=== PATIENT | female | born 1955 | race Caucasian/White ===

== ENCOUNTER 2016-07-30 14:01 | Emergency (ER) | payer MEDICARE, BC ==
[2016-07-30] MEDS ORDERED: Ondansetron 4 MG/2 ML SDV IVPUSH ONE (14:34)
[2016-07-30] MEDS ORDERED: Sodium Chloride 0.9% 10 ML Syringe FLUSH PRN (14:34)
[2016-07-30] MEDS ORDERED: Famotidine 20 MG/2 ML SDV IVPUSH ONE (14:34)
[2016-07-30] MEDS ORDERED: HYDROmorphone 1 MG/ML Syringe IVPUSH ONE (14:34)
--- NOTE | 2016-07-30 14:39 | EDM.PDOC ---
ED HPI GENERAL MEDICAL PROBLEM - General Chief Complaint: Gastrointestinal Problem Stated Complaint: VOMITING Time Seen by Provider: 07/30/16 14:25 Source of Information: Reports: Patient, RN Notes Reviewed - History of Present Illness INITIAL COMMENTS - FREE TEXT/NARRATIVE: 60-year-old female comes in with severe nausea vomiting. She states that she started with some nausea and mild abdominal achiness last evening. SHe now has severe repetitive vomiting. Continues to be very nauseated at this time. She has not been having diarrhea. No fever or chills. No major pain or cramping at this time. She's not been able to eat, not taking much for fluids. Her mouth is starting to get dry. She feels dizzy and lightheaded when standing. I see that she is on a fentanyl patch. She also does take hydrocodone a couple of times a day. She states that her "joints are very achy and uncomfortable". - Related Data Allergies Allergy/AdvReac Type Severity Reaction Status Date / Time amoxicillin Allergy Dizziness Verified 07/30/16 14:23 cefdinir Allergy Diarrhea Verified 07/30/16 14:23 clindamycin Allergy Blurred Verified 07/30/16 14:23 Vision esomeprazole magnesium Allergy Edema Verified 07/30/16 14:23 [From Vimovo] levofloxacin [From Levaquin] Allergy Insomnia Verified 07/30/16 14:23 morphine Allergy Tachycardia Verified 07/30/16 14:23 naproxen Allergy Edema Verified 07/30/16 14:23 Home Meds: Home Meds Acetaminophen [Tylenol] 325 mg PO DAILY PRN 05/22/15 [History] Albuterol Sulfate 2 puff IH Q4H PRN 05/22/15 [History] Fluticasone Propionate [Flonase] 1 spray NASBOTH DAILY 05/22/15 [History] Gabapentin [Neurontin] 800 mg PO TID 05/22/15 [History] Hydrocodone/Acetaminophen [[place] 5-325 Tablet] 1 each PO Q12H PRN 05/22/15 [ History] Ibuprofen [Advil] 600 mg PO DAILY PRN 05/22/15 [History] LORazepam [Ativan] 0.5 mg PO TID PRN 05/22/15 [History] Lisinopril 5 mg PO DAILY 05/22/15 [History] Mirtazapine [Remeron] 15 mg PO DAILY 05/22/15 [History] Pantoprazole [Protonix] 40 mg PO DAILY 05/22/15 [History] Propranolol [Inderal] 20 mg PO TID 05/22/15 [History] Pseudoephedrine HCl [Sudafed 12 Hour] 120 mg PO Q12H 05/22/15 [History] Triamterene/Hydrochlorothiazid [Triamterene-HCTZ 37.5-25 MG] 1 cap PO DAILY PRN 05/22/15 [History] Venlafaxine [Effexor XR] 300 mg PO DAILY 05/22/15 [History] Verapamil HCl [Verapamil ER] 240 mg PO DAILY 05/22/15 [History] Zolpidem [Ambien] 10 mg PO BEDTIME 05/22/15 [History] atorvaSTATin [Lipitor] 40 mg PO DAILY 05/22/15 [History] fentaNYL [Fentanyl] 1 each TD Q72H 05/22/15 [History] Insulin Glargine,Hum.Rec.Anlog [Tochelo Solni] 52 units SUBCUT QPM 07/30/16 [ History] rOPINIRole HCl [Requip] 2 tab PO QPM 07/30/16 [History] Past Medical History HEENT History: Reports: Other (See Below) Other HEENT History: lip ulcer, recurrent ear infections to right ear Cardiovascular History: Reports: High Cholesterol, Hypertension Respiratory History: Reports: Sleep Apnea Genitourinary History: Reports: Other (See Below) Other Genitourinary History: urge incontinence Neurological History: Reports: Migraines Psychiatric History: Reports: Depression Endocrine/Metabolic History: Reports: Diabetes, Type II Dermatologic History: Reports: Other (See Below) Other Dermatologic History: lumbago - Past Surgical History Neurological Surgical History: Reports: Spinal Fusion Musculoskeletal Surgical History: Reports: Carpal Tunnel, Knee Replacement Social & Family History - Tobacco Use Smoking Status *Q: Never Smoker - Recreational Drug Use Recreational Drug Use: No ED ROS GENERAL - Review of Systems Review Of Systems: See Below Constitutional: Denies: Fever, Chills HEENT: Denies: Sinus Problem, Throat Pain Respiratory: Denies: Shortness of Breath Cardiovascular: Denies: Chest Pain GI/Abdominal: Reports: Abdominal Pain (Mild generalized achiness), Nausea, Vomiting. Denies: Diarrhea, Hematochezia, Melena (Frequent severe) : Reports: No Symptoms Musculoskeletal: Reports: Joint Pain (Upper and lower extremities). Denies: Back Pain Skin: Reports: No Symptoms Neurological: Reports: Dizziness. Denies: Trouble Speaking, Difficulty Walking ED EXAM, GI/ABD - Physical Exam Exam: See Below General Appearance: Alert, Mild Distress Eyes: Bilateral: Normal Appearance Throat/Mouth: Normal Inspection, Normal Oropharynx Head: Atraumatic Neck: Supple, Full Range of Motion Respiratory/Chest: No Respiratory Distress, Lungs Clear, Normal Breath Sounds Cardiovascular: Regular Rate, Rhythm GI/Abdominal: Soft, Non-Tender. No: Guarding, Rebound Back Exam: No: CVA Tenderness (L), CVA Tenderness (R) Extremities: Normal Inspection. No: Pedal Edema, Leg Pain Neurological: Alert, Oriented, No Motor/Sensory Deficits Skin Exam: Warm, Dry, Normal Color Course - Vital Signs Last Recorded V/S: Last Vital Signs Temp 98.8 F 07/30/16 14:23 Pulse 86 07/30/16 14:23 Resp 20 07/30/16 14:23 BP 149/103 H 07/30/16 14:23 Pulse Ox 88 L 07/30/16 14:23 - Orders/Labs/Meds Orders: Active Orders 24 hr Category Date Time Status Peripheral IV Care [RC] . DIRECTED Care 07/30/16 14:35 Active Sodium Chloride 0.9% [Normal Saline] 1,000 ml Med 07/30/16 14:45 Active IV ONETIME Sodium Chloride 0.9% [Saline Flush] Med 07/30/16 14:34 Active 10 ml FLUSH ASDIRECTED PRN Peripheral IV Insertion Adult [OM.PC] Stat Oth 07/30/16 14:34 Ordered Medication Orders Sodium Chloride (Normal Saline) 1,000 mls @ 999 mls/hr IV ONETIME MOHSEN Last Admin: 07/30/16 14:46 Dose: 999 mls/hr Sodium Chloride (Saline Flush) 10 ml FLUSH ASDIRECTED PRN PRN Reason: Keep Vein Open Last Admin: 07/30/16 14:47 Dose: 10 ml Labs: Laboratory Tests 07/30/16 07/30/16 Range/Units 14:55 14:55 WBC 10.48 H (3.98-10.04) K/mm3 RBC 4.25 (3.98-5.22) M/mm3 Hgb 12.8 (11.2-15.7) gm/L Hct 39.5 (34.1-44.9) % MCV 92.9 (79.4-94.8) fl MCH 30.1 (25.6-32.2) pg MCHC 32.4 (32.2-35.5) g/dl RDW Std Deviation 42.1 (36.4-46.3) fL Plt Count 209 (182-369) K/mm3 MPV 9.7 (9.4-12.3) fl Neut % (Auto) 85.3 H (34.0-71.1) % Lymph % (Auto) 7.4 L (19.3-51.7) % [place] % (Auto) 6.5 (4.7-12.5) % Eos % (Auto) 0.5 L (0.7-5.8) Baso % (Auto) 0.2 (0.1-1.2) % Neut # (Auto) 8.94 H (1.56-6.13) K/mm3 Lymph # (Auto) 0.78 L (1.18-3.74) K/mm3 [place] # (Auto) 0.68 H (0.24-0.36) K/mm3 Eos # (Auto) 0.05 (0.04-0.36) K/mm3 Baso # (Auto) 0.02 (0.01-0.08) K/mm3 Manual Slide Review Abnormal smear Sodium 140 (136-145) mEq/L Potassium 3.5 (3.5-5.1) mEq/L Chloride 102 (98-107) mEq/L Carbon Dioxide 28 (21-32) mEq/L Anion Gap 13.5 (5-15) BUN 13 (7-18) mg/dL Creatinine 0.9 (0.55-1.02) mg/dL Est Cr Clr Drug Dosing 53.23 mL/min Estimated GFR (MDRD) > 60 (>60) mL/min BUN/Creatinine Ratio 14.4 (14-18) Glucose 168 H (74-106) mg/dL Calcium 8.7 (8.5-10.1) mg/dL Total Bilirubin 0.7 (0.2-1.0) mg/dL AST 23 (15-37) U/L ALT 25 (14-59) U/L Alkaline Phosphatase 116 (46-116) U/L Total Protein 6.6 (6.4-8.2) g/dl Albumin 3.4 (3.4-5.0) g/dl Globulin 3.2 gm/dL Albumin/Globulin Ratio 1.1 (1-2) Meds: Medications Generic Name Dose Route Start Last Admin Trade Name Freq PRN Reason Stop Dose Admin Sodium Chloride 1,000 mls @ 999 mls/hr 07/30/16 14:45 07/30/16 14:46 Normal Saline IV 999 mls/hr ONETIME MOHSEN Administration Sodium Chloride 10 ml 07/30/16 14:34 07/30/16 14:47 Saline Flush FLUSH 10 ml ASDIRECTED PRN Administration Keep Vein Open Discontinued Medications Generic Name Dose Route Start Last Admin Trade Name Freq PRN Reason Stop Dose Admin Famotidine 20 mg 07/30/16 14:34 07/30/16 14:49 Pepcid IVPUSH 07/30/16 14:35 20 mg ONETIME ONE Administration Hydromorphone HCl 1 mg 07/30/16 14:34 07/30/16 14:49 Dilaudid IVPUSH 07/30/16 14:35 1 mg ONETIME ONE Administration Ondansetron HCl 4 mg 07/30/16 14:34 07/30/16 14:45 Zofran IVPUSH 07/30/16 14:35 4 mg ONETIME ONE Administration - Re-Assessments/Exams Free Text/Narrative Re-Assessment/Exam: 07/30/16 16:26 feeling better after 1 L IV fluid, IV Zofran and IV Pepcid, she is no longer vomiting. Discharge instructions as documented. Departure - Departure Time of Disposition: 16:25 Disposition: Home, Self-Care 01 Condition: fair Clinical Impression: Vomiting - Discharge Information Forms: ED Department Discharge Additional Instructions: Your blood sugar today was 168, your chemistries otherwise looked good. Clear liquids until this evening, then very careful bland diet as tolerated. Zofran ODT if needed for further nausea or vomiting. Followup clinic if not much better within one to 2 days as expected, return to ED if symptoms worsening in any way - My Orders Last 24 Hours: My Active Orders 07/30/16 14:34 Sodium Chloride 0.9% [Saline Flush] 10 ml FLUSH ASDIRECTED PRN Peripheral IV Insertion Adult [OM.PC] Stat 07/30/16 14:35 Peripheral IV Care [RC] . DIRECTED 07/30/16 14:45 Sodium Chloride 0.9% [Normal Saline] 1,000 ml IV ONETIME - Assessment/Plan Last 24 Hours: My Active Orders 07/30/16 14:34 Sodium Chloride 0.9% [Saline Flush] 10 ml FLUSH ASDIRECTED PRN Peripheral IV Insertion Adult [OM.PC] Stat 07/30/16 14:35 Peripheral IV Care [RC] . DIRECTED 07/30/16 14:45 Sodium Chloride 0.9% [Normal Saline] 1,000 ml IV ONETIME
[2016-07-30] MEDS ORDERED: Sodium Chloride 0.9% 1,000 ML IV SCH (14:45)
[2016-07-30 16:50] VITALS: BP 158/60
== END 2016-07-30 16:51 | disposition home or self-care (01) ==
LOC: JD.ED 14:01
DX: R11.10 Vomiting, unspecified (principal); E78.00 Pure hypercholesterolemia, unspecified; I10 Essential (primary) hypertension; F32.9 Major depressive disorder, single episode, unspecified; E11.9 Type 2 diabetes mellitus without complications; Z88.1 Allergy status to other antibiotic agents; Z88.5 Allergy status to narcotic agent; Z79.899 Other long term (current) drug therapy; Z79.4 Long term (current) use of insulin
CPT/HCPCS: 36415; 80053; 85025; 96361; 96374; 96375; 99284; J1170; J2405; J7040; J7050

== ENCOUNTER 2017-07-23 12:05 | Emergency (ER) | payer MEDICARE, BC ==
[2017-07-23 12:34] VITALS: BP 139/86
[2017-07-23] MEDS ORDERED: Diphtheria,Pertussis(Acell),Tetanus Vaccine 0.5 ML SDV IM ONE (12:38)
[2017-07-23] MEDS ORDERED: Lidocaine 1% 50 ML MDV INJECT ONE (12:38)
--- NOTE | 2017-07-23 12:48 | EDM.PDOC ---
ED HPI GENERAL MEDICAL PROBLEM - General Chief Complaint: Laceration Stated Complaint: FELL MULTIPLE INJURIES Time Seen by Provider: 07/23/17 12:33 Source of Information: Reports: Patient, RN Notes Reviewed - History of Present Illness INITIAL COMMENTS - FREE TEXT/NARRATIVE: 7-year-old lady comes in with facial laceration. She tripped and fell on some cement outside doing some yard work. She did fall with her face and left knee against the concrete. She suffered abrasion injury of the forehead and suffered a laceration of her face between upper lip and nose. The lack is moderately deep and gaping. No intraoral injury. No headache at this time. There was no LOC. There's been no nausea or vomiting. Right Face Pain Score (Numeric/FACES): 2 - Related Data Allergies Allergy/AdvReac Type Severity Reaction Status Date / Time amoxicillin Allergy Dizziness Verified 07/23/17 12:23 cefdinir Allergy Diarrhea Verified 07/23/17 12:23 clindamycin Allergy Blurred Verified 07/23/17 12:23 Vision esomeprazole magnesium Allergy Edema Verified 07/23/17 12:23 [From Vimovo] levofloxacin [From Levaquin] Allergy Insomnia Verified 07/23/17 12:23 morphine Allergy Tachycardia Verified 07/23/17 12:23 naproxen Allergy Edema Verified 07/23/17 12:23 Home Meds: Home Meds Acetaminophen [Tylenol] 325 mg PO DAILY PRN 05/22/15 [History] Albuterol Sulfate 2 puff IH Q4H PRN 05/22/15 [History] Fluticasone Propionate [Flonase] 1 spray NASBOTH DAILY 05/22/15 [History] Gabapentin [Neurontin] 800 mg PO TID 05/22/15 [History] Hydrocodone/Acetaminophen [[place] 5-325 Tablet] 1 each PO Q12H PRN 05/22/15 [ History] Ibuprofen [Advil] 600 mg PO DAILY PRN 05/22/15 [History] LORazepam [Ativan] 0.5 mg PO TID PRN 05/22/15 [History] Lisinopril 5 mg PO DAILY 05/22/15 [History] Mirtazapine [Remeron] 15 mg PO DAILY 05/22/15 [History] Pantoprazole [Protonix] 40 mg PO DAILY 05/22/15 [History] Propranolol [Inderal] 20 mg PO TID 05/22/15 [History] Pseudoephedrine HCl [Sudafed 12 Hour] 120 mg PO Q12H 05/22/15 [History] Triamterene/Hydrochlorothiazid [Triamterene-HCTZ 37.5-25 MG] 1 cap PO DAILY PRN 05/22/15 [History] Venlafaxine [Effexor XR] 300 mg PO DAILY 05/22/15 [History] Verapamil HCl [Verapamil ER] 240 mg PO DAILY 05/22/15 [History] Zolpidem [Ambien] 10 mg PO BEDTIME 05/22/15 [History] atorvaSTATin [Lipitor] 40 mg PO DAILY 05/22/15 [History] fentaNYL [Fentanyl] 1 each TD Q72H 05/22/15 [History] Insulin Glargine,Hum.Rec.Anlog [Toujeo Solostar] 70 units SUBCUT QPM 07/30/16 [ History] rOPINIRole HCl [Requip] 2 tab PO TID 07/30/16 [History] Past Medical History HEENT History: Reports: Other (See Below) Other HEENT History: lip ulcer, recurrent ear infections to right ear Cardiovascular History: Reports: High Cholesterol, Hypertension Respiratory History: Reports: Sleep Apnea Genitourinary History: Reports: Other (See Below) Other Genitourinary History: urge incontinence Neurological History: Reports: Migraines Psychiatric History: Reports: Depression Endocrine/Metabolic History: Reports: Diabetes, Type II Dermatologic History: Reports: Other (See Below) Other Dermatologic History: lumbago - Past Surgical History Neurological Surgical History: Reports: Spinal Fusion Musculoskeletal Surgical History: Reports: Carpal Tunnel, Knee Replacement Social & Family History - Family History Family Medical History: Noncontributory - Tobacco Use Smoking Status *Q: Never Smoker Second Hand Smoke Exposure: No - Caffeine Use Caffeine Use: Reports: Coffee - Recreational Drug Use Recreational Drug Use: No ED ROS GENERAL - Review of Systems Review Of Systems: See Below Constitutional: Reports: No Symptoms HEENT: Denies: Ear Discharge, Ear Pain, Nosebleed, Nose Pain Respiratory: Denies: Shortness of Breath Cardiovascular: Denies: Chest Pain GI/Abdominal: Denies: Abdominal Pain, Nausea, Vomiting Musculoskeletal: Denies: Neck Pain, Back Pain, Joint Pain Skin: Reports: Other (Facial lack) Neurological: Denies: Headache, Numbness, Tingling, Trouble Speaking, Difficulty Walking, Weakness ED EXAM, SKIN/RASH Exam: See Below General Appearance: Alert, No Apparent Distress Eye Exam: Bilateral Eye: PERRL Ears: Normal External Exam Nose: Normal Inspection Throat/Mouth: Normal Inspection, Other Head: Other (No intraoral injury superficial abrasion of the forehead) Neck: Supple Respiratory/Chest: No Respiratory Distress Extremities: Normal Inspection, Normal Range of Motion, Other (No bony tenderness, left knee nontender, good range of motion) Neurological: Alert, Oriented, No Motor/Sensory Deficits Skin: Warm, Dry, Other (2 cm laceration below the right nares, moderately deep, gaping) ED SKIN PROCEDURES - Laceration/Wound Repair Face Lac/Wound length In cm: 1.5 Appearance: Linear Distal NVT: Neuro & Vascular Intact Anesthetic Type: Local Local Anesthesia - Lidocaine (Xylocaine): 1% Plain # of Sutures: 5 Suture Type: Nylon Suture Size: other (and 5-0) Course - Vital Signs Last Recorded V/S: Last Vital Signs Temp 97.3 F 07/23/17 12:33 Pulse 79 07/23/17 12:33 Resp 16 07/23/17 12:33 BP 139/86 07/23/17 12:33 Pulse Ox 94 L 07/23/17 12:33 - Orders/Labs/Meds Orders: Active Orders 24 hr Category Date Time Status Vaccines to be Administered [RC] PER UNIT ROUTINE Care 07/23/17 12:39 Active Meds: Medications Discontinued Medications Generic Name Dose Route Start Last Admin Trade Name Vaibhav PRN Reason Stop Dose Admin Diphtheria/Tetanus/Acell Pertussis 0.5 ml 07/23/17 12:38 07/23/17 12:47 Adacel IM 07/23/17 12:39 0.5 ml .ONCE ONE Administration Lidocaine HCl 50 ml 07/23/17 12:38 07/23/17 12:48 Xylocaine 1% INJECT 07/23/17 12:39 50 ml ONETIME ONE Administration Departure - Departure Time of Disposition: 13:50 Disposition: Home, Self-Care 01 Condition: Fair Clinical Impression: Forehead abrasion Qualifiers: Encounter type: initial encounter Qualified Code(s): S00.81XA - Abrasion of other part of head, initial encounter Facial laceration Qualifiers: Encounter type: initial encounter Qualified Code(s): S01.81XA - Laceration without foreign body of other part of head, initial encounter - Discharge Information Referrals: Bill Quiros MD [Primary Care Provider] - Forms: ED Department Discharge Additional Instructions: Laceration care instructions, stitches should come out in about 5-6 days, apply antibiotic ointment 2-3 times daily, there is no charge if you choose to have these taken out at her [facility]. Call [phone] for appointment. - My Orders Last 24 Hours: My Active Orders 07/23/17 12:39 Vaccines to be Administered [RC] PER UNIT ROUTINE - Assessment/Plan Last 24 Hours: My Active Orders 07/23/17 12:39 Vaccines to be Administered [RC] PER UNIT ROUTINE
== END 2017-07-23 14:20 | disposition home or self-care (01) ==
LOC: JD.ED 12:05
DX: S01.21XA Laceration without foreign body of nose, initial encounter (principal); S00.81XA Abrasion of other part of head, initial encounter; E78.00 Pure hypercholesterolemia, unspecified; I10 Essential (primary) hypertension; Z88.1 Allergy status to other antibiotic agents; Z23 Encounter for immunization; Z88.8 Allergy status to other drugs, medicaments and biological substances; W01.0XXA Fall on same level from slipping, tripping and stumbling without subsequent striking against object, initial encounter; Y92.007 Garden or yard of unspecified non-institutional (private) residence as the place of occurrence of the external cause
CPT/HCPCS: 12011; 90471; 90715; 99282; 99284-25

== ENCOUNTER 2018-06-21 21:40 | Emergency (ER) | payer MEDICARE, BC ==
[2018-06-21 21:50] VITALS: BP 172/87
--- NOTE | 2018-06-21 22:26 | EDM.PDOC ---
ED HPI GENERAL MEDICAL PROBLEM - General Chief Complaint: Genitourinary Problem Stated Complaint: BLOOD IN URINE Time Seen by Provider: 06/21/18 21:50 Source of Information: Reports: Patient History Limitations: Reports: No Limitations - History of Present Illness INITIAL COMMENTS - FREE TEXT/NARRATIVE: The patient presents with hematuria. At about 7:30 tonight the patient had urgency and when she went she had some blood in her urine. She had no pain with urination but she had some pressure in her lower abdomen. She has not had a bladder infection in years. She has no fever or chills. She has no nausea or vomiting. Onset: Sudden Duration: Hour(s): Location: Reports: Abdomen Quality: Reports: Pressure Severity: Mild Improves with: Reports: None Worsens with: Reports: None Associated Symptoms: Denies: Chest Pain, Cough, Fever/Chills, Headaches, Nausea/ Vomiting, Shortness of Breath - Related Data Allergies Allergy/AdvReac Type Severity Reaction Status Date / Time amoxicillin Allergy Dizziness Verified 07/23/17 12:23 cefdinir Allergy Diarrhea Verified 07/23/17 12:23 clindamycin Allergy Blurred Verified 07/23/17 12:23 Vision esomeprazole magnesium Allergy Edema Verified 07/23/17 12:23 [From Vimovo] levofloxacin [From Levaquin] Allergy Insomnia Verified 07/23/17 12:23 morphine Allergy Tachycardia Verified 07/23/17 12:23 naproxen Allergy Edema Verified 07/23/17 12:23 Home Meds: Home Meds Acetaminophen [Tylenol] 325 mg PO DAILY PRN 05/22/15 [History] Albuterol Sulfate 2 puff IH Q4H PRN 05/22/15 [History] Fluticasone Propionate [Flonase] 1 spray NASBOTH DAILY 05/22/15 [History] Gabapentin [Neurontin] 800 mg PO TID 05/22/15 [History] Hydrocodone/Acetaminophen [[place] 5-325 Tablet] 5 - 325 mg PO Q12H PRN 05/22/15 [ History] Ibuprofen [Advil] 600 mg PO DAILY PRN 05/22/15 [History] LORazepam [Ativan] 1 mg PO BID 05/22/15 [History] Lisinopril 5 mg PO DAILY 05/22/15 [History] Mirtazapine [Remeron] 15 mg PO DAILY 05/22/15 [History] Pantoprazole [Protonix] 40 mg PO DAILY 05/22/15 [History] Propranolol [Inderal] 20 mg PO TID 05/22/15 [History] Triamterene/Hydrochlorothiazid [Triamterene-HCTZ 37.5-25 MG] 1 cap PO DAILY PRN 05/22/15 [History] Venlafaxine [Effexor XR] 300 mg PO DAILY 05/22/15 [History] Verapamil HCl [Verapamil ER] 240 mg PO DAILY 05/22/15 [History] Zolpidem [Ambien] 10 mg PO BEDTIME 05/22/15 [History] atorvaSTATin [Lipitor] 40 mg PO DAILY 05/22/15 [History] fentaNYL [Fentanyl] 1 each TD Q72H 05/22/15 [History] Insulin Glargine,Hum.Rec.Anlog [Toujeo Solostar] 76 units SUBCUT BEDTIME [History] rOPINIRole HCl [Requip] 0.75 mg PO BEDTIME 07/30/16 [History] Nitrofurantoin Monohyd/M-Cryst [Macrobid 100 mg Capsule] 100 mg PO BID #10 capsule 06/22/18 [Rx] Ondansetron [Zofran ODT] 4 mg PO Q6H PRN #20 tab.dis 06/22/18 [Rx] Past Medical History HEENT History: Reports: Other (See Below) Other HEENT History: lip ulcer, recurrent ear infections to right ear Cardiovascular History: Reports: High Cholesterol, Hypertension Respiratory History: Reports: Sleep Apnea Genitourinary History: Reports: Other (See Below) Other Genitourinary History: urge incontinence Neurological History: Reports: Migraines Psychiatric History: Reports: Depression Endocrine/Metabolic History: Reports: Diabetes, Type II Dermatologic History: Reports: Other (See Below) Other Dermatologic History: lumbago - Past Surgical History Neurological Surgical History: Reports: Spinal Fusion Musculoskeletal Surgical History: Reports: Carpal Tunnel, Knee Replacement Social & Family History - Family History Family Medical History: Noncontributory - Tobacco Use Smoking Status *Q: Never Smoker - Caffeine Use Caffeine Use: Reports: Coffee - Recreational Drug Use Recreational Drug Use: No ED ROS GENERAL - Review of Systems Review Of Systems: See Below Constitutional: Reports: No Symptoms HEENT: Reports: No Symptoms Respiratory: Reports: No Symptoms Cardiovascular: Reports: No Symptoms Endocrine: Reports: No Symptoms GI/Abdominal: Reports: Abdominal Pain : Reports: Frequency, Hematuria, Urgency. Denies: Dysuria Musculoskeletal: Reports: No Symptoms Skin: Reports: No Symptoms ED EXAM, RENAL/ - Physical Exam Exam: See Below Exam Limited By: No Limitations General Appearance: Alert, No Apparent Distress Ears: Normal External Exam Nose: Normal Inspection Head: Atraumatic, Normocephalic Neck: Normal Inspection Respiratory/Chest: No Respiratory Distress, Lungs Clear, Normal Breath Sounds Cardiovascular: Regular Rate, Rhythm, No Edema, No Murmur GI/Abdominal: Soft, Non-Tender, No Organomegaly, No Mass Back Exam: Normal Inspection Extremities: Normal Inspection Neurological: Alert, Oriented, No Motor/Sensory Deficits Course - Vital Signs Last Recorded V/S: Last Vital Signs Temp 98.1 F 06/21/18 21:46 Pulse 82 06/21/18 21:46 Resp 20 06/21/18 21:46 BP 172/87 H 06/21/18 21:46 Pulse Ox 93 L 06/21/18 21:46 - Orders/Labs/Meds Orders: Active Orders 24 hr Category Date Time Status Abdomen Pelvis wo Cont [CT] Stat Exams 06/21/18 22:39 Taken CULTURE URINE [RM] Stat Lab 06/21/18 22:05 Received Labs: Laboratory Tests 06/21/18 06/21/18 06/21/18 Range/Units 22:05 22:50 22:50 WBC 9.84 (3.98-10.04) K/mm3 RBC 4.08 (3.98-5.22) M/mm3 Hgb 12.1 (11.2-15.7) gm/L Hct 39.0 (34.1-44.9) % MCV 95.6 H (79.4-94.8) fl MCH 29.7 (25.6-32.2) pg MCHC 31.0 L (32.2-35.5) g/dl RDW Std Deviation 47.2 H (36.4-46.3) fL Plt Count 208 (182-369) K/mm3 MPV 10.0 (9.4-12.3) fl Neut % (Auto) 70.8 (34.0-71.1) % Lymph % (Auto) 17.6 L (19.3-51.7) % [place] % (Auto) 8.3 (4.7-12.5) % Eos % (Auto) 2.6 (0.7-5.8) Baso % (Auto) 0.4 (0.1-1.2) % Neut # (Auto) 6.96 H (1.56-6.13) K/mm3 Lymph # (Auto) 1.73 (1.18-3.74) K/mm3 [place] # (Auto) 0.82 H (0.24-0.36) K/mm3 Eos # (Auto) 0.26 (0.04-0.36) K/mm3 Baso # (Auto) 0.04 (0.01-0.08) K/mm3 Sodium 145 (136-145) mEq/L Potassium 3.7 (3.5-5.1) mEq/L Chloride 105 (98-107) mEq/L Carbon Dioxide 31 (21-32) mEq/L Anion Gap 12.7 (5-15) BUN 10 (7-18) mg/dL Creatinine 0.9 (0.55-1.02) mg/dL Est Cr Clr Drug Dosing 51.92 mL/min Estimated GFR (MDRD) > 60 (>60) mL/min BUN/Creatinine Ratio 11.1 L (14-18) Glucose 123 H (80-115) mg/dL Calcium 9.7 (8.5-10.1) mg/dL Total Bilirubin 0.4 (0.2-1.0) mg/dL AST 18 (15-37) U/L ALT 21 (14-59) U/L Alkaline Phosphatase 136 H (46-116) U/L Total Protein 6.7 (6.4-8.2) g/dl Albumin 3.6 (3.4-5.0) g/dl Globulin 3.1 gm/dL Albumin/Globulin Ratio 1.2 (1-2) Lipase 95 (73-393) U/L Urine Color Red H (Yellow) Urine Appearance Turbid H (Clear) Urine pH 7.0 (5.0-8.0) Ur Specific [place] 1.025 (1.005-1.030) Urine Protein 2+ H (Negative) Urine Glucose (UA) Negative (Negative) Urine Ketones Negative (Negative) Urine Occult Blood 3+ H (Negative) Urine Nitrite Negative (Negative) Urine Bilirubin 1+ H (Negative) Urine Urobilinogen 1.0 (0.2-1.0) Ur Leukocyte Esterase Trace H (Negative) Urine RBC >100 H (0-5) /hpf Urine WBC 0-5 (0-5) /hpf Ur Epithelial Cells 0-5 (0-5) /hpf Urine Bacteria Few (FEW) /hpf Urine Mucus Not seen (FEW) /hpf - Re-Assessments/Exams Free Text/Narrative Re-Assessment/Exam: 06/21/18 22:26 I ordered a UA. 06/22/18 00:08 Her UA shows blood but not many WBCs or bacteria. I am concerned more about a kidney stone now. I have ordered labs and a CT of her abdomen and pelvis without contrast. 06/22/18 00:09 Her CBC looks good. Her CMP looks good. Her lipase is normal. Her CT shows mild pervesical stranding could reflect cystitis. I have a urine culture cooking and I ordered a urine culture. I will need to get her on some macrobid and have her follow up with her doctor. Departure - Departure Time of Disposition: 00:20 Disposition: Home, Self-Care 01 Condition: Good Clinical Impression: UTI, Urinary tract infectious disease - Discharge Information *PRESCRIPTION DRUG MONITORING PROGRAM REVIEWED*: Not Applicable *COPY OF PRESCRIPTION DRUG MONITORING REPORT IN PATIENT SHRADDHA: Not Applicable Prescriptions: Nitrofurantoin Monohyd/M-Cryst [Macrobid 100 mg Capsule] 100 mg PO BID #10 capsule Ondansetron [Zofran ODT] 4 mg PO Q6H PRN #20 tab.dis PRN Reason: Nausea\vomiting Referrals: Bill Quiros MD [Primary Care Provider] - 1 Week Forms: ED Department Discharge Additional Instructions: Take the zofran every 6 hours as needed for nausea and vomiting. Drink plenty of water. Take the macrobid 2 times per day for 5 days. Follow up with Dr Quiros in a week. Please return if you are worse. - My Orders Last 24 Hours: My Active Orders 06/21/18 22:05 CULTURE URINE [RM] Stat 06/21/18 22:39 Abdomen Pelvis wo Cont [CT] Stat - Assessment/Plan Last 24 Hours: My Active Orders 06/21/18 22:05 CULTURE URINE [RM] Stat 06/21/18 22:39 Abdomen Pelvis wo Cont [CT] Stat
[2018-06-22] MEDS ORDERED: Ondansetron 4 MG Tab.DIS PO ONE (00:14)
[2018-06-22] MEDS ORDERED: Nitrofurantoin Monohydrate/Macrocrystalline 100 MG Cap PO ONE (00:14)
--- NOTE | 2018-06-22 07:14 | CT ---
CT abdomen and pelvis Technique: Multiple axial sections were obtained from above the dome of the diaphragm inferiorly through the pubic symphysis. Intravenous and oral contrast was not utilized. Study has been performed as a ureteral stone protocol. Comparison: No prior abdominal imaging is available. Findings: Kidneys show no abnormal calcifications. No ureteral dilatation is seen. No ureteral calculi are identified. Preliminary report states perivesical stranding which I believe is incidental and due to under-distention of the bladder. Visualized lung bases show nothing acute. Noncontrast appearance of the liver appears within normal limits. Small hiatal hernia is seen. Esophageal wall thickening is noted most likely due to changes of chronic reflux esophagitis. Spleen size is normal. Adrenal glands show no nodule. Pancreas is within normal limits. Gallbladder contains no calcified gallstones. Aorta shows no aneurysm. No retroperitoneal adenopathy or mesenteric abnormalities are seen. No pelvic mass or adenopathy is seen. Bone window settings were reviewed which show degenerative change scattered within the spine. Impression: 1. No renal calculi or ureteral stone. 2. Small hiatal hernia with esophageal wall thickening most likely representing changes of chronic reflux esophagitis. 3. Other incidental findings. Nothing acute is appreciated. Diagnostic code #2 I mostly agree with preliminary report from [facility], finalized on 06/22/18, 1:02 AM Central Time, code #2
== END 2018-06-22 00:23 | disposition home or self-care (01) ==
LOC: JD.ED 21:40
DX: N39.0 Urinary tract infection, site not specified (principal); I10 Essential (primary) hypertension; E78.00 Pure hypercholesterolemia, unspecified; E11.9 Type 2 diabetes mellitus without complications; Z79.899 Other long term (current) drug therapy; Z88.5 Allergy status to narcotic agent; Z88.6 Allergy status to analgesic agent; Z88.1 Allergy status to other antibiotic agents; Z88.8 Allergy status to other drugs, medicaments and biological substances
CPT/HCPCS: 36415; 74176; 80053; 81001; 83690; 85025; 87086; 87088; 87186; 99284; A9270; 99283

== ENCOUNTER 2019-08-06 10:46 | Emergency (ER) | payer MEDICARE, BC ==
--- NOTE | 2019-08-06 11:07 | EDM.PDOC ---
ED HPI GENERAL MEDICAL PROBLEM - General Chief Complaint: Cardiovascular Problem Stated Complaint: SWOLLEN BODY/HEART PRESSURE/FLUID IN LUNGS/SOB Time Seen by Provider: 08/06/19 10:59 Source of Information: Reports: Patient, RN Notes Reviewed History Limitations: Reports: No Limitations - History of Present Illness INITIAL COMMENTS - FREE TEXT/NARRATIVE: Patient is a 63-year-old female who presents to the ED for the evaluation of a few different complaints. Patient notes that over the last 3 weeks she has been on and off Lasix. She states that she is currently taking 40 mg in the morning for these issues. Patient notes that she has gained over 27 pounds in the last 3 weeks, but states that the Lasix does seem to help a little bit. Patient states that today however she developed increasing shortness of breath, generalized lethargy, some chest discomfort and feels like her chest is heavy and it is harder to breathe, or get air in and out. Patient states she is not short of breath at rest necessarily, but does get quite winded with any sort of exertion. The patient notes that she has had increased urinary frequency due to the increased Lasix, but has not had any dysuria or urgency symptoms. She has not had any fever/chills, chest pain of sorts, nausea/vomiting/diarrhea or constipation. The patient does appreciate some swelling in her lower legs, and also some open sores for which she has been doctoring with mupirocin and antibiotics recently. She also notes that she had an echocardiogram done recently and told she had a "stiff heart". She states that she had vascular ultrasound done as well and that seem to be within normal limits. She had this done at the [facility]. Patient's primary care provider is Dr. Quiros. - Related Data Allergies Allergy/AdvReac Type Severity Reaction Status Date / Time esomeprazole magnesium Allergy Severe Edema Verified 08/06/19 11:05 [From Vimovo] amoxicillin Allergy Dizziness Verified 08/06/19 11:05 cefdinir Allergy Diarrhea Verified 08/06/19 11:05 clindamycin Allergy Blurred Verified 08/06/19 11:05 Vision duloxetine Allergy Delusions Verified 08/06/19 11:05 esomeprazole [From Nexium] Allergy Swelling Verified 08/06/19 11:05 levofloxacin [From Levaquin] Allergy Insomnia Verified 08/06/19 11:05 morphine Allergy Tachycardia Verified 08/06/19 11:05 naproxen Allergy Edema Verified 08/06/19 11:05 rivaroxaban [From Xarelto] Allergy Change Verified 08/06/19 11:05 Mental Status sitagliptin Allergy Shortness Verified 08/06/19 11:05 of Breath Home Meds: Home Meds Hydrocodone/Acetaminophen [[place] 5-325 Tablet] 5 - 325 mg PO Q12H PRN 05/22/15 [ History] Mirtazapine [Remeron] 22.5 mg PO DAILY 05/22/15 [History] Venlafaxine [Effexor XR] 150 mg PO BID 05/22/15 [History] atorvaSTATin [Lipitor] 40 mg PO DAILY 05/22/15 [History] rOPINIRole HCl [Requip] 0.5 mg PO ASDIRECTED 07/30/16 [History] Ondansetron [Zofran ODT] 4 mg PO Q6H PRN #20 tab.dis 06/22/18 [Rx] Albuterol [Ventolin HFA] 2 puff INH Q4H PRN 10/02/18 [History] Docusate Sodium [Colace] 100 mg PO DAILY PRN 10/02/18 [History] Fluticasone Propionate [Flonase] 2 spray NASBOTH DAILY 10/02/18 [History] Gabapentin [Neurontin] 800 mg PO TID 10/02/18 [History] Insulin Glargine,Hum.Rec.Anlog [Toujeo Solostar] 76 units SQ BEDTIME 10/02/18 [ History] Ondansetron [Zofran] 4 mg PO Q6H PRN 10/02/18 [History] Propranolol [Inderal] 20 mg PO TID 10/02/18 [History] Trolamine Salicylate/Aloe Vera [Aspercreme 10% Cream] 1 dose TOP ASDIRECTED PRN 10/02/18 [History] Verapamil [Covera-HS] 240 mg PO DAILY 10/02/18 [History] fentaNYL [Duragesic] 25 mcg TOP Q72H 10/02/18 [History] lisinopriL [Lisinopril] 5 mg PO DAILY 10/02/18 [History] rOPINIRole [Requip] 1 mg PO TID 10/02/18 [History] Furosemide [Lasix] 40 mg PO DAILY 08/06/19 [History] Pantoprazole Sodium [Protonix] 40 mg PO DAILY 08/06/19 [History] Past Medical History HEENT History: Reports: Impaired Vision, Other (See Below) Other HEENT History: sinus polyp, disease of lips, visual loss, wears glasses Cardiovascular History: Reports: Heart Failure (was told she had a stiff heart that was demonstrated by Echo), High Cholesterol, Hypertension Respiratory History: Reports: Asthma, Bronchitis, Recurrent, Pneumonia, Recurrent, Sleep Apnea Gastrointestinal History: Reports: Chronic Constipation, Chronic Diarrhea, GERD Genitourinary History: Reports: Other (See Below), UTI, Recurrent Other Genitourinary History: bladder cancer, cervical mucous polyp, hematuria, incontinence, bladder surgery AUDIO VISUAL DIRECTOR History: Reports: Other (See Below) Other AUDIO VISUAL DIRECTOR History: dysmenorrhea, vaginitis, breast biopsy Musculoskeletal History: Reports: Other (See Below), Osteoarthritis Other Musculoskeletal History: tarsal tunnel syndrome, left knee pain, patellofemoral syndrome, joint pain, myalgia, myositis Neurological History: Reports: Migraines, Neuropathy, Diabetic, Other (See Below ) Other Neuro History: cervical herniated nucleus pulposus Psychiatric History: Reports: Anxiety, Depression, Other (See Below) Other Psychiatric History: insomnia, pain management Endocrine/Metabolic History: Reports: Diabetes, Type II, Obesity/BMI 30+ Oncologic (Cancer) History: Reports: Bladder Dermatologic History: Reports: Other (See Below) Other Dermatologic History: SQ skin infection, hair follicle infection, skin hypertrophy, viral warts - Infectious Disease History Infectious Disease History: Reports: Chicken Pox, Measles, Mumps - Past Surgical History HEENT Surgical History: Reports: Adenoidectomy, Naso-Sinus Surgery, Tonsillectomy Female Surgical History: Reports: Hysterectomy Neurological Surgical History: Reports: Other (See Below), Spinal Fusion Other Neurological Surgeries/Procedures: spine surgery, brain surgery Social & Family History - Family History Family Medical History: Noncontributory - Caffeine Use Caffeine Use: Reports: None ED ROS GENERAL - Review of Systems Review Of Systems: Comprehensive ROS is negative, except as noted in HPI. ED EXAM, GENERAL - Physical Exam Exam: See Below Exam Limited By: No Limitations General Appearance: Alert, WD/WN, No Apparent Distress Eye Exam: Bilateral Eye: Normal Inspection Ears: Normal External Exam Nose: Normal Inspection Throat/Mouth: Normal Inspection, Normal Lips, Normal Teeth, Normal Gums, Normal Oropharynx, Normal Voice, No Airway Compromise Head: Atraumatic, Normocephalic Neck: Normal Inspection Respiratory/Chest: No Respiratory Distress, Lungs Clear, No Accessory Muscle Use , Chest Non-Tender, Decreased Breath Sounds (mildly decreased bilaterally) Cardiovascular: Normal Peripheral Pulses, Regular Rate, Rhythm, No Murmur, Other (2+ edema to bilateral lower extemities) Peripheral Pulses: 3+: Dorsalis Pedis (L), Dorsalis Pedis (R) GI/Abdominal: Normal Bowel Sounds, Soft, Non-Tender, No Distention Extremities: Normal Inspection, Normal Capillary Refill Neurological: Alert, Oriented, Normal Cognition, No Motor/Sensory Deficits Psychiatric: Normal Affect, Normal Mood Skin Exam: Warm, Dry, Normal Color, No Rash, Wound/Incision (multiple small ulcer type lesions on bilateral lower extremities, presumably d/t venous stasis or diabetic complications.) Course - Vital Signs Last Recorded V/S: Last Vital Signs Temp 97.8 F 08/06/19 13:33 Pulse 60 08/06/19 13:33 Resp 16 08/06/19 13:33 BP 119/59 L 08/06/19 13:33 Pulse Ox 97 08/06/19 13:33 - Orders/Labs/Meds Orders: Active Orders 24 hr Category Date Time Status EKG Documentation Completion [RC] STAT Care 08/06/19 11:16 Active Mancera Catheter Insertion [Insert Urinary Catheter] [OM. Care 08/06/19 13:30 Ordered PC] Q24H Peripheral IV Care [RC] . DIRECTED Care 08/06/19 11:16 Active Urinary Catheter Assessment [RC] ASDIRECTED Care 08/06/19 13:22 Active Peripheral IV Insertion Adult [OM.PC] Urgent Oth 08/06/19 11:15 Ordered Labs: Laboratory Tests 08/06/19 08/06/19 08/06/19 Range/Units 11:05 11:05 11:05 WBC 9.43 (3.98-10.04) K/mm3 RBC 4.14 (3.98-5.22) M/mm3 Hgb 12.0 (11.2-15.7) gm/dl Hct 39.6 (34.1-44.9) % MCV 95.7 H (79.4-94.8) fl MCH 29.0 (25.6-32.2) pg MCHC 30.3 L (32.2-35.5) g/dl RDW Std Deviation 46.4 H (36.4-46.3) fL Plt Count 298 (182-369) K/mm3 MPV 10.2 (9.4-12.3) fl Neutrophils % (Manual) 66 H (40-60) % Band Neutrophils % 0 (0-10) % Lymphocytes % (Manual) 21 (20-40) % Atypical Lymphs % 0 % Monocytes % (Manual) 9 (2-10) % Eosinophils % (Manual) 4 (0.7-5.8) % Basophils % (Manual) 0 L (0.1-1.2) Platelet Estimate Adequate RBC Morph Comment Normal PT 10.3 (9.7-12.0) SECONDS INR 0.94 APTT 23 (22-31) SECONDS Sodium 146 H (136-145) mEq/L Potassium 2.9 L (3.5-5.1) mEq/L Chloride 102 (98-107) mEq/L Carbon Dioxide 36 H (21-32) mEq/L Anion Gap 10.9 (5-15) BUN 14 (7-18) mg/dL Creatinine 0.9 (0.55-1.02) mg/dL Est Cr Clr Drug Dosing 51.26 mL/min Estimated GFR (MDRD) > 60 (>60) mL/min BUN/Creatinine Ratio 15.6 (14-18) Glucose 109 (80-115) mg/dL Calcium 9.2 (8.5-10.1) mg/dL Magnesium 1.8 (1.8-2.4) mg/dl Total Bilirubin 0.6 (0.2-1.0) mg/dL AST 21 (15-37) U/L ALT 11 L (14-59) U/L Alkaline Phosphatase 154 H (46-116) U/L Troponin I 0.271 H* (0.00-0.056) ng/mL NT-Pro-B Natriuret Pep (0-125) pg/mL Total Protein 7.2 (6.4-8.2) g/dl Albumin 3.6 (3.4-5.0) g/dl Globulin 3.6 gm/dL Albumin/Globulin Ratio 1.0 (1-2) /19/20 Range/Units 11:05 WBC (3.98-10.04) K/mm3 RBC (3.98-5.22) M/mm3 Hgb (11.2-15.7) gm/dl Hct (34.1-44.9) % MCV (79.4-94.8) fl MCH (25.6-32.2) pg MCHC (32.2-35.5) g/dl RDW Std Deviation (36.4-46.3) fL Plt Count (182-369) K/mm3 MPV (9.4-12.3) fl Neutrophils % (Manual) (40-60) % Band Neutrophils % (0-10) % Lymphocytes % (Manual) (20-40) % Atypical Lymphs % % Monocytes % (Manual) (2-10) % Eosinophils % (Manual) (0.7-5.8) % Basophils % (Manual) (0.1-1.2) Platelet Estimate RBC Morph Comment PT (9.7-12.0) SECONDS INR APTT (22-31) SECONDS Sodium (136-145) mEq/L Potassium (3.5-5.1) mEq/L Chloride (98-107) mEq/L Carbon Dioxide (21-32) mEq/L Anion Gap (5-15) BUN (7-18) mg/dL Creatinine (0.55-1.02) mg/dL Est Cr Clr Drug Dosing mL/min Estimated GFR (MDRD) (>60) mL/min BUN/Creatinine Ratio (14-18) Glucose (80-115) mg/dL Calcium (8.5-10.1) mg/dL Magnesium (1.8-2.4) mg/dl Total Bilirubin (0.2-1.0) mg/dL AST (15-37) U/L ALT (14-59) U/L Alkaline Phosphatase (46-116) U/L Troponin I (0.00-0.056) ng/mL NT-Pro-B Natriuret Pep 257 H (0-125) pg/mL Total Protein (6.4-8.2) g/dl Albumin (3.4-5.0) g/dl Globulin gm/dL Albumin/Globulin Ratio (1-2) Meds: Medications Discontinued Medications Generic Name Dose Route Start Last Admin Trade Name Vaibhav PRN Reason Stop Dose Admin Aspirin 324 mg 08/06/19 12:08 08/06/19 12:17 Aspirin PO 08/06/19 12:09 324 mg ONETIME ONE Administration Furosemide 40 mg 08/06/19 12:34 08/06/19 12:51 Lasix IVPUSH 08/06/19 12:35 40 mg NOW ONE Administration Heparin Sodium (Porcine) 4,000 units 08/06/19 12:27 08/06/19 12:50 Heparin Sodium IVPUSH 08/06/19 12:28 4,000 units .BOLUS ONE Administration Heparin Sodium/Dextrose 25,000 units in 500 mls @ 29.719 mls/hr 08/06/19 12: 30 08/06/19 12:55 Heparin 25,000 Units In D5w 500 Ml IV 12 units/kg/hr TITRATE MOHSEN 29.719 mls/hr Administration Protocol 12 UNITS/KG/HR Ropinirole HCl 1 mg 08/06/19 13:05 08/06/19 13:13 Requip PO 08/06/19 13:06 1 mg ONETIME ONE Administration Sodium Chloride 10 ml 08/06/19 11:15 08/06/19 11:53 Saline Flush FLUSH 10 ml ASDIRECTED PRN Administration Keep Vein Open - Re-Assessments/Exams Free Text/Narrative Re-Assessment/Exam: 08/06/19 11:25 Patient presents to the ED for the evaluation of a few different complaints. Will get EKG, chest x-ray and baseline labs to evaluate for possible acute CHF exacerbation. 08/06/19 12:38 Patient's laboratory evaluation has come back, there is some hemolysis, she has some potassium abnormalities. CBC is within normal limits. PT/INR is essentially normal. The patient's BNP is 257, and the patient's troponin high 0.271, patient had no acute ST changes on her EKG, I did discuss these findings with Dr. Abreu, and he agrees that she is suffering from a non-STEMI. I have called [facility] in [place] for transfer, and Dr. Ying does accept at this time , and requests heparin bolus and drip be started along 40 mg Lasix. Chest x- ray is also done, and has some congestion, noted by myself. Official radiology read is pending. Departure - Departure Time of Disposition: 12:21 Disposition: DC/Tfer to Acute Hospital 02 Reason for Transfer *Q: Other (NSTEMI) Condition: Good Clinical Impression: NSTEMI (non-ST elevated myocardial infarction) Referrals: Bill Quiros MD [Primary Care Provider] - Forms: ED Department Discharge Sepsis Event Note - Evaluation Sepsis Screening Result: No Definite Risk - Focused Exam Vital Signs: Vital Signs Temp Pulse Resp BP Pulse Ox 08/06/19 13:33 97.8 F 60 16 119/59 L 97 08/06/19 11:01 97.1 F 63 20 131/57 L 100 Date Exam was Performed: 08/06/19 Time Exam was Performed: 22:44 - My Orders Last 24 Hours: My Active Orders 08/06/19 11:15 Peripheral IV Insertion Adult [OM.PC] Urgent 08/06/19 11:16 EKG Documentation Completion [RC] STAT Peripheral IV Care [RC] . DIRECTED 08/06/19 13:22 Urinary Catheter Assessment [RC] ASDIRECTED 08/06/19 13:30 Mancera Catheter Insertion [Insert Urinary Catheter] [OM.PC] Q24H - Assessment/Plan Last 24 Hours: My Active Orders 08/06/19 11:15 Peripheral IV Insertion Adult [OM.PC] Urgent 08/06/19 11:16 EKG Documentation Completion [RC] STAT Peripheral IV Care [RC] . DIRECTED 08/06/19 13:22 Urinary Catheter Assessment [RC] ASDIRECTED 08/06/19 13:30 Mancera Catheter Insertion [Insert Urinary Catheter] [OM.PC] Q24H
[2019-08-06] MEDS ORDERED: Sodium Chloride 0.9% 10 ML Syringe FLUSH PRN (11:15)
[2019-08-06] MEDS ORDERED: Aspirin 81 MG Tab.Chew PO ONE (12:08)
[2019-08-06] MEDS ORDERED: Heparin Sodium 5,000 Units/ML Vial IVPUSH ONE (12:27)
[2019-08-06] MEDS ORDERED: Heparin Sodium/D5W 25,000 UNITS/500 ML BAG IV SCH (12:30)
[2019-08-06] MEDS ORDERED: Furosemide 40 MG/4 ML VIAL IVPUSH ONE (12:34)
[2019-08-06] MEDS ORDERED: rOPINIRole 1 MG Tab PO ONE (13:05)
--- NOTE | 2019-08-06 13:40 | CR ---
Chest: Portable view of the chest was obtained. Comparison: No previous chest imaging is available. Heart is mildly enlarged. Upper mediastinum is within normal limits for portable technique. Prior cervical spine surgery is noted. Scoliosis is noted within the thoracic spine. Lungs are clear with no acute parenchymal change. Impression: 1. Cardiomegaly. Other findings as noted above. 2. Nothing acute is appreciated. Diagnostic code #2 This report was dictated in MDT
[2019-08-06 13:54] VITALS: BP 119/59; PULSE 60
== END 2019-08-06 13:33 ==
LOC: JD.ED 10:46
DX: I21.4 Non-ST elevation (NSTEMI) myocardial infarction (principal); Z88.0 Allergy status to penicillin; E78.00 Pure hypercholesterolemia, unspecified; I11.0 Hypertensive heart disease with heart failure; I50.9 Heart failure, unspecified; J45.909 Unspecified asthma, uncomplicated; K21.9 Gastro-esophageal reflux disease without esophagitis; M19.90 Unspecified osteoarthritis, unspecified site; G43.909 Migraine, unspecified, not intractable, without status migrainosus; E11.40 Type 2 diabetes mellitus with diabetic neuropathy, unspecified; F41.9 Anxiety disorder, unspecified; F32.9 Major depressive disorder, single episode, unspecified; E66.9 Obesity, unspecified; Z90.710 Acquired absence of both cervix and uterus; Z68.42 Body mass index [BMI] 45.0-49.9, adult; Z88.8 Allergy status to other drugs, medicaments and biological substances; Z88.5 Allergy status to narcotic agent; Z79.4 Long term (current) use of insulin; Z79.899 Other long term (current) drug therapy
CPT/HCPCS: 36415; 51702; 71045; 80053; 83735; 83880; 84484; 85007; 85027; 85610; 85730; 93005; 96365; 96375; 99285; A9270; J1644; J1940; 93010; 99284

== ENCOUNTER 2019-09-03 10:49 | Emergency (ER) | payer MEDICARE, BC ==
[2019-09-03 11:04] VITALS: BP 187/91; PULSE 83
[2019-09-03] MEDS ORDERED: Sodium Chloride 0.9% 10 ML Syringe FLUSH PRN (11:16)
[2019-09-03] MEDS ORDERED: Ondansetron 4 MG/2 ML SDV IVPUSH ONE (11:18)
--- NOTE | 2019-09-03 11:25 | EDM.PDOC ---
ED HPI GENERAL MEDICAL PROBLEM - General Chief Complaint: General Stated Complaint: RACING HEART Time Seen by Provider: 09/03/19 11:06 Source of Information: Reports: Patient, Old Records, RN Notes Reviewed History Limitations: Reports: No Limitations - History of Present Illness INITIAL COMMENTS - FREE TEXT/NARRATIVE: Patient is a 64-year-old female who presents to the ER today for the evaluation of generalized feelings of being unwell. She states that she was recently hospitalized last month, for combination of CHF and renal insufficiency. She was evaluated by myself, and I did transfer her to [facility] for a non-STEMI. She states that she was in the hospital 1 week, and discharged with a low-salt diet and a restricted liquid diet. Patient states everything was going fairly well, she had been limiting her activities, she gets plate out pretty quickly, but around 9:30 this morning, she developed generalized feelings of being unwell , states that she had some nausea but no vomiting, no chest pain, increasing feelings of dyspnea, where she just cannot catch a deep breath, she states that she did check her blood sugar this morning it was in the 150s. Patient states that she felt like her whole body was spasming now she feels cold and generally weak as well. She states that her heart feels as if it is pounding out of her chest. Patient's vital signs at time of triage: O2 sats are 99% on room air, pulse is 83, temperature is 98.2 F, respiratory rate is 16, blood pressure is 187/91, she appears to be in no obvious respiratory distress at this time - Related Data Allergies Allergy/AdvReac Type Severity Reaction Status Date / Time esomeprazole magnesium Allergy Severe Edema Verified 09/03/19 11:04 [From Vimovo] amoxicillin Allergy Dizziness Verified 09/03/19 11:04 cefdinir Allergy Diarrhea Verified 09/03/19 11:04 clindamycin Allergy Blurred Verified 09/03/19 11:04 Vision duloxetine Allergy Delusions Verified 09/03/19 11:04 esomeprazole [From Nexium] Allergy Swelling Verified 09/03/19 11:04 levofloxacin [From Levaquin] Allergy Insomnia Verified 09/03/19 11:04 morphine Allergy Tachycardia Verified 09/03/19 11:04 naproxen Allergy Edema Verified 09/03/19 11:04 rivaroxaban [From Xarelto] Allergy Change Verified 09/03/19 11:04 Mental Status sitagliptin Allergy Shortness Verified 09/03/19 11:04 of Breath Home Meds: Home Meds Hydrocodone/Acetaminophen [[place] 5-325 Tablet] 5 - 325 mg PO Q12H PRN 05/22/15 [ History] Mirtazapine [Remeron] 22.5 mg PO DAILY 05/22/15 [History] Venlafaxine [Effexor XR] 150 mg PO BID 05/22/15 [History] atorvaSTATin [Lipitor] 40 mg PO DAILY 05/22/15 [History] rOPINIRole HCl [Requip] 0.5 mg PO ASDIRECTED 07/30/16 [History] Ondansetron [Zofran ODT] 4 mg PO Q6H PRN #20 tab.dis 06/22/18 [Rx] Albuterol [Ventolin HFA] 2 puff INH Q4H PRN 10/02/18 [History] Docusate Sodium [Colace] 100 mg PO DAILY PRN 10/02/18 [History] Fluticasone Propionate [Flonase] 2 spray NASBOTH DAILY 10/02/18 [History] Gabapentin [Neurontin] 800 mg PO TID 10/02/18 [History] Insulin Glargine,Hum.Rec.Anlog [[place] Solostar] 76 units SQ BEDTIME 10/02/18 [ History] Ondansetron [Zofran] 4 mg PO Q6H PRN 10/02/18 [History] Propranolol [Inderal] 20 mg PO TID 10/02/18 [History] Trolamine Salicylate/Aloe Vera [Aspercreme 10% Cream] 1 dose TOP ASDIRECTED PRN 10/02/18 [History] Verapamil [Covera-HS] 240 mg PO DAILY 10/02/18 [History] fentaNYL [Duragesic] 25 mcg TOP Q72H 10/02/18 [History] lisinopriL [Lisinopril] 5 mg PO DAILY 10/02/18 [History] rOPINIRole [Requip] 1 mg PO TID 10/02/18 [History] Furosemide [Lasix] 40 mg PO DAILY 08/06/19 [History] Pantoprazole Sodium [Protonix] 40 mg PO DAILY 08/06/19 [History] Ondansetron [Zofran ODT] 4 mg PO Q8H PRN #12 tab.dis 09/03/19 [Rx] Potassium Chloride 40 meq PO ASDIRECTED #4 tablet.er 09/03/19 [Rx] Past Medical History HEENT History: Reports: Impaired Vision, Other (See Below) Other HEENT History: sinus polyp, disease of lips, visual loss, wears glasses Cardiovascular History: Reports: Heart Failure (was told she had a stiff heart that was demonstrated by Echo), High Cholesterol, Hypertension Respiratory History: Reports: Asthma, Bronchitis, Recurrent, Pneumonia, Recurrent, Sleep Apnea Gastrointestinal History: Reports: Chronic Constipation, Chronic Diarrhea, GERD Genitourinary History: Reports: Other (See Below), UTI, Recurrent Other Genitourinary History: bladder cancer, cervical mucous polyp, hematuria, incontinence, bladder surgery REPACKER History: Reports: Other (See Below) Other REPACKER History: dysmenorrhea, vaginitis, breast biopsy Musculoskeletal History: Reports: Other (See Below), Osteoarthritis Other Musculoskeletal History: tarsal tunnel syndrome, left knee pain, patellofemoral syndrome, joint pain, myalgia, myositis Neurological History: Reports: Migraines, Neuropathy, Diabetic, Other (See Below ) Other Neuro History: cervical herniated nucleus pulposus Psychiatric History: Reports: Anxiety, Depression, Other (See Below) Other Psychiatric History: insomnia, pain management Endocrine/Metabolic History: Reports: Diabetes, Type II, Obesity/BMI 30+ Oncologic (Cancer) History: Reports: Bladder Dermatologic History: Reports: Other (See Below) Other Dermatologic History: SQ skin infection, hair follicle infection, skin hypertrophy, viral warts - Infectious Disease History Infectious Disease History: Reports: Chicken Pox, Measles, Mumps - Past Surgical History HEENT Surgical History: Reports: Adenoidectomy, Naso-Sinus Surgery, Tonsillectomy Female Surgical History: Reports: Hysterectomy Neurological Surgical History: Reports: Other (See Below), Spinal Fusion Other Neurological Surgeries/Procedures: spine surgery, brain surgery Social & Family History - Family History Family Medical History: Noncontributory - Caffeine Use Caffeine Use: Reports: None ED ROS GENERAL - Review of Systems Review Of Systems: See Below Constitutional: Reports: Chills, Malaise (generalized). Denies: Fever Respiratory: Reports: Shortness of Breath (feeling like she can't catch a deep breath). Denies: Cough Cardiovascular: Denies: Chest Pain, Blood Pressure Problem, Edema, Lightheadedness GI/Abdominal: Reports: Nausea. Denies: Abdominal Pain, Constipation, Diarrhea, Vomiting : Denies: Dysuria, Frequency, Urgency ED EXAM, GENERAL - Physical Exam Exam: See Below Exam Limited By: No Limitations General Appearance: Alert, WD/WN, No Apparent Distress, Lethargic (slightly) Eye Exam: Bilateral Eye: EOMI, Normal Inspection, PERRL Ears: Normal External Exam Nose: Normal Inspection Throat/Mouth: Normal Inspection, Normal Lips, Normal Teeth, Normal Gums, Normal Oropharynx, Normal Voice, No Airway Compromise Head: Atraumatic, Normocephalic Neck: Normal Inspection Respiratory/Chest: No Respiratory Distress, Lungs Clear, Normal Breath Sounds, No Accessory Muscle Use, Chest Non-Tender Cardiovascular: Normal Peripheral Pulses, Regular Rate, Rhythm, No Edema, No Murmur Peripheral Pulses: 3+: Radial (L), Radial (R) GI/Abdominal: Normal Bowel Sounds, Soft, Non-Tender, No Distention, No Mass Extremities: Normal Inspection, Normal Capillary Refill Neurological: Alert, Oriented, Normal Cognition, No Motor/Sensory Deficits Psychiatric: Normal Affect, Normal Mood Skin Exam: Warm, Dry, Intact, Normal Color, No Rash EKG INTERPRETATION EKG Date: 09/03/19 Time: 10:56 Rhythm: NSR Rate (Beats/Min): 85 [place]: Normal P-Wave: Present QRS: Normal ST-T: Normal QT: Prolonged (mildly 462) Comparison: No Change EKG Interpretation Comments: No obvious ischemia or acute ST changes noted, reviewed by myself and Dr. Demarco, occasional PVC's noted Course - Vital Signs Last Recorded V/S: Last Vital Signs Temp 98.2 F 09/03/19 10:58 Pulse 83 09/03/19 10:58 Resp 16 09/03/19 10:58 BP 187/91 H 09/03/19 10:58 Pulse Ox 99 09/03/19 10:58 - Orders/Labs/Meds Orders: Active Orders 24 hr Category Date Time Status EKG Documentation Completion [RC] STAT Care 09/03/19 11:15 Active Peripheral IV Care [RC] . DIRECTED Care 09/03/19 11:16 Active Sodium Chloride 0.9% [Saline Flush] Med 09/03/19 11:16 Active 10 ml FLUSH ASDIRECTED PRN Peripheral IV Insertion Adult [OM.PC] Routine Oth 09/03/19 11:16 Ordered Medication Orders Sodium Chloride (Saline Flush) 10 ml FLUSH ASDIRECTED PRN PRN Reason: Keep Vein Open Last Admin: 09/03/19 12:04 Dose: 10 ml Labs: Laboratory Tests 09/03/19 09/03/19 09/03/19 Range/Units 11:33 11:50 11:50 WBC 7.72 (3.98-10.04) K/mm3 RBC 4.02 (3.98-5.22) M/mm3 Hgb 11.6 (11.2-15.7) gm/dl Hct 38.4 (34.1-44.9) % MCV 95.5 H (79.4-94.8) fl MCH 28.9 (25.6-32.2) pg MCHC 30.2 L (32.2-35.5) g/dl RDW Std Deviation 45.3 (36.4-46.3) fL Plt Count 246 (182-369) K/mm3 MPV 9.5 (9.4-12.3) fl Neutrophils % (Manual) 82 H (40-60) % Band Neutrophils % 0 (0-10) % Lymphocytes % (Manual) 14 L (20-40) % Atypical Lymphs % 0 % Monocytes % (Manual) 2 (2-10) % Eosinophils % (Manual) 2 (0.7-5.8) % Basophils % (Manual) 0 L (0.1-1.2) Platelet Estimate Adequate Plt Morphology Comment Normal Anisocytosis RBC Morph Comment Normal Sodium 145 (136-145) mEq/L Potassium 3.2 L (3.5-5.1) mEq/L Chloride 106 (98-107) mEq/L Carbon Dioxide 30 (21-32) mEq/L Anion Gap 12.2 (5-15) BUN 13 (7-18) mg/dL Creatinine 1.0 (0.55-1.02) mg/dL Est Cr Clr Drug Dosing 45.54 mL/min Estimated GFR (MDRD) 56 (>60) mL/min BUN/Creatinine Ratio 13.0 L (14-18) Glucose 155 H (80-115) mg/dL Calcium 9.4 (8.5-10.1) mg/dL Magnesium 1.7 L (1.8-2.4) mg/dl Total Bilirubin 0.5 (0.2-1.0) mg/dL AST 19 (15-37) U/L ALT 17 (14-59) U/L Alkaline Phosphatase 157 H (46-116) U/L Troponin I < 0.017 (0.00-0.056) ng/mL NT-Pro-B Natriuret Pep (0-125) pg/mL Total Protein 6.8 (6.4-8.2) g/dl Albumin 3.6 (3.4-5.0) g/dl Globulin 3.2 gm/dL Albumin/Globulin Ratio 1.1 (1-2) TSH 3rd Generation 3.456 (0.358-3.74) uIU/mL Urine Color Yellow (Yellow) Urine Appearance Clear (Clear) Urine pH 5.5 (5.0-8.0) Ur Specific Carter 1.020 (1.005-1.030) Urine Protein Negative (Negative) Urine Glucose (UA) Negative (Negative) Urine Ketones Negative (Negative) Urine Occult Blood Negative (Negative) Urine Nitrite Negative (Negative) Urine Bilirubin Negative (Negative) Urine Urobilinogen 0.2 (0.2-1.0) Ur Leukocyte Esterase Negative (Negative) Urine RBC Not seen (0-5) /hpf Urine WBC 0-5 (0-5) /hpf Ur Squamous Epith Cells 0-5 (0-5) /hpf Urine Bacteria Few (FEW) /hpf Urine Mucus Few (FEW) /hpf /16/20 Range/Units 11:50 WBC (3.98-10.04) K/mm3 RBC (3.98-5.22) M/mm3 Hgb (11.2-15.7) gm/dl Hct (34.1-44.9) % MCV (79.4-94.8) fl MCH (25.6-32.2) pg MCHC (32.2-35.5) g/dl RDW Std Deviation (36.4-46.3) fL Plt Count (182-369) K/mm3 MPV (9.4-12.3) fl Neutrophils % (Manual) (40-60) % Band Neutrophils % (0-10) % Lymphocytes % (Manual) (20-40) % Atypical Lymphs % % Monocytes % (Manual) (2-10) % Eosinophils % (Manual) (0.7-5.8) % Basophils % (Manual) (0.1-1.2) Platelet Estimate Plt Morphology Comment Anisocytosis RBC Morph Comment Sodium (136-145) mEq/L Potassium (3.5-5.1) mEq/L Chloride (98-107) mEq/L Carbon Dioxide (21-32) mEq/L Anion Gap (5-15) BUN (7-18) mg/dL Creatinine (0.55-1.02) mg/dL Est Cr Clr Drug Dosing mL/min Estimated GFR (MDRD) (>60) mL/min BUN/Creatinine Ratio (14-18) Glucose (80-115) mg/dL Calcium (8.5-10.1) mg/dL Magnesium (1.8-2.4) mg/dl Total Bilirubin (0.2-1.0) mg/dL AST (15-37) U/L ALT (14-59) U/L Alkaline Phosphatase (46-116) U/L Troponin I (0.00-0.056) ng/mL NT-Pro-B Natriuret Pep 59 (0-125) pg/mL Total Protein (6.4-8.2) g/dl Albumin (3.4-5.0) g/dl Globulin gm/dL Albumin/Globulin Ratio (1-2) TSH 3rd Generation (0.358-3.74) uIU/mL Urine Color (Yellow) Urine Appearance (Clear) Urine pH (5.0-8.0) Ur Specific [place] (1.005-1.030) Urine Protein (Negative) Urine Glucose (UA) (Negative) Urine Ketones (Negative) Urine Occult Blood (Negative) Urine Nitrite (Negative) Urine Bilirubin (Negative) Urine Urobilinogen (0.2-1.0) Ur Leukocyte Esterase (Negative) Urine RBC (0-5) /hpf Urine WBC (0-5) /hpf Ur Squamous Epith Cells (0-5) /hpf Urine Bacteria (FEW) /hpf Urine Mucus (FEW) /hpf Meds: Medications Generic Name Dose Route Start Last Admin Trade Name Freq PRN Reason Stop Dose Admin Sodium Chloride 10 ml 09/03/19 11:16 09/03/19 12:04 Saline Flush FLUSH 10 ml ASDIRECTED PRN Administration Keep Vein Open Discontinued Medications Generic Name Dose Route Start Last Admin Trade Name Vaibhav PRN Reason Stop Dose Admin Ondansetron HCl 4 mg 09/03/19 11:18 09/03/19 12:04 Zofran IVPUSH 09/03/19 11:19 4 mg ONETIME ONE Administration - Re-Assessments/Exams Free Text/Narrative Re-Assessment/Exam: 09/03/19 11:25 Patient presents to the ED for the evaluation of a couple different complaints. She does look as if she is feeling generally unwell. Have ordered some labs, EKG and a chest x-ray for further evaluation, will have an IV be placed and give her 4 mg IV Zofran to start. 09/03/19 13:15 The patient's laboratory evaluation is fairly unremarkable. Potassium is mildly low at 3.2 along with a mildly low magnesium at 1.7. Troponin is negative, BNP within normal limits, chest x-ray was also within normal limits, urine shows notes no discrete abnormalities, TSH is within normal limits. There is not a lot to suggest any obvious abnormalities at this time. Patient be reassessed at bedside, likely given potassium supplementation and discharged home with general recommendations for gastroenteritis in nature. 09/03/19 13:25 Patient states she was feeling better after the Zofran, we will supplement her low potassium at this time and have her follow back up with her regular provider for redraw of her labs and re-evaluation sometimes by the end of this week. Departure - Departure Time of Disposition: 13:28 Disposition: Home, Self-Care 01 Condition: Good Clinical Impression: Hypokalemia, Nausea - Discharge Information *PRESCRIPTION DRUG MONITORING PROGRAM REVIEWED*: No *COPY OF PRESCRIPTION DRUG MONITORING REPORT IN PATIENT SHRADDHA: No Instructions: Potassium Content of Foods Referrals: Bill Quiros MD [Primary Care Provider] - Forms: ED Department Discharge Additional Instructions: You were evaluated in the ER today regarding your all over body spasms, and feelings of being generally weak. EKG chest x-ray were within normal limits, and laboratory evaluation demonstrated that your potassium is low at 3.2, magnesium is also mildly low at 1.7. You have been given a prescription for potassium, please take 2 tabs after filling this today, and take the remaining 2 tabs tomorrow. As you stated you have some magnesium at home, please take 1 dose today, and 1 dose tomorrow as well for supplementation. You are on a fluid restricted diet, please try to keep yourself well-hydrated as much as possible. Recommend you follow-up with your regular provider sometime by the end of this week for redraw of your labs and reevaluation. Please return to the ER at any time if your symptoms change or worsen. Sepsis Event Note (ED) - Evaluation Sepsis Screening Result: No Definite Risk - Focused Exam Vital Signs: Vital Signs Temp Pulse Resp BP Pulse Ox 09/03/19 10:58 98.2 F 83 16 187/91 H 99 - My Orders Last 24 Hours: My Active Orders 09/03/19 11:15 EKG Documentation Completion [RC] STAT 09/03/19 11:16 Peripheral IV Care [RC] . DIRECTED Sodium Chloride 0.9% [Saline Flush] 10 ml FLUSH ASDIRECTED PRN Peripheral IV Insertion Adult [OM.PC] Routine - Assessment/Plan Last 24 Hours: My Active Orders 09/03/19 11:15 EKG Documentation Completion [RC] STAT 09/03/19 11:16 Peripheral IV Care [RC] . DIRECTED Sodium Chloride 0.9% [Saline Flush] 10 ml FLUSH ASDIRECTED PRN Peripheral IV Insertion Adult [OM.PC] Routine
--- NOTE | 2019-09-03 11:49 | CR ---
Chest: 2 views of the chest were obtained. Comparison: Prior chest x-ray of 08/06/19. Heart size and mediastinum are within normal limits for technique. Prior cervical spine surgery is seen. Lungs are clear with no acute parenchymal change. Scattered degenerative change is noted within the spine. Impression: 1. Nothing acute is appreciated on 2 view chest x-ray. Diagnostic code #2 This report was dictated in MDT
== END 2019-09-03 14:00 | disposition home or self-care (01) ==
LOC: JD.ED 10:49
DX: E87.6 Hypokalemia (principal); I11.0 Hypertensive heart disease with heart failure; I50.9 Heart failure, unspecified; E78.00 Pure hypercholesterolemia, unspecified; J45.909 Unspecified asthma, uncomplicated; M19.90 Unspecified osteoarthritis, unspecified site; F41.9 Anxiety disorder, unspecified; F32.9 Major depressive disorder, single episode, unspecified; E11.9 Type 2 diabetes mellitus without complications; E66.9 Obesity, unspecified; Z90.710 Acquired absence of both cervix and uterus; Z88.1 Allergy status to other antibiotic agents; Z79.4 Long term (current) use of insulin; Z88.5 Allergy status to narcotic agent; Z88.8 Allergy status to other drugs, medicaments and biological substances; Z79.899 Other long term (current) drug therapy; Z68.42 Body mass index [BMI] 45.0-49.9, adult
CPT/HCPCS: 36415; 71046; 80053; 81001; 83735; 83880; 84443; 84484; 85007; 85027; 93005; 96374; 99285; J2405; 93010; 99284

== ENCOUNTER 2019-11-21 06:48 | Day surgery (SDC) | payer MEDICARE, BC ==
[~2019-11-21 06:48] MED LIST: Lactated Ringers 1,000 ML IV SCH; Lidocaine 1%/Sod Bicarbonate in NS 8.4% 1 ML Syringe IDERM PRN; Sodium Chloride 0.9% 10 ML Syringe FLUSH PRN
[2019-11-21] MEDS ORDERED: Clindamycin Phosphate in D5W 900 MG in Premix Bag 1 BAG IV SCH ×2 (07:00)
[2019-11-21] MEDS ORDERED: Bupivacaine 0.25% 10 ML SDV ONE (07:43)
[2019-11-21] MEDS ORDERED: Lidocaine 1% 50 ML MDV ONE (07:43)
[2019-11-21] MEDS ORDERED: Clindamycin Phosphate 600 MG/4 ML SDV IM ONE (08:00)
--- NOTE | 2019-11-21 10:05 | PCM.OPNOTE ---
- General Post-Op/Procedure Note Date of Surgery/Procedure: 11/21/19 Operative Procedure(s): right carpal tunnel release Pre Op Diagnosis: right median nerve compression neuropathy Post-Op Diagnosis: Same Anesthesia Technique: Local Primary Surgeon: Andrei Carpio Marketing And Promotions Manager: Stephany Walker in mLs: 5 Complications: None Condition: Good
[2019-11-21 10:56] VITALS: BP 155/73; PULSE 73
--- NOTE | 2019-11-27 13:31 | OR ---
DATE OF OPERATION: 11/21/2019 SURGEON: Andrei Carpio MD OPERATION PERFORMED: Right carpal tunnel release. PREOPERATIVE DIAGNOSIS: Right median nerve compression neuropathy. POSTOPERATIVE DIAGNOSIS: Right median nerve compression neuropathy. ANESTHESIA: Local only. AIRCRAFT RIVETER: Stephany Walker PA-C ESTIMATED BLOOD LOSS: 5 mL. COMPLICATIONS: None. CONDITION: Stable. DESCRIPTION OF PROCEDURE: The patient was identified in the preop holding area. Proper site was marked and identified by the surgeon. The patient was taken back to the operating theater where after adequate anesthesia, the patient's right upper extremity was sterilely prepped and draped in the usual sterile fashion. OR time-out was performed. The patient did not receive antibiotics and it is not indicated for soft tissue hand procedure. At this time, the right upper extremity was exsanguinated and an Esmarch was used as a tourniquet on the forearm. At this time, using 1% lidocaine without epinephrine and 0.25% Marcaine without epinephrine, the palmar cutaneous branch of the median nerve was anesthetized and then the incisional site was anesthetized using Arevalo cardinal line and ulnar border of the fourth digit as reference. Once this had set up, an incision was made. Blunt dissection was taken down to the palmar cutaneous fascia. Palmar cutaneous fascia was incised with a Telida blade. At this time, the transverse carpal ligament was identified. A small rent was made in the transverse carpal ligament with a Telida blade under direct visualization. Resection of the transverse carpal ligament was done distally using tenotomy scissors making sure to stop short of the palmar arch. At this time, attention was turned proximally after it was found to be adequately released. Using the tenotomy scissors keeping the tips ulnar to protect the palmar cutaneous branch of the median nerve, the superficial forearm fascia as well as the transverse carpal ligament were resected proximally. It was found to be adequate release both proximally and distally. At this time, adequate saline was irrigated through the wound. 4-0 nylon sutures were used closure of the skin. The patient was placed in a sterile soft dressing and sent to PACU in stable condition. MMODAL /[id number]
== END 2019-11-21 09:18 | disposition home or self-care (01) ==
LOC: JD.SDS 06:48 → MERGE 10:30
PROVIDERS: ATTEND Orthopaedic Surgery
DX: G56.01 Carpal tunnel syndrome, right upper limb (principal); E78.5 Hyperlipidemia, unspecified; E03.9 Hypothyroidism, unspecified; I11.0 Hypertensive heart disease with heart failure; I50.9 Heart failure, unspecified; E66.01 Morbid (severe) obesity due to excess calories; F41.9 Anxiety disorder, unspecified; F33.9 Major depressive disorder, recurrent, unspecified; E78.2 Mixed hyperlipidemia; G47.00 Insomnia, unspecified; E11.40 Type 2 diabetes mellitus with diabetic neuropathy, unspecified; K21.9 Gastro-esophageal reflux disease without esophagitis; G47.33 Obstructive sleep apnea (adult) (pediatric); Z20.828 Contact with and (suspected) exposure to other viral communicable diseases; Z01.812 Encounter for preprocedural laboratory examination; Z88.0 Allergy status to penicillin; Z88.1 Allergy status to other antibiotic agents; Z88.5 Allergy status to narcotic agent; Z88.8 Allergy status to other drugs, medicaments and biological substances; Z68.42 Body mass index [BMI] 45.0-49.9, adult
CPT/HCPCS: 64721; 87641; J2001; J3490; U0002

== ENCOUNTER 2020-01-19 08:34 | Emergency (ER) | payer MEDICARE, BC ==
[2020-01-19 08:51] VITALS: BP 134/75; PULSE 98
[2020-01-19] MEDS ORDERED: Sodium Chloride 0.9% 10 ML Syringe FLUSH PRN (09:02)
[2020-01-19] MEDS ORDERED: Ondansetron 4 MG/2 ML SDV IVPUSH ONE (09:02)
[2020-01-19] MEDS ORDERED: HYDROmorphone 0.5 MG/0.5 ML Syringe IVPUSH ONE (09:03)
[2020-01-19] MEDS ORDERED: Sodium Chloride 0.9% 1,000 ML IV SCH (09:15)
--- NOTE | 2020-01-19 10:57 | EDM.PDOC ---
ED HPI GENERAL MEDICAL PROBLEM - General Chief Complaint: Lower Extremity Injury/Pain Stated Complaint: [facility] Time Seen by Provider: 01/19/20 08:41 Source of Information: Reports: Patient History Limitations: Reports: No Limitations - History of Present Illness INITIAL COMMENTS - FREE TEXT/NARRATIVE: The patient presents by [facility] for low back pain, nausea and vomiting and UTI symptoms. She said this all started a few days ago with low back pain. The pain is on the left and it radiates down her left leg. She has a history of back pain. She did nothing new to make the pain worse like fall, lift or twist. She has no fever, chills, cough, congestion, runny nose, chest pain, or shortness of breath. She has no abdominal pain but she does have some nausea and vomiting. She has a history of venous insufficiency in both legs with swelling. This was recently diagnosed in the past year. She has some pain with urination. She has no history of kidney stones. Onset: Gradual Duration: Day(s): Location: Reports: Back Quality: Reports: Sharp Severity: Moderate Improves with: Reports: None Worsens with: Reports: None Associated Symptoms: Reports: Nausea/Vomiting. Denies: Chest Pain, Cough, Fever/Chills, Headaches, Shortness of Breath Lower Back Pain Score (Numeric/FACES): 10 - Related Data Allergies Allergy/AdvReac Type Severity Reaction Status Date / Time esomeprazole magnesium Allergy Severe Edema Verified 01/19/20 08:51 [From Vimovo] esomeprazole [From Nexium] Allergy Swelling Verified 01/19/20 08:51 naproxen Allergy Edema Verified 01/19/20 08:51 sitagliptin Allergy Shortness Verified 01/19/20 08:51 of Breath amoxicillin AdvReac Dizziness Verified 01/19/20 08:51 cefdinir AdvReac Diarrhea Verified 01/19/20 08:51 clindamycin AdvReac Blurred Verified 01/19/20 08:51 Vision duloxetine AdvReac Delusions Verified 01/19/20 08:51 levofloxacin [From Levaquin] AdvReac Insomnia Verified 01/19/20 08:51 morphine AdvReac Tachycardia Verified 01/19/20 08:51 rivaroxaban [From Xarelto] AdvReac Change Verified 01/19/20 08:51 Mental Status Home Meds: Home Meds Hydrocodone/Acetaminophen [[place] 5-325] 1 tab PO Q12H PRN 05/22/15 [History] Mirtazapine [Remeron] 15 mg PO DAILY 05/22/15 [History] Venlafaxine [Effexor XR] 300 mg PO DAILY 05/22/15 [History] atorvaSTATin [Lipitor] 40 mg PO DAILY 05/22/15 [History] rOPINIRole HCl [Requip] 0.5 mg PO ASDIRECTED 07/30/16 [History] Albuterol [Ventolin HFA] 2 puff INH Q4H PRN 10/02/18 [History] Docusate Sodium [Colace] 100 mg PO DAILY PRN 10/02/18 [History] Fluticasone Propionate [Flonase] 2 spray NASBOTH DAILY 10/02/18 [History] Gabapentin [Neurontin] 800 mg PO TID 10/02/18 [History] Insulin Glargine,Hum.Rec.Anlog [Toujeo Solostar] 76 units SQ BEDTIME 10/02/18 [History] Ondansetron [Zofran] 4 mg PO Q6H PRN 10/02/18 [History] Trolamine Salicylate/Aloe Vera [Aspercreme 10% Cream] 1 dose TOP ASDIRECTED PRN 10/02/18 [History] fentaNYL [Duragesic] 25 mcg TOP Q72H 10/02/18 [History] rOPINIRole [Requip] 1 mg PO TID 10/02/18 [History] Pantoprazole Sodium [Protonix] 40 mg PO BID 08/06/19 [History] Aspirin 81 mg PO DAILY 11/20/19 [History] Doxycycline [Vibramycin] 100 mg PO BID 11/20/19 [History] Mupirocin Oint [Bactroban Oint] 1 dose TOP BID 11/20/19 [History] Potassium Chloride 20 meq PO TID 11/20/19 [History] Torsemide 10 mg PO 1200 11/20/19 [History] Torsemide 20 mg PO QAM 11/20/19 [History] Acetaminophen/HYDROcodone [[place] 325-5 MG] 1 tab PO Q6H PRN #20 tablet 11/21/19 [Rx] carvediloL [Coreg] 25 mg PO BID 11/21/19 [History] Cyclobenzaprine [Flexeril] 10 mg PO TID PRN #20 tab 01/19/20 [Rx] Hydrocodone/Acetaminophen [Hydrocodone-Acetamin 5-325 mg] 1 - 2 each PO Q6HR PRN #20 tablet 01/19/20 [Rx] Ondansetron [Zofran ODT] 4 mg PO Q6H PRN #20 tab.dis 01/19/20 [Rx] Past Medical History HEENT History: Reports: Impaired Vision, Other (See Below) Other HEENT History: sinus polyp, disease of lips, visual loss, wears glasses Cardiovascular History: Reports: Heart Failure, High Cholesterol, Hypertension, SC, Other (See Below) Other Cardiovascular History: venous stasis Respiratory History: Reports: Asthma, Bronchitis, Recurrent, Pneumonia, Recurrent, Sleep Apnea Gastrointestinal History: Reports: Chronic Constipation, Chronic Diarrhea, GERD Genitourinary History: Reports: Other (See Below), UTI, Recurrent Other Genitourinary History: bladder cancer, cervical mucous polyp, hematuria, incontinence, bladder surgery [employer] History: Reports: Other (See Below) Other [employer] History: dysmenorrhea, vaginitis, breast biopsy Musculoskeletal History: Reports: Other (See Below), Osteoarthritis Other Musculoskeletal History: tarsal tunnel syndrome, left knee pain, patellofemoral syndrome, joint pain, myalgia, myositis Neurological History: Reports: Migraines, Neuropathy, Diabetic, Other (See Below) Other Neuro History: cervical herniated nucleus pulposus, meningioma Psychiatric History: Reports: Anxiety, Depression, Other (See Below) Other Psychiatric History: insomnia, pain management Endocrine/Metabolic History: Reports: Diabetes, Type II, Obesity/BMI 30+ Hematologic History: Reports: Anemia Immunologic History: Reports: None Oncologic (Cancer) History: Reports: Bladder Dermatologic History: Reports: Other (See Below) Other Dermatologic History: SQ skin infection, hair follicle infection, skin hypertrophy, viral warts - Infectious Disease History Infectious Disease History: Reports: Chicken Pox, Measles, Mumps - Past Surgical History HEENT Surgical History: Reports: Adenoidectomy, Naso-Sinus Surgery, Tonsillectomy Cardiovascular Surgical History: Reports: None Respiratory Surgical History: Reports: None GI Surgical History: Reports: None Endocrine Surgical History: Reports: None Neurological Surgical History: Reports: Other (See Below), Spinal Fusion Oncologic Surgical History: Reports: None Dermatological Surgical History: Reports: None Social & Family History - Family History Family Medical History: Noncontributory - Tobacco Use Tobacco Use Status *Q: Never Tobacco User - Caffeine Use Caffeine Use: Reports: Coffee Review of Systems - Review of Systems Review Of Systems: See Below Constitutional: Reports: No Symptoms Eyes: Reports: No Symptoms Ears: Reports: No Symptoms Nose: Reports: No Symptoms Mouth/Throat: Reports: No Symptoms Respiratory: Reports: No Symptoms Cardiovascular: Reports: No Symptoms GI/Abdominal: Reports: Nausea, Vomiting. Denies: Abdominal Pain Genitourinary: Reports: No Symptoms Musculoskeletal: Reports: Back Pain ED EXAM, GENERAL - Physical Exam Exam: See Below Exam Limited By: No Limitations General Appearance: Alert, No Apparent Distress Ears: Normal External Exam Nose: Normal Inspection Head: Atraumatic, Normocephalic Neck: Normal Inspection Respiratory/Chest: No Respiratory Distress, Lungs Clear, Normal Breath Sounds Cardiovascular: Regular Rate, Rhythm, No Edema, No Murmur GI/Abdominal: Soft, Non-Tender, No Organomegaly, No Mass Back Exam: Other (Pain upon palpation to the left lower back) Extremities: Normal Inspection Neurological: Alert, Oriented, No Motor/Sensory Deficits Course - Vital Signs Last Recorded V/S: Last Vital Signs Temp 98.9 F 01/19/20 08:44 Pulse 98 01/19/20 08:44 Resp 20 01/19/20 08:44 BP 134/75 01/19/20 08:44 Pulse Ox 97 01/19/20 08:44 - Orders/Labs/Meds Orders: Active Orders 24 hr Category Date Time Status Cardiac Monitoring [RC] . DIRECTED Care 01/19/20 09:02 Active Peripheral IV Care [RC] . DIRECTED Care 01/19/20 09:02 Active Lumbar Spine 2 or 3V [CR] Stat Exams 01/19/20 09:03 Taken Cyclobenzaprine [Flexeril] Med 01/19/20 11:01 Once 10 mg PO ONETIME ONE Sodium Chloride 0.9% [Normal Saline] 1,000 ml Med 01/19/20 09:15 Active IV .BOLUS Sodium Chloride 0.9% [Saline Flush] Med 01/19/20 09:02 Active 10 ml FLUSH ASDIRECTED PRN ED Antiemetic Medication Reflex [OM.PC] Stat Oth 01/19/20 09:02 Ordered Peripheral IV Insertion Adult [OM.PC] Stat Ot 01/19/20 09:02 Ordered Medication Orders Sodium Chloride (Normal Saline) 1,000 mls @ 1,000 mls/hr IV .BOLUS MOHSEN Last Admin: 01/19/20 09:55 Dose: 1,000 mls/hr Documented by: FRANKO Sodium Chloride (Saline Flush) 10 ml FLUSH ASDIRECTED PRN PRN Reason: Keep Vein Open Last Admin: 01/19/20 09:56 Dose: 10 ml Documented by: FRANKO Labs: Laboratory Tests 01/19/20 01/19/20 01/19/20 Range/Units 09:50 10:05 10:05 WBC 15.14 H (3.98-10.04) K/mm3 RBC 3.80 L (3.98-5.22) M/mm3 Hgb 10.6 L (11.2-15.7) gm/dl Hct 35.9 (34.1-44.9) % MCV 94.5 (79.4-94.8) fl MCH 27.9 (25.6-32.2) pg MCHC 29.5 L (32.2-35.5) g/dl RDW Std Deviation 46.1 (36.4-46.3) fL Plt Count 237 (182-369) K/mm3 MPV 9.7 (9.4-12.3) fl Neut % (Auto) 91.2 H (34.0-71.1) % Lymph % (Auto) 4.0 L (19.3-51.7) % Jackson % (Auto) 4.0 L (4.7-12.5) % Eos % (Auto) 0.5 L (0.7-5.8) Baso % (Auto) 0.1 (0.1-1.2) % Neut # (Auto) 13.82 H (1.56-6.13) K/mm3 Lymph # (Auto) 0.60 L (1.18-3.74) K/mm3 Jackson # (Auto) 0.60 H (0.24-0.36) K/mm3 Eos # (Auto) 0.08 (0.04-0.36) K/mm3 Baso # (Auto) 0.01 (0.01-0.08) K/mm3 Manual Slide Review Abnormal smear Sodium 144 (136-145) mEq/L Potassium 3.2 L (3.5-5.1) mEq/L Chloride 104 (98-107) mEq/L Carbon Dioxide 30 (21-32) mEq/L Anion Gap 13.2 (5-15) BUN 11 (7-18) mg/dL Creatinine 1.1 H (0.55-1.02) mg/dL Est Cr Clr Drug Dosing TNP Estimated GFR (MDRD) 50 (>60) mL/min BUN/Creatinine Ratio 10.0 L (14-18) Glucose 96 (80-115) mg/dL POC Glucose (80-115) mg/dL Calcium 9.3 (8.5-10.1) mg/dL Total Bilirubin 0.6 (0.2-1.0) mg/dL AST 25 (15-37) U/L ALT 20 (14-59) U/L Alkaline Phosphatase 137 H (46-116) U/L Total Protein 6.3 L (6.4-8.2) g/dl Albumin 3.2 L (3.4-5.0) g/dl Globulin 3.1 gm/dL Albumin/Globulin Ratio 1.0 (1-2) Urine Color Yellow (Yellow) Urine Appearance Clear (Clear) Urine pH 8.5 H (5.0-8.0) Ur Specific Rupert 1.015 (1.005-1.030) Urine Protein 2+ H (Negative) Urine Glucose (UA) Negative (Negative) Urine Ketones Negative (Negative) Urine Occult Blood Negative (Negative) Urine Nitrite Negative (Negative) Urine Bilirubin Negative (Negative) Urine Urobilinogen 0.2 (0.2-1.0) Ur Leukocyte Esterase Negative (Negative) Urine RBC Not seen (0-5) /hpf Urine WBC 0-5 (0-5) /hpf Ur Squamous Epith Cells 0-5 (0-5) /hpf Urine Bacteria Rare (FEW) /hpf Urine Mucus Rare (FEW) /hpf 01/19/20 01/19/20 Range/Units 10:25 11:37 WBC (3.98-10.04) K/mm3 RBC (3.98-5.22) M/mm3 Hgb (11.2-15.7) gm/dl Hct (34.1-44.9) % MCV (79.4-94.8) fl MCH (25.6-32.2) pg MCHC (32.2-35.5) g/dl RDW Std Deviation (36.4-46.3) fL Plt Count (182-369) K/mm3 MPV (9.4-12.3) fl Neut % (Auto) (34.0-71.1) % Lymph % (Auto) (19.3-51.7) % Jackson % (Auto) (4.7-12.5) % Eos % (Auto) (0.7-5.8) Baso % (Auto) (0.1-1.2) % Neut # (Auto) (1.56-6.13) K/mm3 Lymph # (Auto) (1.18-3.74) K/mm3 Jackson # (Auto) (0.24-0.36) K/mm3 Eos # (Auto) (0.04-0.36) K/mm3 Baso # (Auto) (0.01-0.08) K/mm3 Manual Slide Review Sodium (136-145) mEq/L Potassium (3.5-5.1) mEq/L Chloride (98-107) mEq/L Carbon Dioxide (21-32) mEq/L Anion Gap (5-15) BUN (7-18) mg/dL Creatinine (0.55-1.02) mg/dL Est Cr Clr Drug Dosing Estimated GFR (MDRD) (>60) mL/min BUN/Creatinine Ratio (14-18) Glucose (80-115) mg/dL POC Glucose 50 L 72 L (80-115) mg/dL Calcium (8.5-10.1) mg/dL Total Bilirubin (0.2-1.0) mg/dL AST (15-37) U/L ALT (14-59) U/L Alkaline Phosphatase (46-116) U/L Total Protein (6.4-8.2) g/dl Albumin (3.4-5.0) g/dl Globulin gm/dL Albumin/Globulin Ratio (1-2) Urine Color (Yellow) Urine Appearance (Clear) Urine pH (5.0-8.0) Ur Specific Rupert (1.005-1.030) Urine Protein (Negative) Urine Glucose (UA) (Negative) Urine Ketones (Negative) Urine Occult Blood (Negative) Urine Nitrite (Negative) Urine Bilirubin (Negative) Urine Urobilinogen (0.2-1.0) Ur Leukocyte Esterase (Negative) Urine RBC (0-5) /hpf Urine WBC (0-5) /hpf Ur Squamous Epith Cells (0-5) /hpf Urine Bacteria (FEW) /hpf Urine Mucus (FEW) /hpf Meds: Medications Generic Name Dose Route Start Last Admin Trade Name Freq PRN Reason Stop Dose Admin Sodium Chloride 1,000 mls @ 1,000 mls/hr 01/19/20 09:15 01/19/20 09:55 Normal Saline IV 1,000 mls/hr .BOLUS MOHSEN Administration Sodium Chloride 10 ml 01/19/20 09:02 01/19/20 09:56 Saline Flush FLUSH 10 ml ASDIRECTED PRN Administration Keep Vein Open Discontinued Medications Generic Name Dose Route Start Last Admin Trade Name Freq PRN Reason Stop Dose Admin Hydromorphone HCl 0.5 mg 01/19/20 09:03 01/19/20 09:55 Dilaudid IVPUSH 01/19/20 09:04 0.5 mg ONETIME ONE Administration Ondansetron HCl 4 mg 01/19/20 09:02 01/19/20 09:56 Zofran IVPUSH 01/19/20 09:03 4 mg ONETIME ONE Administration - Re-Assessments/Exams Free Text/Narrative Re-Assessment/Exam: 01/19/20 10:55 I ordered an IV NS 1L bolus, zofran 4mg IV, dilaudid 1mg IV, labs, UA and an x- ray of her lumbar spine. The x-ray shows moderate grade degenerative disc and degenerative joint disease with grade 1 anteriolisthesis of L4 on L5. Her WBC is elevated at 15.14. Her Hgb is low at 10.6. Her K is low at 3.2. Her bedside glucose was low at 50 and her glucose was 72. I ordered her some juice. Her alk phos was elevated at 137. 01/19/20 11:01 She feels a little better but when she moves she still has low back pain. I will give her a dose of flexeril here and a prescription for more including a zofran and hydrocodone prescription. Departure - Departure Time of Disposition: 11:05 Disposition: Home, Self-Care 01 Condition: Good Clinical Impression: Low back pain with sciatica Qualifiers: Chronicity: acute Back pain laterality: left Sciatica laterality: sciatica of left side Qualified Code(s): M54.42 - Lumbago with sciatica, left side - Discharge Information *PRESCRIPTION DRUG MONITORING PROGRAM REVIEWED*: Not Applicable *COPY OF PRESCRIPTION DRUG MONITORING REPORT IN PATIENT SHRADDHA: Not Applicable Prescriptions: Cyclobenzaprine [Flexeril] 10 mg PO TID PRN #20 tab PRN Reason: Pain Hydrocodone/Acetaminophen [Hydrocodone-Acetamin 5-325 mg] 1 - 2 each PO Q6HR PRN #20 tablet PRN Reason: Pain Ondansetron [Zofran ODT] 4 mg PO Q6H PRN #20 tab.dis PRN Reason: Nausea\vomiting Referrals: Bill Quiros MD [Primary Care Provider] - 1 Week Forms: ED Department Discharge Additional Instructions: Drink plenty of fluids. Take zofran every 6 hours as needed for nausea and vomiting. Take tylenol or motrin for your back pain. If that does not help you can take the flexeril every 8 hours. You may also try the hydrocodone every 6 hours. Please return if you are worse. Sepsis Event Note (ED) - Evaluation Sepsis Screening Result: No Definite Risk - Focused Exam Vital Signs: Vital Signs Temp Pulse Resp BP Pulse Ox 01/19/20 08:44 98.9 F 98 20 134/75 97 - My Orders Last 24 Hours: My Active Orders 01/19/20 09:02 Cardiac Monitoring [RC] . DIRECTED Peripheral IV Care [RC] . DIRECTED Sodium Chloride 0.9% [Saline Flush] 10 ml FLUSH ASDIRECTED PRN ED Antiemetic Medication Reflex [OM.PC] Stat Peripheral IV Insertion Adult [OM.PC] Stat 01/19/20 09:03 Lumbar Spine 2 or 3V [CR] Stat 01/19/20 09:15 Sodium Chloride 0.9% [Normal Saline] 1,000 ml IV .BOLUS 01/19/20 11:01 Cyclobenzaprine [Flexeril] 10 mg PO ONETIME ONE - Assessment/Plan Last 24 Hours: My Active Orders 01/19/20 09:02 Cardiac Monitoring [RC] . DIRECTED Peripheral IV Care [RC] . DIRECTED Sodium Chloride 0.9% [Saline Flush] 10 ml FLUSH ASDIRECTED PRN ED Antiemetic Medication Reflex [OM.PC] Stat Peripheral IV Insertion Adult [OM.PC] Stat 01/19/20 09:03 Lumbar Spine 2 or 3V [CR] Stat 01/19/20 09:15 Sodium Chloride 0.9% [Normal Saline] 1,000 ml IV .BOLUS 01/19/20 11:01 Cyclobenzaprine [Flexeril] 10 mg PO ONETIME ONE
[2020-01-19] MEDS ORDERED: Cyclobenzaprine 10 MG Tab PO ONE (11:01)
--- NOTE | 2020-01-20 10:00 | CR ---
PROCEDURE INFORMATION: Exam: XR Lumbosacral Spine, 2 or 3 Views Exam date and time: 01/19/2020 9:10 AM Age: 64 years old Clinical indication: Other: Left sided low back pain radiating down her leg. TECHNIQUE: Imaging protocol: XR of the lumbosacral spine, 2 or 3 views. COMPARISON: No relevant prior studies available. FINDINGS: Bones/joints: A grade 1 anterolisthesis of L4 on L5 is present approximately 10 mm. The remainder of the alignment is well maintained. Mild disc space narrowing is present throughout the lumbar spine. This is most advanced at L4-L5 and L5-S1. Moderate facet degenerative changes are present. Soft tissues: Unremarkable. IMPRESSION: 1. Moderate grade degenerative disc and degenerative joint disease with grade 1 anterolisthesis of L4 on L5. Thank you for allowing us to participate in the care of your patient. Dictated and Authenticated by: Boris Tapia MD 01/19/2020 10:30 AM Central Time ([place] & [place]) [facility]
== END 2020-01-19 12:16 | disposition home or self-care (01) ==
LOC: JD.ED 08:34
DX: M54.42 Lumbago with sciatica, left side (principal); R79.89 Other specified abnormal findings of blood chemistry; I11.0 Hypertensive heart disease with heart failure; I50.9 Heart failure, unspecified; I25.2 Old myocardial infarction; J45.909 Unspecified asthma, uncomplicated; K21.9 Gastro-esophageal reflux disease without esophagitis; E11.40 Type 2 diabetes mellitus with diabetic neuropathy, unspecified; F41.9 Anxiety disorder, unspecified; F32.9 Major depressive disorder, single episode, unspecified; E66.9 Obesity, unspecified; Z88.1 Allergy status to other antibiotic agents; Z88.5 Allergy status to narcotic agent; Z88.8 Allergy status to other drugs, medicaments and biological substances; Z79.4 Long term (current) use of insulin; Z79.82 Long term (current) use of aspirin; Z79.899 Other long term (current) drug therapy; Z90.49 Acquired absence of other specified parts of digestive tract
CPT/HCPCS: 36415; 72100; 80053; 81001; 82962; 85025; 96374; 96375; 99284; A9270; J1170; J2405; J7030

== ENCOUNTER 2020-01-31 05:37 | Inpatient (IN) | payer MEDICARE, BC ==
[2020-01-31] MEDS ORDERED: HYDROmorphone 0.5 MG/0.5 ML Syringe IVPUSH ONE (06:12)
[2020-01-31] MEDS ORDERED: Ondansetron 4 MG/2 ML SDV IVPUSH ONE (06:12)
--- NOTE | 2020-01-31 06:16 | EDM.PDOC ---
<DianaFranc - Last Filed: 01/31/20 07:56> ED HPI GENERAL MEDICAL PROBLEM - General Chief Complaint: Fever Stated Complaint: [facility] Time Seen by Provider: 01/31/20 05:52 Source of Information: Reports: Patient History Limitations: Reports: No Limitations - History of Present Illness INITIAL COMMENTS - FREE TEXT/NARRATIVE: Ms. Ross is a pleasant 64-year-old woman who is now brought to the ED by EMS stating that she had some chills when she went to bed around 22:00 last night, but that she slept well. When she woke up this morning, however, she states that her cheeks felt warm, and she had lower back pain. She checked her temperature, finding that she had a fever. She acknowledges that she has chronic lower back pain, but that her pain at this morning was worse than usual. She also reports having rhinorrhea this morning. She reports having some dyspnea, both at rest and with exertion. No recent cough. No urinary symptoms. She did not take any [id number] or home remedies prior to coming to the ED. The patient states that she checks her blood glucose twice a day, with a normal Accu-Chek in the morning between 79 and 128, and a normal p.m. Accu-Chek in the 130s. She did not check her blood glucose at this morning. ED, the patient's initial BP is found to be elevated at 168/71, with tachypnea of 25 rpm, a fever of 101.6, saturating 94% on room air. Prior to last night, the patient denies having a recent fever, chills, sore throat, ear pain, nasal or sinus congestion, cough, dyspnea, chest pain, palpitations, nausea, vomiting, constipation, diarrhea, abdominal pain, urinary symptoms, recent weight gain or weight loss, recent bloody bowel movements or black bowel movements, recent joint aches, headaches, or rashes. The patient's PCP is Dr. Bill Quiros. Her Supervisor Inspection is Dr. Franc Gómez. She did receive an influenza vaccine this season. Back Pain Score (Numeric/FACES): 10 - Related Data Allergies Allergy/AdvReac Type Severity Reaction Status Date / Time esomeprazole magnesium Allergy Severe Edema Verified 01/31/20 05:40 [From Vimovo] esomeprazole [From Nexium] Allergy Swelling Verified 01/31/20 05:40 naproxen Allergy Edema Verified 01/31/20 05:40 sitagliptin Allergy Shortness Verified 01/31/20 05:40 of Breath amoxicillin AdvReac Dizziness Verified 01/31/20 05:40 cefdinir AdvReac Diarrhea Verified 01/31/20 05:40 clindamycin AdvReac Blurred Verified 01/31/20 05:40 Vision duloxetine AdvReac Delusions Verified 01/31/20 05:40 levofloxacin [From Levaquin] AdvReac Insomnia Verified 01/31/20 05:40 morphine AdvReac Tachycardia Verified 01/31/20 05:40 rivaroxaban [From Xarelto] AdvReac Change Verified 01/31/20 05:40 Mental Status Home Meds: Home Meds Hydrocodone/Acetaminophen [[place] 5-325] 1 tab PO Q12H PRN 05/22/15 [History] Mirtazapine [Remeron] 15 mg PO DAILY 05/22/15 [History] Venlafaxine [Effexor XR] 300 mg PO DAILY 05/22/15 [History] atorvaSTATin [Lipitor] 40 mg PO DAILY 05/22/15 [History] rOPINIRole HCl [Requip] 0.5 mg PO ASDIRECTED 07/30/16 [History] Albuterol [Ventolin HFA] 2 puff INH Q4H PRN 10/02/18 [History] Docusate Sodium [Colace] 100 mg PO DAILY PRN 10/02/18 [History] Fluticasone Propionate [Flonase] 2 spray NASBOTH DAILY 10/02/18 [History] Gabapentin [Neurontin] 800 mg PO TID 10/02/18 [History] Insulin Glargine,Hum.Rec.Anlog [Toujeo Solostar] 76 units SQ BEDTIME 10/02/18 [History] Ondansetron [Zofran] 4 mg PO Q6H PRN 10/02/18 [History] Trolamine Salicylate/Aloe Vera [Aspercreme 10% Cream] 1 dose TOP ASDIRECTED PRN 10/02/18 [History] fentaNYL [Duragesic] 25 mcg TOP Q72H 10/02/18 [History] rOPINIRole [Requip] 1 mg PO TID 10/02/18 [History] Pantoprazole Sodium [Protonix] 40 mg PO BID 08/06/19 [History] Aspirin 81 mg PO DAILY 11/20/19 [History] Doxycycline [Vibramycin] 100 mg PO BID 11/20/19 [History] Mupirocin Oint [Bactroban Oint] 1 dose TOP BID 11/20/19 [History] Potassium Chloride 20 meq PO TID 11/20/19 [History] Torsemide 10 mg PO 1200 11/20/19 [History] Torsemide 20 mg PO QAM 11/20/19 [History] Acetaminophen/HYDROcodone [[place] 325-5 MG] 1 tab PO Q6H PRN #20 tablet 11/21/19 [Rx] carvediloL [Coreg] 25 mg PO BID 11/21/19 [History] Cyclobenzaprine [Flexeril] 10 mg PO TID PRN #20 tab 01/19/20 [Rx] Hydrocodone/Acetaminophen [Hydrocodone-Acetamin 5-325 mg] 1 - 2 each PO Q6HR PRN #20 tablet 01/19/20 [Rx] Ondansetron [Zofran ODT] 4 mg PO Q6H PRN #20 tab.dis 01/19/20 [Rx] Past Medical History HEENT History: Reports: Impaired Vision, Other (See Below) Other HEENT History: sinus polyp, disease of lips, visual loss, wears glasses Cardiovascular History: Reports: Heart Failure, High Cholesterol, Hypertension, ME, Other (See Below) Other Cardiovascular History: venous stasis Respiratory History: Reports: Asthma, Bronchitis, Recurrent, Pneumonia, Recurrent, Sleep Apnea Gastrointestinal History: Reports: Chronic Constipation, Chronic Diarrhea, GERD Genitourinary History: Reports: Other (See Below), UTI, Recurrent Other Genitourinary History: bladder cancer, cervical mucous polyp, hematuria, incontinence, bladder surgery INDEPENDENT JEWELER History: Reports: Other (See Below) Other INDEPENDENT JEWELER History: dysmenorrhea, vaginitis, breast biopsy Musculoskeletal History: Reports: Other (See Below), Osteoarthritis Other Musculoskeletal History: tarsal tunnel syndrome, left knee pain, patellofemoral syndrome, joint pain, myalgia, myositis Neurological History: Reports: Migraines, Neuropathy, Diabetic, Other (See Below) Other Neuro History: cervical herniated nucleus pulposus, meningioma Psychiatric History: Reports: Anxiety, Depression, Other (See Below) Other Psychiatric History: insomnia, pain management Endocrine/Metabolic History: Reports: Diabetes, Type II, Obesity/BMI 30+ Hematologic History: Reports: Anemia Immunologic History: Reports: None Oncologic (Cancer) History: Reports: Bladder Dermatologic History: Reports: Other (See Below) Other Dermatologic History: SQ skin infection, hair follicle infection, skin hypertrophy, viral warts - Infectious Disease History Infectious Disease History: Reports: Chicken Pox, Measles, Mumps - Past Surgical History HEENT Surgical History: Reports: Adenoidectomy, Naso-Sinus Surgery, Tonsillectomy Cardiovascular Surgical History: Reports: None Respiratory Surgical History: Reports: None GI Surgical History: Reports: None Endocrine Surgical History: Reports: None Neurological Surgical History: Reports: Other (See Below), Spinal Fusion Oncologic Surgical History: Reports: None Dermatological Surgical History: Reports: None Social & Family History - Tobacco Use Tobacco Use Status *Q: Never Tobacco User - Caffeine Use Caffeine Use: Reports: Coffee - Alcohol Use Alcohol Use History: No - Recreational Drug Use Recreational Drug Use: No - Living Situation & Occupation Living situation: Reports: , with Family (Mother) Occupation: Retired ED ROS GENERAL - Review of Systems Review Of Systems: Comprehensive ROS is negative, except as noted in HPI. ED EXAM, GENERAL - Physical Exam Exam: See Below Exam Limited By: No Limitations General Appearance: Alert, WD/WN, No Apparent Distress Eye Exam: Bilateral Eye: EOMI, Normal Inspection Ears: Normal External Exam, Hearing Grossly Normal Nose: Normal Inspection Throat/Mouth: Normal Inspection, Normal Lips, Normal Voice, No Airway Compromise Head: Atraumatic, Normocephalic Neck: Normal Inspection, Full Range of Motion Respiratory/Chest: No Respiratory Distress, Lungs Clear, Normal Breath Sounds, No Accessory Muscle Use Cardiovascular: Normal Peripheral Pulses, Regular Rate, Rhythm, No Gallop, No JVD, No Murmur, No Rub Peripheral Pulses: 3+: Radial (L), Radial (R) GI/Abdominal: Normal Bowel Sounds, Soft, Non-Tender, No Organomegaly, No Distention, No Abnormal Bruit, No Mass Back Exam: Normal Inspection, Full Range of Motion, NT Extremities: Normal Range of Motion, Normal Capillary Refill, Other (Mild orquidea ateral pretibial brawny edema) Neurological: Alert, Oriented, Normal Cognition, No Motor/Sensory Deficits Psychiatric: Normal Affect Skin Exam: Warm, Dry, Intact, Normal Color, No Rash #1 Interpretation EKG Date: 01/31/20 Time: 07:21 Rhythm: NSR Rate (Beats/Min): 79 [place]: Normal P-Wave: Present QRS: Normal ST-T: Normal QT: Normal Comparison: No Change (09/03/2019) Course - Re-Assessments/Exams Free Text/Narrative Re-Assessment/Exam: 01/31/20 06:13 As above, the patient had some chills last night, but was able to sleep well, but then woke up this morning with a fever and lower back pain - chronic, but worse than her usual, along with some rhinorrhea and dyspnea. Her physical exam is grossly unremarkable. I have ordered a work-up that includes blood work, 2 sets of blood cultures, a urinalysis, an influenza swab, a swab for the SARS-CoV-2 virus, a chest x-ray, and an ECG. In the meantime, the patient will be given IV Dilaudid and IV Zofran. Because of her history of CHF, and because her BP is elevated and she is not tachycardic, I am withholding IV fluid at this time. 01/31/20 07:[address] Palacios, and care of the patient turned over to him at this time, for change of shift. Departure - Departure Disposition: Admitted As Inpatient 67 Clinical Impression: Pneumonia Qualifiers: Pneumonia type: due to unspecified organism Laterality: bilateral Lung location: lower lobe of lung Qualified Code(s): J18.9 - Pneumonia, unspecified organism Sepsis Qualifiers: Sepsis type: sepsis due to unspecified organism Sepsis acute organ dysfunction status: unspecified Qualified Code(s): A41.9 - Sepsis, unspecified organism - Discharge Information Referrals: PCP,None [Primary Care Provider] - Forms: ED Department Discharge Sepsis Event Note (ED) - Evaluation Sepsis Screening Result: Possible Sepsis Risk <Mynor Palacios - Last Filed: 01/31/20 09:21> Course - Vital Signs Last Recorded V/S: Last Vital Signs Temp 101.7 F H 01/31/20 05:41 Pulse 80 01/31/20 05:41 Resp 25 H 01/31/20 05:41 BP 168/71 H 01/31/20 05:41 Pulse Ox 94 L 01/31/20 05:41 - Orders/Labs/Meds Orders: Active Orders 24 hr Category Date Time Status EKG Documentation Completion [RC] STAT Care 01/31/20 06:09 Active CORONAVIRUS COVID-19 PCR PHL Stat Lab 01/31/20 06:45 Ordered CULTURE BLOOD [BC] Stat Lab 01/31/20 06:45 Received CULTURE BLOOD [BC] Stat Lab 01/31/20 06:50 Received Azithromycin [Zithromax] 500 mg Med 01/31/20 09:01 Active Sodium Chloride 0.9% [Normal Saline (AdvBag)] 250 ml IV ONETIME cefTRIAXone [Rocephin] 2 gm Med 01/31/20 09:02 Active Sodium Chloride 0.9% [Normal Saline] 100 ml IV ONETIME Blood Culture x2 Reflex Set [OM.PC] Stat Oth 01/31/20 06:10 Ordered Isolation [COMM] Routine Oth 01/31/20 06:10 Ordered Medication Orders Azithromycin 500 mg/ Sodium (Chloride) 250 mls @ 250 mls/hr IV ONETIME ONE Stop: 01/31/20 10:00 Ceftriaxone Sodium 2 gm/ (Sodium Chloride) 100 mls @ 200 mls/hr IV ONETIME ONE Stop: 01/31/20 09:31 Labs: Laboratory Tests 01/31/20 01/31/20 01/31/20 Range/Units 06:43 06:45 06:45 WBC 22.41 H (3.98-10.04) K/mm3 RBC 3.67 L (3.98-5.22) M/mm3 Hgb 10.4 L (11.2-15.7) gm/dl Hct 35.1 (34.1-44.9) % MCV 95.6 H (79.4-94.8) fl MCH 28.3 (25.6-32.2) pg MCHC 29.6 L (32.2-35.5) g/dl RDW Std Deviation 47.3 H (36.4-46.3) fL Plt Count 234 (182-369) K/mm3 MPV 10.2 (9.4-12.3) fl Neutrophils % (Manual) 89 H (40-60) % Band Neutrophils % 0 (0-10) % Lymphocytes % (Manual) 5 L (20-40) % Atypical Lymphs % 0 % Monocytes % (Manual) 5 (2-10) % Eosinophils % (Manual) 1 (0.7-5.8) % Basophils % (Manual) 0 L (0.1-1.2) Toxic Granulation Few Platelet Estimate Adequate Polychromasia 1+ slight Hypochromasia 1+ slight Anisocytosis 1+ sligh Ovalocytes 1+ slight RBC Morph Comment Normal D-Dimer, Quantitative (0.19-0.50) mg/L Sodium 143 (136-145) mEq/L Potassium 3.5 (3.5-5.1) mEq/L Chloride 105 (98-107) mEq/L Carbon Dioxide 31 (21-32) mEq/L Anion Gap 10.5 (5-15) BUN 14 (7-18) mg/dL Creatinine 0.9 (0.55-1.02) mg/dL Est Cr Clr Drug Dosing TNP Estimated GFR (MDRD) > 60 (>60) mL/min BUN/Creatinine Ratio 15.6 (14-18) Glucose 63 L (80-115) mg/dL Lactic Acid (0.4-2.0) mmol/L Calcium 9.1 (8.5-10.1) mg/dL Magnesium 2.4 (1.8-2.4) mg/dl Total Bilirubin 0.5 (0.2-1.0) mg/dL AST 170 H (15-37) U/L ALT 107 H (14-59) U/L Alkaline Phosphatase 146 H (46-116) U/L Troponin I < 0.017 (0.00-0.056) ng/mL C-Reactive Protein 5.0 H* (<1.0) mg/dL NT-Pro-B Natriuret Pep (0-125) pg/mL Total Protein 6.6 (6.4-8.2) g/dl Albumin 3.4 (3.4-5.0) g/dl Globulin 3.2 gm/dL Albumin/Globulin Ratio 1.1 (1-2) Urine Color (Yellow) Urine Appearance (Clear) Urine pH (5.0-8.0) Ur Specific [place] (1.005-1.030) Urine Protein (Negative) Urine Glucose (UA) (Negative) Urine Ketones (Negative) Urine Occult Blood (Negative) Urine Nitrite (Negative) Urine Bilirubin (Negative) Urine Urobilinogen (0.2-1.0) Ur Leukocyte Esterase (Negative) Urine RBC (0-5) /hpf Urine WBC (0-5) /hpf Ur Squamous Epith Cells (0-5) /hpf Urine Bacteria (FEW) /hpf Urine Mucus (FEW) /hpf Urine Yeast (NOT SEEN) SARS-CoV-2 RNA (AGUSTÍN) Negative (NEGATIVE) 01/31/20 01/31/20 01/31/20 Range/Units 06:45 06:45 06:45 WBC (3.98-10.04) K/mm3 RBC (3.98-5.22) M/mm3 Hgb (11.2-15.7) gm/dl Hct (34.1-44.9) % MCV (79.4-94.8) fl MCH (25.6-32.2) pg MCHC (32.2-35.5) g/dl RDW Std Deviation (36.4-46.3) fL Plt Count (182-369) K/mm3 MPV (9.4-12.3) fl Neutrophils % (Manual) (40-60) % Band Neutrophils % (0-10) % Lymphocytes % (Manual) (20-40) % Atypical Lymphs % % Monocytes % (Manual) (2-10) % Eosinophils % (Manual) (0.7-5.8) % Basophils % (Manual) (0.1-1.2) Toxic Granulation Platelet Estimate Polychromasia Hypochromasia Anisocytosis Ovalocytes RBC Morph Comment D-Dimer, Quantitative 1.51 H (0.19-0.50) mg/L Sodium (136-145) mEq/L Potassium (3.5-5.1) mEq/L Chloride (98-107) mEq/L Carbon Dioxide (21-32) mEq/L Anion Gap (5-15) BUN (7-18) mg/dL Creatinine (0.55-1.02) mg/dL Est Cr Clr Drug Dosing Estimated GFR (MDRD) (>60) mL/min BUN/Creatinine Ratio (14-18) Glucose (80-115) mg/dL Lactic Acid 1.0 (0.4-2.0) mmol/L Calcium (8.5-10.1) mg/dL Magnesium (1.8-2.4) mg/dl Total Bilirubin (0.2-1.0) mg/dL AST (15-37) U/L ALT (14-59) U/L Alkaline Phosphatase (46-116) U/L Troponin I (0.00-0.056) ng/mL C-Reactive Protein (<1.0) mg/dL NT-Pro-B Natriuret Pep 460 H (0-125) pg/mL Total Protein (6.4-8.2) g/dl Albumin (3.4-5.0) g/dl Globulin gm/dL Albumin/Globulin Ratio (1-2) Urine Color (Yellow) Urine Appearance (Clear) Urine pH (5.0-8.0) Ur Specific [place] (1.005-1.030) Urine Protein (Negative) Urine Glucose (UA) (Negative) Urine Ketones (Negative) Urine Occult Blood (Negative) Urine Nitrite (Negative) Urine Bilirubin (Negative) Urine Urobilinogen (0.2-1.0) Ur Leukocyte Esterase (Negative) Urine RBC (0-5) /hpf Urine WBC (0-5) /hpf Ur Squamous Epith Cells (0-5) /hpf Urine Bacteria (FEW) /hpf Urine Mucus (FEW) /hpf Urine Yeast (NOT SEEN) SARS-CoV-2 RNA (AGUSTÍN) (NEGATIVE) 01/31/20 Range/Units 08:07 WBC (3.98-10.04) K/mm3 RBC (3.98-5.22) M/mm3 Hgb (11.2-15.7) gm/dl Hct (34.1-44.9) % MCV (79.4-94.8) fl MCH (25.6-32.2) pg MCHC (32.2-35.5) g/dl RDW Std Deviation (36.4-46.3) fL Plt Count (182-369) K/mm3 MPV (9.4-12.3) fl Neutrophils % (Manual) (40-60) % Band Neutrophils % (0-10) % Lymphocytes % (Manual) (20-40) % Atypical Lymphs % % Monocytes % (Manual) (2-10) % Eosinophils % (Manual) (0.7-5.8) % Basophils % (Manual) (0.1-1.2) Toxic Granulation Platelet Estimate Polychromasia Hypochromasia Anisocytosis Ovalocytes RBC Morph Comment D-Dimer, Quantitative (0.19-0.50) mg/L Sodium (136-145) mEq/L Potassium (3.5-5.1) mEq/L Chloride (98-107) mEq/L Carbon Dioxide (21-32) mEq/L Anion Gap (5-15) BUN (7-18) mg/dL Creatinine (0.55-1.02) mg/dL Est Cr Clr Drug Dosing Estimated GFR (MDRD) (>60) mL/min BUN/Creatinine Ratio (14-18) Glucose (80-115) mg/dL Lactic Acid (0.4-2.0) mmol/L Calcium (8.5-10.1) mg/dL Magnesium (1.8-2.4) mg/dl Total Bilirubin (0.2-1.0) mg/dL AST (15-37) U/L ALT (14-59) U/L Alkaline Phosphatase (46-116) U/L Troponin I (0.00-0.056) ng/mL C-Reactive Protein (<1.0) mg/dL NT-Pro-B Natriuret Pep (0-125) pg/mL Total Protein (6.4-8.2) g/dl Albumin (3.4-5.0) g/dl Globulin gm/dL Albumin/Globulin Ratio (1-2) Urine Color Yellow (Yellow) Urine Appearance Clear (Clear) Urine pH 8.5 H (5.0-8.0) Ur Specific [place] 1.020 (1.005-1.030) Urine Protein 1+ H (Negative) Urine Glucose (UA) Negative (Negative) Urine Ketones Negative (Negative) Urine Occult Blood Negative (Negative) Urine Nitrite Negative (Negative) Urine Bilirubin Negative (Negative) Urine Urobilinogen 0.2 (0.2-1.0) Ur Leukocyte Esterase Negative (Negative) Urine RBC 0-5 (0-5) /hpf Urine WBC 5-10 H (0-5) /hpf Ur Squamous Epith Cells 5-10 H (0-5) /hpf Urine Bacteria Few (FEW) /hpf Urine Mucus Not seen (FEW) /hpf Urine Yeast Few H (NOT SEEN) SARS-CoV-2 RNA (AGUSTÍN) (NEGATIVE) Meds: Medications Generic Name Dose Route Start Last Admin Trade Name Freq PRN Reason Stop Dose Admin Azithromycin 500 mg/ Sodium 250 mls @ 250 mls/hr 01/31/20 09:01 Chloride IV 01/31/20 10:00 ONETIME ONE Ceftriaxone Sodium 2 gm/ 100 mls @ 200 mls/hr 01/31/20 09:02 Sodium Chloride IV 01/31/20 09:31 ONETIME ONE Discontinued Medications Generic Name Dose Route Start Last Admin Trade Name Vaibhav PRN Reason Stop Dose Admin Hydromorphone HCl 0.5 mg 01/31/20 06:12 01/31/20 06:33 Dilaudid IVPUSH 01/31/20 06:13 0.5 mg ONETIME ONE Administration Ondansetron HCl 4 mg 01/31/20 06:12 01/31/20 06:33 Zofran IVPUSH 01/31/20 06:13 4 mg ONETIME ONE Administration - Re-Assessments/Exams Free Text/Narrative Re-Assessment/Exam: 01/31/20 08:[address] Ortiz. The patient's WBC was elevated at 22.41. Her Hgb was low at 10.41. Her D-dimer was elevated at 1.51. Her AST was elevated at 1 70. Her ALT was elevated at 107. Her Alk phos was elevated at 146. Her troponin is negative. Her CRP is elevated at 5. Her BNP is elevated at 460. Her COVID 19 and influenza are negative. She is septic but she does not have sever sepsis. I initially thought her CXR looked good but the radiologist said there was new slight diffuse bilateral interstitial prominence could be due to edema or minimal infiltrate. Cardiomegaly with mild vascular congestion. Blood cultures were obtained. She is allergic to lots of antibiotics. I have consulted with pharmacy for some recommendations for antibiotics. 01/31/20 09:19 They recommended azithromycin and rocephin. The omnicef is not a true allergy. I called Dr Pittman and he agreed to the admission. Departure - Departure Time of Disposition: 09:20 Condition: Fair Sepsis Event Note (ED) - Focused Exam Vital Signs: Vital Signs Temp Pulse Resp BP Pulse Ox 01/31/20 05:41 101.7 F H 80 25 H 168/71 H 94 L - My Orders Last 24 Hours: My Active Orders 01/31/20 09:01 Azithromycin [Zithromax] 500 mg Sodium Chloride 0.9% [Normal Saline (AdvBag)] 250 ml IV ONETIME 01/31/20 09:02 cefTRIAXone [Rocephin] 2 gm Sodium Chloride 0.9% [Normal Saline] 100 ml IV ONETIME - Assessment/Plan Last 24 Hours: My Active Orders 01/31/20 09:01 Azithromycin [Zithromax] 500 mg Sodium Chloride 0.9% [Normal Saline (AdvBag)] 250 ml IV ONETIME 01/31/20 09:02 cefTRIAXone [Rocephin] 2 gm Sodium Chloride 0.9% [Normal Saline] 100 ml IV ONETIME
--- NOTE | 2020-01-31 08:59 | CR ---
PROCEDURE INFORMATION: Exam: XR Chest, 2 Views Exam date and time: 01/31/2020 8:17 AM Age: 64 years old Clinical indication: Fever TECHNIQUE: Imaging protocol: XR of the chest Views: 2 views. COMPARISON: DX Chest 2V 09/03/2019 11:28 AM FINDINGS: Lungs: Mild diffuse bilateral interstitial prominence could be due to mild edema or infiltrate. Pleural space: Unremarkable. No pleural effusion. No pneumothorax. Heart/Mediastinum: Cardiomegaly with mild vascular congestion. Aortic calcifications. Bones/joints: Plate and screw fixation lower cervical spine. Degenerate arthritis thoracic spine. Other findings: Shallow inspiration. IMPRESSION: 1. New slight diffuse bilateral interstitial prominence could be due to edema or minimal infiltrate. 2. Cardiomegaly with mild vascular congestion Thank you for allowing us to participate in the care of your patient. Dictated and Authenticated by: Anastasiia Zeng MD 01/31/2020 9:45 AM Central Time ([place] & [place]) MTDD
[2020-01-31] MEDS ORDERED: Azithromycin 500 MG in Sodium Chloride 0.9% 250 ML IV ONE (09:01)
[2020-01-31] MEDS ORDERED: cefTRIAXone 2 GM in Sodium Chloride 0.9% 100 ML IV ONE (09:02)
[2020-01-31] MEDS ORDERED: Ibuprofen 800 MG Tab PO PRN (09:50)
[2020-01-31] MEDS ORDERED: Docusate Sodium 100 MG Cap PO PRN ×2 (09:50→16:17)
[2020-01-31] MEDS ORDERED: Sodium Chloride 0.9% 10 ML Syringe FLUSH PRN (09:50)
[2020-01-31] MEDS ORDERED: HYDROmorphone 0.5 MG/0.5 ML Syringe IVPUSH PRN (09:50)
[2020-01-31] MEDS ORDERED: Acetaminophen 325 MG Tab PO PRN (09:50)
[2020-01-31] MEDS ORDERED: Ondansetron 4 MG/2 ML SDV IV PRN (09:50)
[2020-01-31] MEDS: Enoxaparin 40 MG/0.4 ML Syringe SUBCUT SCH ×2 (11:13→21:06)
--- NOTE | 2020-01-31 13:48 | PCM.HP.2 ---
H&P History of Present Illness - General Date of Service: 01/31/20 Admit Problem/Dx: Admission Diagnosis/Problem Admission Diagnosis/Problem Pneumonia Source of Information: Patient, Provider History Limitations: Reports: No Limitations - History of Present Illness Initial Comments - Free Text/Narative: Ms. Ross is a pleasant 64-year-old woman who is now brought to the ED by EMS stating that she had some chills when she went to bed around 22:00 last night, but that she slept well. When she woke up this morning, however, she states that her cheeks felt warm, and she had lower back pain. She checked her temperature, finding that she had a fever. She acknowledges that she has chronic lower back pain, but that her pain at this morning was worse than usual. She also reports having rhinorrhea this morning. She reports having some dyspnea, both at rest and with exertion. No recent cough. No urinary symptoms. She did not take any [id number] or home remedies prior to coming to the ED. The patient states that she checks her blood glucose twice a day, with a normal Accu-Chek in the morning between 79 and 128, and a normal p.m. Accu-Chek in the 130s. She did not check her blood glucose at this morning. ED, the patient's initial BP is found to be elevated at 168/71, with tachypnea of 25 rpm, a fever of 101.6, saturating 94% on room air. Prior to last night, the patient denies having a recent fever, chills, sore throat, ear pain, nasal or sinus congestion, cough, dyspnea, chest pain, palpitations, nausea, vomiting, constipation, diarrhea, abdominal pain, urinary symptoms, recent weight gain or weight loss, recent bloody bowel movements or black bowel movements, recent joint aches, headaches, or rashes. The patient's PCP is Dr. Bill Quiros. Her Adjunct Philosophy Faculty is Dr. Franc Gómez. She did receive an influenza vaccine this season. Back Pain Score (Numeric/FACES): 3 - Related Data Allergies/Adverse Reactions: Allergies Allergy/AdvReac Type Severity Reaction Status Date / Time esomeprazole magnesium Allergy Severe Edema Verified 01/31/20 05:40 [From Vimovo] esomeprazole [From Nexium] Allergy Swelling Verified 01/31/20 05:40 naproxen Allergy Edema Verified 01/31/20 05:40 sitagliptin Allergy Shortness Verified 01/31/20 05:40 of Breath amoxicillin AdvReac Dizziness Verified 01/31/20 05:40 cefdinir AdvReac Diarrhea Verified 01/31/20 05:40 clindamycin AdvReac Blurred Verified 01/31/20 05:40 Vision duloxetine AdvReac Delusions Verified 01/31/20 05:40 levofloxacin [From Levaquin] AdvReac Insomnia Verified 01/31/20 05:40 morphine AdvReac Tachycardia Verified 01/31/20 05:40 rivaroxaban [From Xarelto] AdvReac Change Verified 01/31/20 13:31 Mental Status Home Medications: Home Meds Mirtazapine [Remeron] 15 mg PO DAILY 05/22/15 [History] Venlafaxine [Effexor XR] 300 mg PO DAILY 05/22/15 [History] atorvaSTATin [Lipitor] 40 mg PO DAILY 05/22/15 [History] rOPINIRole HCl [Requip] 0.5 mg PO ASDIRECTED 07/30/16 [History] Albuterol [Ventolin HFA] 2 puff INH Q4H PRN 10/02/18 [History] Docusate Sodium [Colace] 100 mg PO DAILY PRN 10/02/18 [History] Fluticasone Propionate [Flonase] 2 spray NASBOTH DAILY 10/02/18 [History] Gabapentin [Neurontin] 800 mg PO TID 10/02/18 [History] Insulin Glargine,Hum.Rec.Anlog [Toujeo Solostar] 76 units SQ BEDTIME 10/02/18 [History] Ondansetron [Zofran] 4 mg PO Q6H PRN 10/02/18 [History] Trolamine Salicylate/Aloe Vera [Aspercreme 10% Cream] 1 dose TOP ASDIRECTED PRN 10/02/18 [History] fentaNYL [Duragesic] 25 mcg TOP Q72H 10/02/18 [History] rOPINIRole [Requip] 1 mg PO TID 10/02/18 [History] Pantoprazole Sodium [Protonix] 40 mg PO BID 08/06/19 [History] Aspirin 81 mg PO DAILY 11/20/19 [History] Mupirocin Oint [Bactroban Oint] 1 dose TOP BID 11/20/19 [History] Potassium Chloride 20 meq PO TID 11/20/19 [History] Torsemide 10 mg PO 1200 11/20/19 [History] Torsemide 20 mg PO QAM 11/20/19 [History] Acetaminophen/HYDROcodone [Parmelee 325-5 MG] 1 tab PO Q6H PRN #20 tablet 11/21/19 [Rx] carvediloL [Coreg] 25 mg PO BID 11/21/19 [History] Cyclobenzaprine [Flexeril] 10 mg PO TID PRN #20 tab 01/19/20 [Rx] Ondansetron [Zofran ODT] 4 mg PO Q6H PRN #20 tab.dis 01/19/20 [Rx] Past Medical History HEENT History: Reports: Impaired Vision, Other (See Below) Other HEENT History: sinus polyp, disease of lips, visual loss, wears glasses Cardiovascular History: Reports: Heart Failure, High Cholesterol, Hypertension, Other (See Below) Other Cardiovascular History: Bilat. venous stasis Respiratory History: Reports: Asthma, Bronchitis, Recurrent, Pneumonia, Recurrent, Sleep Apnea, SOB Other Respiratory History: SOB r/t pneumonia, not present w/o pneumonia. Gastrointestinal History: Reports: Chronic Constipation, Chronic Diarrhea, GERD Genitourinary History: Reports: Other (See Below), UTI, Recurrent Other Genitourinary History: bladder cancer, cervical mucous polyp, hematuria, incontinence, bladder surgery TIME STUDY STATISTICIAN History: Reports: , Other (See Below) Other OB/BYN History: dysmenorrhea, vaginitis, breast biopsy Musculoskeletal History: Reports: Arthritis, Back Pain, Chronic, Osteoarthritis, Other (See Below) Other Musculoskeletal History: tarsal tunnel syndrome, left knee pain, patellofemoral syndrome, joint pain, myalgia, myositis Neurological History: Reports: Migraines, Neuropathy, Diabetic, Other (See Below) Other Neuro History: cervical herniated nucleus pulposus, meningioma Psychiatric History: Reports: Anxiety, Depression, Other (See Below) Other Psychiatric History: insomnia, pain management Endocrine/Metabolic History: Reports: Diabetes, Type II, Obesity/BMI 30+ Hematologic History: Reports: Anemia Immunologic History: Reports: None Oncologic (Cancer) History: Reports: Bladder Dermatologic History: Reports: Other (See Below) Other Dermatologic History: SQ skin infection, hair follicle infection, skin hypertrophy, viral warts, sore on left buttock. - Infectious Disease History Infectious Disease History: Reports: Chicken Pox, Measles, Mumps - Past Surgical History HEENT Surgical History: Reports: Adenoidectomy, Naso-Sinus Surgery, Tonsillectomy Cardiovascular Surgical History: Reports: None Respiratory Surgical History: Reports: None GI Surgical History: Reports: None Female Surgical History: Reports: Hysterectomy Other Female Surgeries/Procedures: cancerous bladder tumor removed. Endocrine Surgical History: Reports: None Neurological Surgical History: Reports: Other (See Below), Spinal Fusion Other Neurological Surgeries/Procedures: spine surgery, brain surgery Musculoskeletal Surgical History: Reports: Carpal Tunnel, Knee Replacement, Other (See Below) Other Musculoskeletal Surgeries/Procedures:: foot surgery x2, RTK, tarsal tunnel surgery Other Oncologic Surgeries/Procedures: Meningioma removed from brain. Dermatological Surgical History: Reports: None Social & Family History - Family History Family Medical History: No Pertinent Family History - Tobacco Use Tobacco Use Status *Q: Never Tobacco User - Caffeine Use Caffeine Use: Reports: Soda - Recreational Drug Use Recreational Drug Use: No - Living Situation & Occupation Living situation: Reports: , with Family (Mother) Occupation: Retired H&P Review of Systems - Review of Systems: Review Of Systems: See Below General: Reports: Fever, Chills, Malaise, Weakness HEENT: Reports: Rhinitis Pulmonary: Reports: No Symptoms. Denies: Cough, Sputum Cardiovascular: Reports: Edema (1+ pitting to bilateral lower extremities). Denies: Chest Pain, Palpitations Gastrointestinal: Reports: No Symptoms Genitourinary: Reports: No Symptoms Musculoskeletal: Reports: Back Pain (Patient reports that she does have chronic low back pain.) Skin: Reports: No Symptoms Psychiatric: Reports: No Symptoms Neurological: Reports: No Symptoms Exam - Exam Exam: See Below - Vital Signs Vital Signs: Last Vital Signs Temp 100.2 F 01/31/20 11:10 Pulse 68 01/31/20 11:10 Resp 16 01/31/20 11:10 BP 136/74 01/31/20 11:10 Pulse Ox 94 L 01/31/20 11:10 Weight: 243 lb 11.2 oz - Exam Quality Assessment: DVT Prophylaxis (Lovenox) General: Alert, Oriented, Cooperative, Mild Distress HEENT: Conjunctiva Clear, EACs Clear, Mucosa Moist & [place], Pupils Equal, Pupils Reactive Neck: Supple, Trachea Midline. No: Lymphadenopathy Lungs: Decreased Breath Sounds Cardiovascular: Regular Rate, Regular Rhythm, Normal S1, Normal S2 GI/Abdominal Exam: Normal Bowel Sounds, Soft, Non-Tender, No Distention (Female) Exam: Deferred Rectal (Female) Exam: Deferred Back Exam: Normal Inspection, Full Range of Motion Extremities: Normal Inspection, Normal Range of Motion, Non-Tender, Normal Capillary Refill, Pedal Edema (1+ pitting to bilateral lower extremities) Peripheral Pulses: 2+: Radial (L), Radial (R), Dorsalis Pedis (L), Dorsalis Pedis (R) Skin: Warm, Dry, Intact Neuro Extensive - Mental Status: Alert, Oriented x3, Normal Mood/Affect, Normal Cognition, Memory Intact Psychiatric: Alert, Normal Affect, Normal Mood - Patient Data Lab Results Last 24 hrs: Laboratory Results - last 24 hr 01/31/20 01/31/20 01/31/20 Range/Units 06:43 06:45 06:45 WBC 22.41 H (3.98-10.04) K/mm3 RBC 3.67 L (3.98-5.22) M/mm3 Hgb 10.4 L (11.2-15.7) gm/dl Hct 35.1 (34.1-44.9) % MCV 95.6 H (79.4-94.8) fl MCH 28.3 (25.6-32.2) pg MCHC 29.6 L (32.2-35.5) g/dl RDW Std Deviation 47.3 H (36.4-46.3) fL Plt Count 234 (182-369) K/mm3 MPV 10.2 (9.4-12.3) fl Neutrophils % (Manual) 89 H (40-60) % Band Neutrophils % 0 (0-10) % Lymphocytes % (Manual) 5 L (20-40) % Atypical Lymphs % 0 % Monocytes % (Manual) 5 (2-10) % Eosinophils % (Manual) 1 (0.7-5.8) % Basophils % (Manual) 0 L (0.1-1.2) Toxic Granulation Few Platelet Estimate Adequate Polychromasia 1+ slight Hypochromasia 1+ slight Anisocytosis 1+ sligh Ovalocytes 1+ slight RBC Morph Comment Normal D-Dimer, Quantitative (0.19-0.50) mg/L Sodium 143 (136-145) mEq/L Potassium 3.5 (3.5-5.1) mEq/L Chloride 105 (98-107) mEq/L Carbon Dioxide 31 (21-32) mEq/L Anion Gap 10.5 (5-15) BUN 14 (7-18) mg/dL Creatinine 0.9 (0.55-1.02) mg/dL Est Cr Clr Drug Dosing TNP Estimated GFR (MDRD) > 60 (>60) mL/min BUN/Creatinine Ratio 15.6 (14-18) Glucose 63 L (80-115) mg/dL POC Glucose (80-115) mg/dL Lactic Acid (0.4-2.0) mmol/L Calcium 9.1 (8.5-10.1) mg/dL Magnesium 2.4 (1.8-2.4) mg/dl Total Bilirubin 0.5 (0.2-1.0) mg/dL AST 170 H (15-37) U/L ALT 107 H (14-59) U/L Alkaline Phosphatase 146 H (46-116) U/L Troponin I < 0.017 (0.00-0.056) ng/mL C-Reactive Protein 5.0 H* (<1.0) mg/dL NT-Pro-B Natriuret Pep (0-125) pg/mL Total Protein 6.6 (6.4-8.2) g/dl Albumin 3.4 (3.4-5.0) g/dl Globulin 3.2 gm/dL Albumin/Globulin Ratio 1.1 (1-2) Urine Color (Yellow) Urine Appearance (Clear) Urine pH (5.0-8.0) Ur Specific [place] (1.005-1.030) Urine Protein (Negative) Urine Glucose (UA) (Negative) Urine Ketones (Negative) Urine Occult Blood (Negative) Urine Nitrite (Negative) Urine Bilirubin (Negative) Urine Urobilinogen (0.2-1.0) Ur Leukocyte Esterase (Negative) Urine RBC (0-5) /hpf Urine WBC (0-5) /hpf Ur Squamous Epith Cells (0-5) /hpf Urine Bacteria (FEW) /hpf Urine Mucus (FEW) /hpf Urine Yeast (NOT SEEN) SARS-CoV-2 RNA (AGUSTÍN) Negative (NEGATIVE) 01/31/20 01/31/20 01/31/20 Range/Units 06:45 06:45 06:45 WBC (3.98-10.04) K/mm3 RBC (3.98-5.22) M/mm3 Hgb (11.2-15.7) gm/dl Hct (34.1-44.9) % MCV (79.4-94.8) fl MCH (25.6-32.2) pg MCHC (32.2-35.5) g/dl RDW Std Deviation (36.4-46.3) fL Plt Count (182-369) K/mm3 MPV (9.4-12.3) fl Neutrophils % (Manual) (40-60) % Band Neutrophils % (0-10) % Lymphocytes % (Manual) (20-40) % Atypical Lymphs % % Monocytes % (Manual) (2-10) % Eosinophils % (Manual) (0.7-5.8) % Basophils % (Manual) (0.1-1.2) Toxic Granulation Platelet Estimate Polychromasia Hypochromasia Anisocytosis Ovalocytes RBC Morph Comment D-Dimer, Quantitative 1.51 H (0.19-0.50) mg/L Sodium (136-145) mEq/L Potassium (3.5-5.1) mEq/L Chloride (98-107) mEq/L Carbon Dioxide (21-32) mEq/L Anion Gap (5-15) BUN (7-18) mg/dL Creatinine (0.55-1.02) mg/dL Est Cr Clr Drug Dosing Estimated GFR (MDRD) (>60) mL/min BUN/Creatinine Ratio (14-18) Glucose (80-115) mg/dL POC Glucose (80-115) mg/dL Lactic Acid 1.0 (0.4-2.0) mmol/L Calcium (8.5-10.1) mg/dL Magnesium (1.8-2.4) mg/dl Total Bilirubin (0.2-1.0) mg/dL AST (15-37) U/L ALT (14-59) U/L Alkaline Phosphatase (46-116) U/L Troponin I (0.00-0.056) ng/mL C-Reactive Protein (<1.0) mg/dL NT-Pro-B Natriuret Pep 460 H (0-125) pg/mL Total Protein (6.4-8.2) g/dl Albumin (3.4-5.0) g/dl Globulin gm/dL Albumin/Globulin Ratio (1-2) Urine Color (Yellow) Urine Appearance (Clear) Urine pH (5.0-8.0) Ur Specific [place] (1.005-1.030) Urine Protein (Negative) Urine Glucose (UA) (Negative) Urine Ketones (Negative) Urine Occult Blood (Negative) Urine Nitrite (Negative) Urine Bilirubin (Negative) Urine Urobilinogen (0.2-1.0) Ur Leukocyte Esterase (Negative) Urine RBC (0-5) /hpf Urine WBC (0-5) /hpf Ur Squamous Epith Cells (0-5) /hpf Urine Bacteria (FEW) /hpf Urine Mucus (FEW) /hpf Urine Yeast (NOT SEEN) SARS-CoV-2 RNA (AGUSTÍN) (NEGATIVE) 01/31/20 01/31/20 01/31/20 Range/Units 08:07 12:07 12:32 WBC (3.98-10.04) K/mm3 RBC (3.98-5.22) M/mm3 Hgb (11.2-15.7) gm/dl Hct (34.1-44.9) % MCV (79.4-94.8) fl MCH (25.6-32.2) pg MCHC (32.2-35.5) g/dl RDW Std Deviation (36.4-46.3) fL Plt Count (182-369) K/mm3 MPV (9.4-12.3) fl Neutrophils % (Manual) (40-60) % Band Neutrophils % (0-10) % Lymphocytes % (Manual) (20-40) % Atypical Lymphs % % Monocytes % (Manual) (2-10) % Eosinophils % (Manual) (0.7-5.8) % Basophils % (Manual) (0.1-1.2) Toxic Granulation Platelet Estimate Polychromasia Hypochromasia Anisocytosis Ovalocytes RBC Morph Comment D-Dimer, Quantitative (0.19-0.50) mg/L Sodium (136-145) mEq/L Potassium (3.5-5.1) mEq/L Chloride (98-107) mEq/L Carbon Dioxide (21-32) mEq/L Anion Gap (5-15) BUN (7-18) mg/dL Creatinine (0.55-1.02) mg/dL Est Cr Clr Drug Dosing Estimated GFR (MDRD) (>60) mL/min BUN/Creatinine Ratio (14-18) Glucose (80-115) mg/dL POC Glucose 54 L 71 L (80-115) mg/dL Lactic Acid (0.4-2.0) mmol/L Calcium (8.5-10.1) mg/dL Magnesium (1.8-2.4) mg/dl Total Bilirubin (0.2-1.0) mg/dL AST (15-37) U/L ALT (14-59) U/L Alkaline Phosphatase (46-116) U/L Troponin I (0.00-0.056) ng/mL C-Reactive Protein (<1.0) mg/dL NT-Pro-B Natriuret Pep (0-125) pg/mL Total Protein (6.4-8.2) g/dl Albumin (3.4-5.0) g/dl Globulin gm/dL Albumin/Globulin Ratio (1-2) Urine Color Yellow (Yellow) Urine Appearance Clear (Clear) Urine pH 8.5 H (5.0-8.0) Ur Specific [place] 1.020 (1.005-1.030) Urine Protein 1+ H (Negative) Urine Glucose (UA) Negative (Negative) Urine Ketones Negative (Negative) Urine Occult Blood Negative (Negative) Urine Nitrite Negative (Negative) Urine Bilirubin Negative (Negative) Urine Urobilinogen 0.2 (0.2-1.0) Ur Leukocyte Esterase Negative (Negative) Urine RBC 0-5 (0-5) /hpf Urine WBC 5-10 H (0-5) /hpf Ur Squamous Epith Cells 5-10 H (0-5) /hpf Urine Bacteria Few (FEW) /hpf Urine Mucus Not seen (FEW) /hpf Urine Yeast Few H (NOT SEEN) SARS-CoV-2 RNA (AGUSTÍN) (NEGATIVE) 01/31/20 Range/Units 13:10 WBC (3.98-10.04) K/mm3 RBC (3.98-5.22) M/mm3 Hgb (11.2-15.7) gm/dl Hct (34.1-44.9) % MCV (79.4-94.8) fl MCH (25.6-32.2) pg MCHC (32.2-35.5) g/dl RDW Std Deviation (36.4-46.3) fL Plt Count (182-369) K/mm3 MPV (9.4-12.3) fl Neutrophils % (Manual) (40-60) % Band Neutrophils % (0-10) % Lymphocytes % (Manual) (20-40) % Atypical Lymphs % % Monocytes % (Manual) (2-10) % Eosinophils % (Manual) (0.7-5.8) % Basophils % (Manual) (0.1-1.2) Toxic Granulation Platelet Estimate Polychromasia Hypochromasia Anisocytosis Ovalocytes RBC Morph Comment D-Dimer, Quantitative (0.19-0.50) mg/L Sodium (136-145) mEq/L Potassium (3.5-5.1) mEq/L Chloride (98-107) mEq/L Carbon Dioxide (21-32) mEq/L Anion Gap (5-15) BUN (7-18) mg/dL Creatinine (0.55-1.02) mg/dL Est Cr Clr Drug Dosing Estimated GFR (MDRD) (>60) mL/min BUN/Creatinine Ratio (14-18) Glucose (80-115) mg/dL POC Glucose 81 (80-115) mg/dL Lactic Acid (0.4-2.0) mmol/L Calcium (8.5-10.1) mg/dL Magnesium (1.8-2.4) mg/dl Total Bilirubin (0.2-1.0) mg/dL AST (15-37) U/L ALT (14-59) U/L Alkaline Phosphatase (46-116) U/L Troponin I (0.00-0.056) ng/mL C-Reactive Protein (<1.0) mg/dL NT-Pro-B Natriuret Pep (0-125) pg/mL Total Protein (6.4-8.2) g/dl Albumin (3.4-5.0) g/dl Globulin gm/dL Albumin/Globulin Ratio (1-2) Urine Color (Yellow) Urine Appearance (Clear) Urine pH (5.0-8.0) Ur Specific [place] (1.005-1.030) Urine Protein (Negative) Urine Glucose (UA) (Negative) Urine Ketones (Negative) Urine Occult Blood (Negative) Urine Nitrite (Negative) Urine Bilirubin (Negative) Urine Urobilinogen (0.2-1.0) Ur Leukocyte Esterase (Negative) Urine RBC (0-5) /hpf Urine WBC (0-5) /hpf Ur Squamous Epith Cells (0-5) /hpf Urine Bacteria (FEW) /hpf Urine Mucus (FEW) /hpf Urine Yeast (NOT SEEN) SARS-CoV-2 RNA (AGUSTÍN) (NEGATIVE) Result Diagrams: 01/31/20 06:45 01/31/20 06:45 [place] Results Last 24 hrs: Microbiology 01/31/20 06:43 Influenza Type A Antigen Screen - Final Nasopharyngeal Swab NEGATIVE INFLUENZA A VIRUS AG REFERENCE RANGE: NEGATIVE Influenza Type B Antigen Screen - Final NEGATIVE INFLUENZA B VIRUS AG REFERENCE RANGE: NEGATIVE Sepsis Event Note - Evaluation Sepsis Screening Result: No Definite Risk - Focused Exam Vital Signs: Vital Signs Temp Temp Pulse Pulse Resp BP BP 01/31/20 11:10 100.2 F 68 16 136/74 01/31/20 10:44 97.1 F 74 130/69 01/31/20 09:20 77 128/70 01/31/20 08:30 78 130/76 01/31/20 07:15 78 150/83 H 01/31/20 05:41 101.7 F H 80 25 H 168/71 H Pulse Ox 01/31/20 11:10 94 L 01/31/20 10:44 96 01/31/20 09:20 01/31/20 08:30 98 01/31/20 07:15 99 01/31/20 05:41 94 L - Problem List (1) CHF (congestive heart failure) SNOMED Code(s): 74718617 ICD Code: I50.9 - HEART FAILURE, UNSPECIFIED Status: Chronic Priority: High Current Visit: Yes Qualifiers: Heart failure type: unspecified Heart failure chronicity: unspecified Qualified Code(s): I50.9 - Heart failure, unspecified (2) PVD (peripheral vascular disease) SNOMED Code(s): 554506341 ICD Code: I73.9 - PERIPHERAL VASCULAR DISEASE, UNSPECIFIED Status: Chronic Priority: Medium Current Visit: Yes (3) Pneumonia SNOMED Code(s): 655618322 ICD Code: J18.9 - PNEUMONIA, UNSPECIFIED ORGANISM Status: Acute Priority: High Current Visit: Yes Qualifiers: Pneumonia type: due to unspecified organism Laterality: bilateral Lung location: lower lobe of lung Qualified Code(s): J18.9 - Pneumonia, unspecified organism (4) Sepsis SNOMED Code(s): 73406343 ICD Code: A41.9 - SEPSIS, UNSPECIFIED ORGANISM Status: Acute Priority: High Current Visit: Yes Qualifiers: Sepsis type: sepsis due to unspecified organism Sepsis acute organ dysfunction status: unspecified Qualified Code(s): A41.9 - Sepsis, unspecified organism (5) Low back pain with sciatica SNOMED Code(s): 210437696 ICD Code: M54.40 - LUMBAGO WITH SCIATICA, UNSPECIFIED SIDE Status: Chronic Priority: Low Current Visit: Yes Qualifiers: Chronicity: acute Back pain laterality: left Sciatica laterality: sciatica of left side Qualified Code(s): M54.42 - Lumbago with sciatica, left side Problem List Initiated/Reviewed/Updated: Yes Orders Last 24hrs: Active Orders 24 hr Category Date Time Status Patient Status [ADT] Routine ADT 01/31/20 09:51 Active Antiembolic Devices [RC] PER UNIT ROUTINE Care 01/31/20 09:54 Active Blood Glucose Check, Bedside [RC] QIDACANDBED Care 01/31/20 09:50 Active Cardiac Monitoring [RC] CONTINUOUS Care 01/31/20 09:52 Active EKG Documentation Completion [RC] STAT Care 01/31/20 06:09 Active Height and Weight [RC] DAILY Care 01/31/20 09:50 Active Intake and Output [RC] QSHIFT Care 01/31/20 09:52 Active Oxygen Therapy [RC] PRN Care 01/31/20 09:51 Active Up With Assistance [RC] ASDIRECTED Care 01/31/20 09:50 Active VTE/DVT Education [RC] PER UNIT ROUTINE Care 01/31/20 09:51 Active Vital Signs [RC] Q4H Care 01/31/20 09:51 Active Consult to Case Management/Safety Deposit Clerk [CONS] Cons 01/31/20 09:50 Active Routine Consult to Pot Puller [CONS] Routine Cons 01/31/20 09:50 Active Consult to Spiritual Care [CONS] Routine Cons 01/31/20 09:50 Active OT Evaluation and Treatment [CONS] Routine Cons 01/31/20 09:50 Active PT Evaluation and Treatment [CONS] Routine Cons 01/31/20 09:50 Active Respiratory Care Assess and Treatment [CONS] Routine Cons 01/31/20 09:50 Active ADA Diabetic [[place] [employer] Diet] [DIET Diet 01/31/20 Lunch Active ] Fluid Restriction [DIET] Diet 01/31/20 Lunch Active CBC WITH AUTO DIFF [HEME] DAILY Lab 02/01/20 05:11 Ordered CBC WITH AUTO DIFF [HEME] DAILY Lab 02/02/20 05:11 Ordered CBC WITH AUTO DIFF [HEME] DAILY Lab 02/03/20 05:11 Ordered CBC WITH AUTO DIFF [HEME] DAILY Lab 02/04/20 05:11 Ordered CBC WITH AUTO DIFF [HEME] DAILY Lab 02/05/20 05:11 Ordered COMPREHENSIVE METABOLIC PN,CMP [CHEM] DAILY Lab 02/01/20 05:11 Ordered COMPREHENSIVE METABOLIC PN,CMP [CHEM] DAILY Lab 02/02/20 05:11 Ordered COMPREHENSIVE METABOLIC PN,CMP [CHEM] DAILY Lab 02/03/20 05:11 Ordered COMPREHENSIVE METABOLIC PN,CMP [CHEM] DAILY Lab 02/04/20 05:11 Ordered COMPREHENSIVE METABOLIC PN,CMP [CHEM] DAILY Lab 02/05/20 05:11 Ordered CORONAVIRUS COVID-19 PCR PHL Stat Lab 01/31/20 06:45 Ordered CULTURE BLOOD [BC] Stat Lab 01/31/20 06:45 Received CULTURE BLOOD [BC] Stat Lab 01/31/20 06:50 Received MAGNESIUM [CHEM] DAILY Lab 02/01/20 05:11 Ordered MAGNESIUM [CHEM] DAILY Lab 02/02/20 05:11 Ordered MAGNESIUM [CHEM] DAILY Lab 02/03/20 05:11 Ordered MAGNESIUM [CHEM] DAILY Lab 02/04/20 05:11 Ordered MAGNESIUM [CHEM] DAILY Lab 02/05/20 05:11 Ordered Acetaminophen [TylenoL] Med 01/31/20 09:50 Active 650 mg PO Q4H PRN Docusate Sodium [Colace] Med 01/31/20 09:50 Active 100 mg PO BID PRN Enoxaparin [Lovenox] Med 01/31/20 10:00 Active 40 mg SUBCUT Q12H HYDROmorphone [Dilaudid] Med 01/31/20 09:50 Active 0.5 mg IVPUSH Q2H PRN Ibuprofen [Motrin] Med 01/31/20 09:50 Active 800 mg PO Q6H PRN Ondansetron [Zofran] Med 01/31/20 09:50 Active 4 mg IV Q4H PRN Sodium Chloride 0.9% [Saline Flush] Med 01/31/20 09:50 Active 10 ml FLUSH ASDIRECTED PRN Antiembolic Hose [OM.PC] Per Unit Routine Oth 01/31/20 09:52 Ordered Blood Culture x2 Reflex Set [OM.PC] Stat Oth 01/31/20 06:10 Ordered Saline Lock Insert [OM.PC] Routine Oth 01/31/20 09:50 Ordered Resuscitation Status Routine Resus Stat 01/31/20 09:50 Ordered Medication Orders Acetaminophen (Tylenol) 650 mg PO Q4H PRN PRN Reason: Pain (Mild 1-3)/fever Last Admin: 01/31/20 13:16 Dose: 650 mg Documented by: [email or web address] Docusate Sodium (Colace) 100 mg PO BID PRN PRN Reason: Constipation Enoxaparin Sodium (Lovenox) 40 mg SUBCUT Q12H MOHSEN Last Admin: 01/31/20 11:13 Dose: 40 mg Documented by: RHODTRI Hydromorphone HCl (Dilaudid) 0.5 mg IVPUSH Q2H PRN PRN Reason: Pain (severe 7-10) Ibuprofen (Motrin) 800 mg PO Q6H PRN PRN Reason: Pain (moderate 4-6) Ondansetron HCl (Zofran) 4 mg IV Q4H PRN PRN Reason: Nausea/Vomiting Sodium Chloride (Saline Flush) 10 ml FLUSH ASDIRECTED PRN PRN Reason: Keep Vein Open Assessment/Plan Comment:: * 64-year-old female rapid onset of chills and fever last night before bed. * Vital signs in the ER reveal: Temp 101.7 Fahrenheit, pulse 80, respiratory rate 25, blood pressure 168/71, pulse ox 94% on room air. * Labs in the ED revealed WBC 22.41, platelet count 234, 89% neutrophil percentage potassium 3.5, AST 170, ALT 107, alk phos 146, troponin less than 0.017, C-reactive protein 5.0, D-dimer 1.51, lactic acid 1.0, BNP 460, Covid screen was negative, urinalysis was negative for infection, blood cultures x2 are pending. * Chest x-ray reveals new slight diffuse bilateral interstitial prominence could be due to edema or minimal infiltrate. Cardiomegaly with mild vascular congestion. * Sepsis protocol was initiated and followed. * Patient is diabetic and only takes Toujeo. States her blood sugar over the course of the last couple of days have been in the 130s. She checks them twice daily. * Patient's blood sugar was 54 when she got to the medical floor. Upon recheck after eating lunch her blood sugar is now 81. PLAN: * Rocephin 2 g IV daily * Recheck labs in the a.m. * Monitor blood cultures * Continue to monitor vital signs and daily weight * Lovenox for DVT prophylaxis * PT and OT to eval and treat * Dietitian to consult * medical services coordinator and case management for discharge planning * Accu-Cheks 4 times daily before meals and at bedtime * Monitor daily weight and strict intake and output as patient has a history of CHF * Patient to wear her own CPAP at nighttime. * Incentive spirometer every 1 hour while awake * Patient is a full code. - Mortality Measure Prognosis:: Good
[2020-01-31] MEDS ORDERED: 50% Dextrose in Water 50 ML Syringe IV PRN (14:08)
[2020-01-31] MEDS ORDERED: Acetaminophen/HYDROcodone 325-5 MG Tab PO PRN (16:17)
[2020-01-31] MEDS ORDERED: Trolamine Salicylate/Aloe Vera 10% Crm 85 GM Tube TOP PRN (16:17)
[2020-01-31] MEDS ORDERED: Ondansetron 4 MG Tab.DIS PO PRN (16:17)
[2020-01-31] MEDS ORDERED: Cyclobenzaprine 10 MG Tab PO PRN (16:17)
[2020-01-31] MEDS: Gabapentin 100 MG Cap PO SCH ×2 (16:43→20:55)
[2020-01-31] MEDS: Gabapentin 600 MG Tab PO SCH ×2 (16:44→20:56)
[2020-01-31] MEDS ORDERED: fentaNYL 25 MCG/HR Transdermal Patch TOP SCH (17:00)
[2020-01-31] MEDS: Insulin Lispro 100 Units/ML 3 ML Vial SUBCUT SCH ×2 (17:52→21:06)
[2020-01-31] MEDS: Mupirocin Oint 22 GM Tube TOP SCH (20:53)
[2020-01-31] MEDS: Carvedilol 12.5 MG Tab PO SCH (20:54)
[2020-01-31] MEDS: Potassium Chloride 20 MEQ Tab.ER PO SCH (20:55)
[2020-01-31] MEDS: Fluticasone Propionate Nasal Spray 16 GM Bottle NASBOTH SCH (20:55)
[2020-01-31] MEDS: Pantoprazole 40 MG Tab.CR PO SCH (20:57)
[2020-01-31] MEDS: Mirtazapine 15 MG Tab PO SCH (20:57)
[2020-01-31] MEDS ORDERED: Insulin Glarg,Human.Rec.Analog 100 Unit/ML SUBCUT SCH (21:00)
[2020-01-31] MEDS ORDERED: rOPINIRole 1 MG Tab PO SCH ×2 (21:00)
[2020-02-01] MEDS: Torsemide 20 MG Tab PO SCH ×2 (06:36→12:18)
[2020-02-01] MEDS: Insulin Lispro 100 Units/ML 3 ML Vial SUBCUT SCH ×4 (06:36→21:02)
[2020-02-01] MEDS: Venlafaxine 75 MG Cap.ER PO SCH (08:18)
[2020-02-01] MEDS: Carvedilol 12.5 MG Tab PO SCH ×2 (08:18→21:00)
[2020-02-01] MEDS: Rosuvastatin 10 MG Tab PO SCH (08:19)
[2020-02-01] MEDS: Aspirin 81 MG Tab.Chew PO SCH (08:19)
[2020-02-01] MEDS: Potassium Chloride 20 MEQ Tab.ER PO SCH ×3 (08:19→21:01)
[2020-02-01] MEDS: Gabapentin 100 MG Cap PO SCH ×3 (08:19→21:01)
[2020-02-01] MEDS: Pantoprazole 40 MG Tab.CR PO SCH ×2 (08:19→21:02)
[2020-02-01] MEDS: Gabapentin 600 MG Tab PO SCH ×3 (08:20→21:01)
[2020-02-01] MEDS: Mupirocin Oint 22 GM Tube TOP SCH ×2 (08:25→20:59)
[2020-02-01] MEDS: rOPINIRole 1 MG Tab PO SCH ×4 (08:31→21:02)
[2020-02-01] MEDS ORDERED: Insulin Glarg,Human.Rec.Analog 100 Unit/ML SUBCUT SCH (09:00)
[2020-02-01] MEDS: Enoxaparin 40 MG/0.4 ML Syringe SUBCUT SCH ×2 (10:13→21:04)
[2020-02-01] MEDS: Insulin Glarg,Human.Rec.Analog 100 Unit/ML SUBCUT SCH (12:17)
[2020-02-01] MEDS ORDERED: cefTRIAXone 2 GM in Sodium Chloride 0.9% 100 ML IV SCH (15:00)
[2020-02-01] MEDS ORDERED: Azithromycin 500 MG in Sodium Chloride 0.9% 250 ML IV SCH (16:00)
--- NOTE | 2020-02-01 20:05 | PCM.PN ---
- General Info Date of Service: 02/01/20 Admission Dx/Problem (Free Text): Admission Diagnosis/Problem Admission Diagnosis/Problem Pneumonia Subjective Update: Patient states that she is feeling well and wants to go home. Unfortunately she continues on supplemental O2. - Review of Systems General: Reports: No Symptoms HEENT: Reports: No Symptoms Pulmonary: Reports: No Symptoms Cardiovascular: Reports: No Symptoms Gastrointestinal: Reports: No Symptoms Musculoskeletal: Reports: No Symptoms Neurological: Reports: No Symptoms - Patient Data Vitals - Most Recent: Last Vital Signs Temp 98.1 F 02/01/20 15:48 Pulse 61 02/01/20 15:48 Resp 20 02/01/20 15:48 BP 145/71 H 02/01/20 15:48 Pulse Ox 98 02/01/20 15:48 Weight - Most Recent: 242 lb 4.8 oz I&O - Last 24 Hours: Intake & Output 02/01/20 02/01/20 02/01/20 06:59 14:59 22:59 Intake Total 300 100 600 Output Total 975 1800 Balance -675 100 -1200 Lab Results Last 24 Hours: Laboratory Results - last 24 hr 01/31/20 02/01/20 02/01/20 Range/Units 20:41 06:22 06:25 WBC 8.84 (3.98-10.04) K/mm3 RBC 3.44 L (3.98-5.22) M/mm3 Hgb 9.6 L (11.2-15.7) gm/dl Hct 33.3 L (34.1-44.9) % MCV 96.8 H (79.4-94.8) fl MCH 27.9 (25.6-32.2) pg MCHC 28.8 L (32.2-35.5) g/dl RDW Std Deviation 47.8 H (36.4-46.3) fL Plt Count 208 (182-369) K/mm3 MPV 9.9 (9.4-12.3) fl Neut % (Auto) 77.0 H (34.0-71.1) % Lymph % (Auto) 12.7 L (19.3-51.7) % [place] % (Auto) 7.7 (4.7-12.5) % Eos % (Auto) 2.3 (0.7-5.8) Baso % (Auto) 0.2 (0.1-1.2) % Neut # (Auto) 6.81 H (1.56-6.13) K/mm3 Lymph # (Auto) 1.12 L (1.18-3.74) K/mm3 [place] # (Auto) 0.68 H (0.24-0.36) K/mm3 Eos # (Auto) 0.20 (0.04-0.36) K/mm3 Baso # (Auto) 0.02 (0.01-0.08) K/mm3 Manual Slide Review Abnormal smear Sodium (136-145) mEq/L Potassium (3.5-5.1) mEq/L Chloride (98-107) mEq/L Carbon Dioxide (21-32) mEq/L Anion Gap (5-15) BUN (7-18) mg/dL Creatinine (0.55-1.02) mg/dL Est Cr Clr Drug Dosing mL/min Estimated GFR (MDRD) (>60) mL/min BUN/Creatinine Ratio (14-18) Glucose (80-115) mg/dL POC Glucose 107 57 L (80-115) mg/dL Calcium (8.5-10.1) mg/dL Magnesium (1.8-2.4) mg/dl Total Bilirubin (0.2-1.0) mg/dL AST (15-37) U/L ALT (14-59) U/L Alkaline Phosphatase (46-116) U/L Total Protein (6.4-8.2) g/dl Albumin (3.4-5.0) g/dl Globulin gm/dL Albumin/Globulin Ratio (1-2) 02/01/20 02/01/20 02/01/20 Range/Units 06:25 06:51 12:05 WBC (3.98-10.04) K/mm3 RBC (3.98-5.22) M/mm3 Hgb (11.2-15.7) gm/dl Hct (34.1-44.9) % MCV (79.4-94.8) fl MCH (25.6-32.2) pg MCHC (32.2-35.5) g/dl RDW Std Deviation (36.4-46.3) fL Plt Count (182-369) K/mm3 MPV (9.4-12.3) fl Neut % (Auto) (34.0-71.1) % Lymph % (Auto) (19.3-51.7) % [place] % (Auto) (4.7-12.5) % Eos % (Auto) (0.7-5.8) Baso % (Auto) (0.1-1.2) % Neut # (Auto) (1.56-6.13) K/mm3 Lymph # (Auto) (1.18-3.74) K/mm3 [place] # (Auto) (0.24-0.36) K/mm3 Eos # (Auto) (0.04-0.36) K/mm3 Baso # (Auto) (0.01-0.08) K/mm3 Manual Slide Review Sodium 142 (136-145) mEq/L Potassium 4.2 (3.5-5.1) mEq/L Chloride 104 (98-107) mEq/L Carbon Dioxide 32 (21-32) mEq/L Anion Gap 10.2 (5-15) BUN 13 (7-18) mg/dL Creatinine 0.8 (0.55-1.02) mg/dL Est Cr Clr Drug Dosing 56.93 mL/min Estimated GFR (MDRD) > 60 (>60) mL/min BUN/Creatinine Ratio 16.3 (14-18) Glucose 63 L (80-115) mg/dL POC Glucose 92 101 (80-115) mg/dL Calcium 8.7 (8.5-10.1) mg/dL Magnesium 2.6 H (1.8-2.4) mg/dl Total Bilirubin 0.3 (0.2-1.0) mg/dL AST 75 H (15-37) U/L ALT 75 H (14-59) U/L Alkaline Phosphatase 131 H (46-116) U/L Total Protein 6.2 L (6.4-8.2) g/dl Albumin 3.0 L (3.4-5.0) g/dl Globulin 3.2 gm/dL Albumin/Globulin Ratio 0.9 L (1-2) /14/20 Range/Units 17:32 WBC (3.98-10.04) K/mm3 RBC (3.98-5.22) M/mm3 Hgb (11.2-15.7) gm/dl Hct (34.1-44.9) % MCV (79.4-94.8) fl MCH (25.6-32.2) pg MCHC (32.2-35.5) g/dl RDW Std Deviation (36.4-46.3) fL Plt Count (182-369) K/mm3 MPV (9.4-12.3) fl Neut % (Auto) (34.0-71.1) % Lymph % (Auto) (19.3-51.7) % [place] % (Auto) (4.7-12.5) % Eos % (Auto) (0.7-5.8) Baso % (Auto) (0.1-1.2) % Neut # (Auto) (1.56-6.13) K/mm3 Lymph # (Auto) (1.18-3.74) K/mm3 [place] # (Auto) (0.24-0.36) K/mm3 Eos # (Auto) (0.04-0.36) K/mm3 Baso # (Auto) (0.01-0.08) K/mm3 Manual Slide Review Sodium (136-145) mEq/L Potassium (3.5-5.1) mEq/L Chloride (98-107) mEq/L Carbon Dioxide (21-32) mEq/L Anion Gap (5-15) BUN (7-18) mg/dL Creatinine (0.55-1.02) mg/dL Est Cr Clr Drug Dosing mL/min Estimated GFR (MDRD) (>60) mL/min BUN/Creatinine Ratio (14-18) Glucose (80-115) mg/dL POC Glucose 93 (80-115) mg/dL Calcium (8.5-10.1) mg/dL Magnesium (1.8-2.4) mg/dl Total Bilirubin (0.2-1.0) mg/dL AST (15-37) U/L ALT (14-59) U/L Alkaline Phosphatase (46-116) U/L Total Protein (6.4-8.2) g/dl Albumin (3.4-5.0) g/dl Globulin gm/dL Albumin/Globulin Ratio (1-2) [place] Results Last 24 Hours: Microbiology 01/31/20 06:50 Aerobic Blood Culture - Preliminary Blood - Venous NO GROWTH AFTER 1 DAY Anaerobic Blood Culture - Preliminary NO GROWTH AFTER 1 DAY 01/31/20 06:45 Aerobic Blood Culture - Preliminary Blood - Venous - Lab Draw NO GROWTH AFTER 1 DAY Anaerobic Blood Culture - Preliminary NO GROWTH AFTER 1 DAY Med Orders - Current: Current Medications Acetaminophen (Tylenol) 650 mg PO Q4H PRN PRN Reason: Pain (Mild 1-3)/fever Last Admin: 01/31/20 13:16 Dose: 650 mg Documented by: Hydrocodone Bitart/Acetaminophen ([place] 325-5 Mg) 1 - 2 tab PO Q6H PRN PRN Reason: Pain Last Admin: 02/01/20 16:30 Dose: 2 tab Documented by: Aspirin (Aspirin) 81 mg PO DAILY [facility] Last Admin: 02/01/20 08:19 Dose: 81 mg Documented by: Carvedilol (Coreg) 25 mg PO BID [facility] Last Admin: 02/01/20 08:18 Dose: 25 mg Documented by: Cyclobenzaprine HCl (Flexeril) 10 mg PO TID PRN PRN Reason: Pain Dextrose/Water (Dextrose 50% In Water) 50 ml IV ASDIRECTED PRN PRN Reason: Hypoglycemia Docusate Sodium (Colace) 100 mg PO BID PRN PRN Reason: Constipation Docusate Sodium (Colace) 100 mg PO DAILY PRN PRN Reason: Constipation Enoxaparin Sodium (Lovenox) 40 mg SUBCUT Q12H [facility] Last Admin: 02/01/20 10:13 Dose: 40 mg Documented by: Fentanyl (Duragesic) 25 mcg TOP Q72H [facility] Last Admin: 01/31/20 18:35 Dose: 25 mcg Documented by: Fluticasone Propionate (Flonase) 0 gm NASBOTH BEDTIME [facility] Last Admin: 01/31/20 20:55 Dose: 2 sprays Documented by: Gabapentin (Neurontin) 600 mg PO TID [facility] Last Admin: 02/01/20 15:05 Dose: 600 mg Documented by: Gabapentin (Neurontin) 200 mg PO TID [facility] Last Admin: 02/01/20 15:04 Dose: 200 mg Documented by: Hydromorphone HCl (Dilaudid) 0.5 mg IVPUSH Q2H PRN PRN Reason: Pain (severe 7-10) Azithromycin 500 mg/ Sodium (Chloride) 250 mls @ 250 mls/hr IV Q24H [facility] Last Admin: 02/01/20 16:32 Dose: 250 mls/hr Documented by: Ceftriaxone Sodium 2 gm/ (Sodium Chloride) 100 mls @ 200 mls/hr IV Q24H [facility] Last Admin: 02/01/20 15:05 Dose: 200 mls/hr Documented by: Ibuprofen (Motrin) 800 mg PO Q6H PRN PRN Reason: Pain (moderate 4-6) Insulin Glargine (Lantus) 50 unit SUBCUT DAILY [facility] Last Admin: 02/01/20 12:17 Dose: 50 units Documented by: Insulin Human Lispro (Humalog) 0 unit SUBCUT QIDACANDBED [facility]; Protocol Last Admin: 02/01/20 18:11 Dose: Not Given Documented by: Mirtazapine (Remeron) 15 mg PO BEDTIME [facility] Last Admin: 01/31/20 20:57 Dose: 15 mg Documented by: Miscellaneous Information (Remove Patch) 0 ea TRDERM Q72H [facility] Last Admin: 01/31/20 18:36 Dose: 1 ea Documented by: Mupirocin (Bactroban Oint) 0 gm TOP BID [facility] Last Admin: 02/01/20 08:25 Dose: Not Given Documented by: Ondansetron HCl (Zofran) 4 mg IV Q4H PRN PRN Reason: Nausea/Vomiting Ondansetron HCl (Zofran Odt) 4 mg PO Q6H PRN PRN Reason: Nausea\vomiting Pantoprazole Sodium (Protonix) 40 mg PO BID [facility] Last Admin: 02/01/20 08:19 Dose: 40 mg Documented by: Potassium Chloride (Klor-Con M20) 20 meq PO TID [facility] Last Admin: 02/01/20 15:05 Dose: 20 meq Documented by: Ropinirole HCl (Requip) 1 mg PO QID [facility] Last Admin: 02/01/20 16:30 Dose: 1 mg Documented by: Rosuvastatin Calcium (Crestor) 10 mg PO DAILY [facility] Last Admin: 02/01/20 08:19 Dose: 10 mg Documented by: Sodium Chloride (Saline Flush) 10 ml FLUSH ASDIRECTED PRN PRN Reason: Keep Vein Open Torsemide (Demadex) 10 mg PO DAILY@1200 [facility] Last Admin: 11/14/20 12:18 Dose: 10 mg Documented by: Torsemide (Demadex) 20 mg PO DAILY@0700 [facility] Last Admin: 02/01/20 06:36 Dose: 20 mg Documented by: Trolamine Salicylate (Aspercreme 10%) 0 gm TOP ASDIRECTED PRN PRN Reason: Pain Venlafaxine HCl (Effexor Xr) 300 mg PO DAILY [facility] Last Admin: 02/01/20 08:18 Dose: 300 mg Documented by: Discontinued Medications Hydromorphone HCl (Dilaudid) 0.5 mg IVPUSH ONETIME ONE Stop: 01/31/20 06:13 Last Admin: 01/31/20 06:33 Dose: 0.5 mg Documented by: Azithromycin 500 mg/ Sodium (Chloride) 250 mls @ 250 mls/hr IV ONETIME ONE Stop: 01/31/20 10:00 Last Admin: 01/31/20 09:23 Dose: 250 mls/hr Documented by: Ceftriaxone Sodium 2 gm/ (Sodium Chloride) 100 mls @ 200 mls/hr IV ONETIME ONE Stop: 01/31/20 09:31 Last Admin: 01/31/20 09:25 Dose: 200 mls/hr Documented by: Insulin Glargine (Lantus) 60 unit SUBCUT BEDTIME [facility] Insulin Glargine (Lantus) 60 unit SUBCUT DAILY [facility] Last Admin: 02/01/20 10:08 Dose: Not Given Documented by: Ondansetron HCl (Zofran) 4 mg IVPUSH ONETIME ONE Stop: 01/31/20 06:13 Last Admin: 01/31/20 06:33 Dose: 4 mg Documented by: Ropinirole HCl (Requip) 1 mg PO TID [facility] Last Admin: 01/31/20 20:57 Dose: Not Given Documented by: Ropinirole HCl (Requip) 1 mg PO BEDTIME [facility] Last Admin: 01/31/20 20:57 Dose: 1 mg Documented by: - Exam Quality Assessment: Supplemental Oxygen General: Alert, Oriented HEENT: Pupils Equal, Mucous Membr. Moist/[place] Neck: Supple Lungs: Clear to Auscultation, Normal Respiratory Effort Cardiovascular: Regular Rate, Regular Rhythm GI/Abdominal Exam: Normal Bowel Sounds, Soft, Non-Tender, No Organomegaly, No Distention, No Abnormal Bruit Extremities: Normal Inspection, No Pedal Edema, Normal Capillary Refill Skin: Warm, Dry, Intact Psy/Mental Status: Alert, Normal Affect, Normal Mood Sepsis Event Note - Evaluation Sepsis Screening Result: No Definite Risk - Focused Exam Vital Signs: Vital Signs Temp Pulse Resp BP Pulse Ox 02/01/20 15:48 98.1 F 61 20 145/71 H 98 02/01/20 15:02 61 98 02/01/20 13:49 59 L 97 02/01/20 13:47 63 94 L 02/01/20 12:52 59 L 97 02/01/20 12:25 62 100 02/01/20 12:13 98.1 F 59 L 20 147/82 H 98 02/01/20 08:18 61 140/68 02/01/20 08:17 140/68 - Problem List & Annotations (1) Pneumonia SNOMED Code(s): 951960007 Code(s): J18.9 - PNEUMONIA, UNSPECIFIED ORGANISM Status: Acute Priority: High Current Visit: Yes Qualifiers: Pneumonia type: due to unspecified organism Laterality: bilateral Lung location: lower lobe of lung Qualified Code(s): J18.9 - Pneumonia, unspecified organism (2) CHF (congestive heart failure) SNOMED Code(s): 51469562 Code(s): I50.9 - HEART FAILURE, UNSPECIFIED Status: Chronic Priority: H igh Current Visit: Yes Qualifiers: Heart failure type: unspecified Heart failure chronicity: unspecified Qualified Code(s): I50.9 - Heart failure, unspecified (3) Diabetes SNOMED Code(s): 54629048 Code(s): E11.9 - TYPE 2 DIABETES MELLITUS WITHOUT COMPLICATIONS Status: Acute Current Visit: Yes - Problem List Review Problem List Initiated/Reviewed/Updated: Yes - My Orders Last 24 Hours: My Active Orders 01/31/20 21:00 Fluticasone Propionate [Flonase] 0 gm NASBOTH BEDTIME Mirtazapine [Remeron] 15 mg PO BEDTIME Mupirocin Oint [Bactroban Oint] 0 gm TOP BID Pantoprazole [ProTONIX] 40 mg PO BID Potassium Chloride [Klor-Con M20] 20 meq PO TID carvediloL [Coreg] 25 mg PO BID 02/01/20 07:00 Torsemide [Demadex] 20 mg PO DAILY@0700 02/01/20 09:00 Aspirin 81 mg PO DAILY Rosuvastatin [Crestor] 10 mg PO DAILY Venlafaxine [Effexor XR] 300 mg PO DAILY rOPINIRole [Requip] 1 mg PO QID 02/01/20 11:15 Insulin Glarg,Human.Rec.Analog [LantUS] 50 unit SUBCUT DAILY 02/01/20 12:00 Torsemide [Demadex] 10 mg PO DAILY@1200 - Plan Plan:: Assessment Pneumonia * Patient is significantly improving. She is still on oxygen but weaning rapidly. White count is down to 8.8. * Chest x-ray reveals new slight diffuse bilateral interstitial prominence could be due to edema or minimal infiltrate. Cardiomegaly with mild vascular congestion. * Sepsis protocol was initiated and followed. * Patient is diabetic and only takes Toujeo. States her blood sugar over the course of the last couple of days have been in the 130s. She checks them twice daily. * Patient's blood sugar was 54 when she got to the medical floor. Upon recheck after eating lunch her blood sugar is now 81. PLAN: * Rocephin 2 g IV daily * Decrease glargine to 50 units in the morning * Recheck labs in the a.m. * Monitor blood cultures for at least 24 hours before discharge * Continue to monitor vital signs and daily weight * Lovenox for DVT prophylaxis * PT and OT to eval and treat * Dietitian to consult * supervisor customer services and case management for discharge planning * Accu-Cheks 4 times daily before meals and at bedtime * Monitor daily weight and strict intake and output as patient has a history of CHF * Patient to wear her own CPAP at nighttime. * Incentive spirometer every 1 hour while awake * Patient is a full code. * Plan discharge tomorrow assuming she will be off oxygen and cultures are negative.
[2020-02-01] MEDS: Fluticasone Propionate Nasal Spray 16 GM Bottle NASBOTH SCH (21:00)
[2020-02-01] MEDS: Mirtazapine 15 MG Tab PO SCH (21:02)
[2020-02-02] MEDS: Torsemide 20 MG Tab PO SCH ×2 (06:39→13:37)
[2020-02-02] MEDS: Insulin Lispro 100 Units/ML 3 ML Vial SUBCUT SCH ×2 (07:37→13:37)
[2020-02-02] MEDS: Venlafaxine 75 MG Cap.ER PO SCH (09:26)
[2020-02-02] MEDS: Potassium Chloride 20 MEQ Tab.ER PO SCH (09:26)
[2020-02-02] MEDS: rOPINIRole 1 MG Tab PO SCH ×2 (09:26→13:37)
[2020-02-02] MEDS: Aspirin 81 MG Tab.Chew PO SCH (09:26)
[2020-02-02] MEDS: Pantoprazole 40 MG Tab.CR PO SCH (09:26)
[2020-02-02] MEDS: Gabapentin 100 MG Cap PO SCH (09:26)
[2020-02-02] MEDS: Gabapentin 600 MG Tab PO SCH (09:27)
[2020-02-02] MEDS: Rosuvastatin 10 MG Tab PO SCH (09:27)
[2020-02-02] MEDS: Mupirocin Oint 22 GM Tube TOP SCH (09:27)
[2020-02-02] MEDS: Enoxaparin 40 MG/0.4 ML Syringe SUBCUT SCH (09:27)
[2020-02-02] MEDS: Carvedilol 12.5 MG Tab PO SCH (09:28)
[2020-02-02] MEDS: Insulin Glarg,Human.Rec.Analog 100 Unit/ML SUBCUT SCH (10:43)
--- NOTE | 2020-02-02 11:15 | PCM.DCSUM1 ---
Discharge Summary - Hospital Course HPI Initial Comments: Ms. Ross is a pleasant 64-year-old woman who is now brought to the ED by EMS stating that she had some chills when she went to bed around 22:00 last night, but that she slept well. When she woke up this morning, however, she states that her cheeks felt warm, and she had lower back pain. She checked her temperature, finding that she had a fever. She acknowledges that she has chronic lower back pain, but that her pain at this morning was worse than usual. She also reports having rhinorrhea this morning. She reports having some dyspnea, both at rest and with exertion. No recent cough. No urinary symptoms. She did not take any [id number]-nfhrbbt or home remedies prior to coming to the ED. The patient states that she checks her blood glucose twice a day, with a normal Accu-Chek in the morning between 79 and 128, and a normal p.m. Accu-Chek in the 130s. She did not check her blood glucose at this morning. ED, the patient's initial BP is found to be elevated at 168/71, with tachypnea of 25 rpm, a fever of 101.6, saturating 94% on room air. Prior to last night, the patient denies having a recent fever, chills, sore throat, ear pain, nasal or sinus congestion, cough, dyspnea, chest pain, palpitations, nausea, vomiting, constipation, diarrhea, abdominal pain, urinary symptoms, recent weight gain or weight loss, recent bloody bowel movements or black bowel movements, recent joint aches, headaches, or rashes. Assessment/Plan Comment:: * 64-year-old female rapid onset of chills and fever last night before bed. * Vital signs in the ER reveal: Temp 101.7 Fahrenheit, pulse 80, respiratory rate 25, blood pressure 168/71, pulse ox 94% on room air. * Labs in the ED revealed WBC 22.41, platelet count 234, 89% neutrophil percentage potassium 3.5, AST 170, ALT 107, alk phos 146, troponin less than 0.017, C-reactive protein 5.0, D-dimer 1.51, lactic acid 1.0, BNP 460, Covid screen was negative, urinalysis was negative for infection, blood cultures x2 are pending. * Chest x-ray reveals new slight diffuse bilateral interstitial prominence could be due to edema or minimal infiltrate. Cardiomegaly with mild vascular congestion. * Sepsis protocol was initiated and followed. * Patient is diabetic and only takes Toujeo. States her blood sugar over the course of the last couple of days have been in the 130s. She checks them twice daily. * Patient's blood sugar was 54 when she got to the medical floor. Upon recheck after eating lunch her blood sugar is now 81. PLAN: * Rocephin 2 g IV daily * Recheck labs in the a.m. * Monitor blood cultures * Continue to monitor vital signs and daily weight * Lovenox for DVT prophylaxis * PT and OT to eval and treat * Dietitian to consult * business services director and case management for discharge planning * Accu-Cheks 4 times daily before meals and at bedtime * Monitor daily weight and strict intake and output as patient has a history of CHF * Patient to wear her own CPAP at nighttime. * Incentive spirometer every 1 hour while awake * Patient is a full code. Diagnosis: Stroke: No - Discharge Data Discharge Date: 02/02/20 Discharge Disposition: Home, Self-Care 01 Condition: Good - Referral to Home Health Primary Care Physician: PCP None - Discharge Diagnosis/Problem(s) (1) Pneumonia SNOMED Code(s): 737317688 ICD Code: J18.9 - PNEUMONIA, UNSPECIFIED ORGANISM Status: Acute Priority: High Qualifiers: Pneumonia type: due to unspecified organism Laterality: bilateral Lung location: lower lobe of lung Qualified Code(s): J18.9 - Pneumonia, unspecified organism (2) CHF (congestive heart failure) SNOMED Code(s): 18737540 ICD Code: I50.9 - HEART FAILURE, UNSPECIFIED Status: Chronic Priority: High Qualifiers: Heart failure type: unspecified Heart failure chronicity: unspecified Qualified Code(s): I50.9 - Heart failure, unspecified (3) Diabetes SNOMED Code(s): 11119108 ICD Code: E11.9 - TYPE 2 DIABETES MELLITUS WITHOUT COMPLICATIONS Status: Acute - Patient Summary/Data Consults: Consultations 01/31/20 09:50 Consult to Case Management/Oil Well Engineer [CONS] Routine Consult to Furnace Roaster [CONS] Routine Consult to Spiritual Care [CONS] Routine OT Evaluation and Treatment [CONS] Routine PT Evaluation and Treatment [CONS] Routine Respiratory Care Assess and Treatment [CONS] Routine Hospital Course: Patient was admitted and started on IV Rocephin and azithromycin. She had good response to antibiotics and she quickly was weaned from O2. Patient was weaned from her oxygen on day 3 and blood cultures were negative. She will be discharged on azithromycin 500 mg x 1 and Ceftin 500 mg twice daily for another 5 days to complete her course for community-acquired pneumonia. - Patient Instructions Diet: Heart Healthy Diet Driving: May Drive Today Showering/Bathing: May Shower Other/Special Instructions: Follow up with PCP next week. - Discharge Plan *PRESCRIPTION DRUG MONITORING PROGRAM REVIEWED*: No *COPY OF PRESCRIPTION DRUG MONITORING REPORT IN PATIENT SHRADDHA: No Prescriptions/Med Rec: Azithromycin 500 mg PO ONETIME #1 tablet Cefuroxime Axetil [Ceftin] 500 mg PO BID #10 tablet Home Medications: Home Meds Mirtazapine [Remeron] 15 mg PO DAILY 05/22/15 [History] Venlafaxine [Effexor XR] 300 mg PO DAILY 05/22/15 [History] atorvaSTATin [Lipitor] 40 mg PO DAILY 05/22/15 [History] Docusate Sodium [Colace] 100 mg PO DAILY PRN 10/02/18 [History] Fluticasone Propionate [Flonase] 2 spray NASBOTH DAILY 10/02/18 [History] Gabapentin [Neurontin] 800 mg PO TID 10/02/18 [History] Insulin Glargine,Hum.Rec.Anlog [Alfred Shah] 76 units SQ BEDTIME 10/02/18 [History] Trolamine Salicylate/Aloe Vera [Aspercreme 10% Cream] 1 dose TOP ASDIRECTED PRN 10/02/18 [History] fentaNYL [Duragesic] 25 mcg TOP Q72H 10/02/18 [History] Pantoprazole Sodium [Protonix] 40 mg PO BID 08/06/19 [History] Aspirin 81 mg PO DAILY 11/20/19 [History] Mupirocin Oint [Bactroban Oint] 1 dose TOP BID 11/20/19 [History] Potassium Chloride 20 meq PO TID 11/20/19 [History] Torsemide 10 mg PO 1200 11/20/19 [History] Torsemide 20 mg PO QAM 11/20/19 [History] carvediloL [Coreg] 25 mg PO BID 11/21/19 [History] Cyclobenzaprine [Flexeril] 10 mg PO TID PRN #20 tab 01/19/20 [Rx] Ondansetron [Zofran ODT] 4 mg PO Q6H PRN #20 tab.dis 01/19/20 [Rx] Acetaminophen/HYDROcodone [Puryear 325-5 MG] 1 - 2 tab PO Q6H PRN 01/31/20 [History] rOPINIRole [Requip] 1 mg PO QID 02/01/20 [History] Azithromycin 500 mg PO ONETIME #1 tablet 02/02/20 [Rx] Cefuroxime Axetil [Ceftin] 500 mg PO BID #10 tablet 02/02/20 [Rx] Oxygen Therapy Mode: Room Air Patient Handouts: Heart Failure, Self Care, Living With Heart Failure, Heart Failure and Exercise, Community-Acquired Pneumonia, Adult, [id number] Referrals: Bill Quiros MD [Physician] - (Call clinic on Monday to make a follow-up with this week.) - Discharge Summary/Plan Comment DC Time >30 min.: Yes Discharge Summary/Plan Comment: Finish all antibiotics and follow-up with your primary care provider next week. - General Info Date of Service: 02/02/20 Admission Dx/Problem (Free Text: Admission Diagnosis/Problem Admission Diagnosis/Problem Pneumonia Subjective Update: Patient is doing well today. She is off of her oxygen. No fever or chills. White count is normal. Functional Status: Reports: Pain Controlled - Review of Systems General: Reports: No Symptoms HEENT: Reports: No Symptoms Pulmonary: Reports: No Symptoms Cardiovascular: Reports: No Symptoms Gastrointestinal: Reports: No Symptoms Musculoskeletal: Reports: No Symptoms - Patient Data Vitals - Most Recent: Last Vital Signs Temp 98.4 F 02/02/20 07:57 Pulse 62 02/02/20 09:28 Resp 16 02/02/20 07:57 BP 140/87 02/02/20 09:28 Pulse Ox 94 L 02/02/20 07:57 Weight - Most Recent: 239 lb 8 oz I&O - Last 24 hours: Intake & Output 02/01/20 02/02/20 02/02/20 22:59 06:59 14:59 Intake Total 900 300 300 Output Total 1800 775 Balance -900 -475 300 Lab Results - Last 24 hrs: Laboratory Results - last 24 hr 02/01/20 02/01/20 02/01/20 Range/Units 12:05 17:32 20:27 WBC (3.98-10.04) K/mm3 RBC (3.98-5.22) M/mm3 Hgb (11.2-15.7) gm/dl Hct (34.1-44.9) % MCV (79.4-94.8) fl MCH (25.6-32.2) pg MCHC (32.2-35.5) g/dl RDW Std Deviation (36.4-46.3) fL Plt Count (182-369) K/mm3 MPV (9.4-12.3) fl Neut % (Auto) (34.0-71.1) % Lymph % (Auto) (19.3-51.7) % [place] % (Auto) (4.7-12.5) % Eos % (Auto) (0.7-5.8) Baso % (Auto) (0.1-1.2) % Neut # (Auto) (1.56-6.13) K/mm3 Lymph # (Auto) (1.18-3.74) K/mm3 [place] # (Auto) (0.24-0.36) K/mm3 Eos # (Auto) (0.04-0.36) K/mm3 Baso # (Auto) (0.01-0.08) K/mm3 Manual Slide Review Sodium (136-145) mEq/L Potassium (3.5-5.1) mEq/L Chloride (98-107) mEq/L Carbon Dioxide (21-32) mEq/L Anion Gap (5-15) BUN (7-18) mg/dL Creatinine (0.55-1.02) mg/dL Est Cr Clr Drug Dosing mL/min Estimated GFR (MDRD) (>60) mL/min BUN/Creatinine Ratio (14-18) Glucose (80-115) mg/dL POC Glucose 101 93 146 H (80-115) mg/dL Calcium (8.5-10.1) mg/dL Magnesium (1.8-2.4) mg/dl Total Bilirubin (0.2-1.0) mg/dL AST (15-37) U/L ALT (14-59) U/L Alkaline Phosphatase (46-116) U/L Total Protein (6.4-8.2) g/dl Albumin (3.4-5.0) g/dl Globulin gm/dL Albumin/Globulin Ratio (1-2) 02/02/20 02/02/20 02/02/20 Range/Units 05:10 05:10 06:31 WBC 7.43 (3.98-10.04) K/mm3 RBC 3.41 L (3.98-5.22) M/mm3 Hgb 9.6 L (11.2-15.7) gm/dl Hct 33.2 L (34.1-44.9) % MCV 97.4 H (79.4-94.8) fl MCH 28.2 (25.6-32.2) pg MCHC 28.9 L (32.2-35.5) g/dl RDW Std Deviation 48.1 H (36.4-46.3) fL Plt Count 205 (182-369) K/mm3 MPV 10.3 (9.4-12.3) fl Neut % (Auto) 67.7 (34.0-71.1) % Lymph % (Auto) 18.7 L (19.3-51.7) % [place] % (Auto) 10.0 (4.7-12.5) % Eos % (Auto) 3.2 (0.7-5.8) Baso % (Auto) 0.3 (0.1-1.2) % Neut # (Auto) 5.03 (1.56-6.13) K/mm3 Lymph # (Auto) 1.39 (1.18-3.74) K/mm3 [place] # (Auto) 0.74 H (0.24-0.36) K/mm3 Eos # (Auto) 0.24 (0.04-0.36) K/mm3 Baso # (Auto) 0.02 (0.01-0.08) K/mm3 Manual Slide Review Abnormal smear Sodium 143 (136-145) mEq/L Potassium 3.4 L (3.5-5.1) mEq/L Chloride 104 (98-107) mEq/L Carbon Dioxide 33 H (21-32) mEq/L Anion Gap 9.4 (5-15) BUN 18 (7-18) mg/dL Creatinine 0.9 (0.55-1.02) mg/dL Est Cr Clr Drug Dosing 50.60 mL/min Estimated GFR (MDRD) > 60 (>60) mL/min BUN/Creatinine Ratio 20.0 H (14-18) Glucose 63 L (80-115) mg/dL POC Glucose 66 L (80-115) mg/dL Calcium 8.8 (8.5-10.1) mg/dL Magnesium 2.5 H (1.8-2.4) mg/dl Total Bilirubin 0.2 (0.2-1.0) mg/dL AST 39 H (15-37) U/L ALT 64 H (14-59) U/L Alkaline Phosphatase 132 H (46-116) U/L Total Protein 6.5 (6.4-8.2) g/dl Albumin 3.1 L (3.4-5.0) g/dl Globulin 3.4 gm/dL Albumin/Globulin Ratio 0.9 L (1-2) 02/02/20 Range/Units 07:05 WBC (3.98-10.04) K/mm3 RBC (3.98-5.22) M/mm3 Hgb (11.2-15.7) gm/dl Hct (34.1-44.9) % MCV (79.4-94.8) fl MCH (25.6-32.2) pg MCHC (32.2-35.5) g/dl RDW Std Deviation (36.4-46.3) fL Plt Count (182-369) K/mm3 MPV (9.4-12.3) fl Neut % (Auto) (34.0-71.1) % Lymph % (Auto) (19.3-51.7) % [place] % (Auto) (4.7-12.5) % Eos % (Auto) (0.7-5.8) Baso % (Auto) (0.1-1.2) % Neut # (Auto) (1.56-6.13) K/mm3 Lymph # (Auto) (1.18-3.74) K/mm3 [place] # (Auto) (0.24-0.36) K/mm3 Eos # (Auto) (0.04-0.36) K/mm3 Baso # (Auto) (0.01-0.08) K/mm3 Manual Slide Review Sodium (136-145) mEq/L Potassium (3.5-5.1) mEq/L Chloride (98-107) mEq/L Carbon Dioxide (21-32) mEq/L Anion Gap (5-15) BUN (7-18) mg/dL Creatinine (0.55-1.02) mg/dL Est Cr Clr Drug Dosing mL/min Estimated GFR (MDRD) (>60) mL/min BUN/Creatinine Ratio (14-18) Glucose (80-115) mg/dL POC Glucose 116 H (80-115) mg/dL Calcium (8.5-10.1) mg/dL Magnesium (1.8-2.4) mg/dl Total Bilirubin (0.2-1.0) mg/dL AST (15-37) U/L ALT (14-59) U/L Alkaline Phosphatase (46-116) U/L Total Protein (6.4-8.2) g/dl Albumin (3.4-5.0) g/dl Globulin gm/dL Albumin/Globulin Ratio (1-2) NOREEN Results - Last 24 hrs: Microbiology 01/31/20 06:50 Aerobic Blood Culture - Preliminary Blood - Venous NO GROWTH AFTER 2 DAYS Anaerobic Blood Culture - Preliminary NO GROWTH AFTER 2 DAYS 01/31/20 06:45 Aerobic Blood Culture - Preliminary Blood - Venous - Lab Draw NO GROWTH AFTER 2 DAYS Anaerobic Blood Culture - Preliminary NO GROWTH AFTER 2 DAYS Med Orders - Current: Current Medications Acetaminophen (Tylenol) 650 mg PO Q4H PRN PRN Reason: Pain (Mild 1-3)/fever Last Admin: 01/31/20 13:16 Dose: 650 mg Documented by: Hydrocodone Bitart/Acetaminophen (Puryear 325-5 Mg) 1 - 2 tab PO Q6H PRN PRN Reason: Pain Last Admin: 02/01/20 16:30 Dose: 2 tab Documented by: Aspirin (Aspirin) 81 mg PO DAILY [facility] Last Admin: 02/02/20 09:26 Dose: 81 mg Documented by: Carvedilol (Coreg) 25 mg PO BID [facility] Last Admin: 02/02/20 09:28 Dose: 25 mg Documented by: Cyclobenzaprine HCl (Flexeril) 10 mg PO TID PRN PRN Reason: Pain Dextrose/Water (Dextrose 50% In Water) 50 ml IV ASDIRECTED PRN PRN Reason: Hypoglycemia Docusate Sodium (Colace) 100 mg PO BID PRN PRN Reason: Constipation Docusate Sodium (Colace) 100 mg PO DAILY PRN PRN Reason: Constipation Enoxaparin Sodium (Lovenox) 40 mg SUBCUT Q12H [facility] Last Admin: 02/02/20 09:27 Dose: 40 mg Documented by: Fentanyl (Duragesic) 25 mcg TOP Q72H [facility] Last Admin: 01/31/20 18:35 Dose: 25 mcg Documented by: Fluticasone Propionate (Flonase) 0 gm NASBOTH BEDTIME [facility] Last Admin: 02/01/20 21:00 Dose: 2 sprays Documented by: Gabapentin (Neurontin) 600 mg PO TID [facility] Last Admin: 02/02/20 09:27 Dose: 600 mg Documented by: Gabapentin (Neurontin) 200 mg PO TID [facility] Last Admin: 02/02/20 09:26 Dose: 200 mg Documented by: Hydromorphone HCl (Dilaudid) 0.5 mg IVPUSH Q2H PRN PRN Reason: Pain (severe 7-10) Azithromycin 500 mg/ Sodium (Chloride) 250 mls @ 250 mls/hr IV Q24H [facility] Last Admin: 02/01/20 16:32 Dose: 250 mls/hr Documented by: Ceftriaxone Sodium 2 gm/ (Sodium Chloride) 100 mls @ 200 mls/hr IV Q24H [facility] Last Admin: 02/01/20 15:05 Dose: 200 mls/hr Documented by: Ibuprofen (Motrin) 800 mg PO Q6H PRN PRN Reason: Pain (moderate 4-6) Insulin Glargine (Lantus) 50 unit SUBCUT DAILY [facility] Last Admin: 02/02/20 10:43 Dose: Not Given Documented by: Insulin Human Lispro (Humalog) 0 unit SUBCUT QIDACANDBED [facility]; Protocol Last Admin: 02/02/20 07:37 Dose: Not Given Documented by: Mirtazapine (Remeron) 15 mg PO BEDTIME [facility] Last Admin: 02/01/20 21:02 Dose: 15 mg Documented by: Miscellaneous Information (Remove Patch) 0 ea TRDERM Q72H [facility] Last Admin: 01/31/20 18:36 Dose: 1 ea Documented by: Mupirocin (Bactroban Oint) 0 gm TOP BID [facility] Last Admin: 02/02/20 09:27 Dose: Not Given Documented by: Ondansetron HCl (Zofran) 4 mg IV Q4H PRN PRN Reason: Nausea/Vomiting Ondansetron HCl (Zofran Odt) 4 mg PO Q6H PRN PRN Reason: Nausea\vomiting Pantoprazole Sodium (Protonix) 40 mg PO BID [facility] Last Admin: 02/02/20 09:26 Dose: 40 mg Documented by: Potassium Chloride (Klor-Con M20) 20 meq PO TID [facility] Last Admin: 02/02/20 09:26 Dose: 20 meq Documented by: Ropinirole HCl (Requip) 1 mg PO QID [facility] Last Admin: 02/02/20 09:26 Dose: 1 mg Documented by: Rosuvastatin Calcium (Crestor) 10 mg PO DAILY [facility] Last Admin: 02/02/20 09:27 Dose: 10 mg Documented by: Sodium Chloride (Saline Flush) 10 ml FLUSH ASDIRECTED PRN PRN Reason: Keep Vein Open Torsemide (Demadex) 10 mg PO DAILY@1200 [facility] Last Admin: 02/01/20 12:18 Dose: 10 mg Documented by: Torsemide (Demadex) 20 mg PO DAILY@0700 [facility] Last Admin: 02/02/20 06:39 Dose: 20 mg Documented by: Trolamine Salicylate (Aspercreme 10%) 0 gm TOP ASDIRECTED PRN PRN Reason: Pain Venlafaxine HCl (Effexor Xr) 300 mg PO DAILY [facility] Last Admin: 02/02/20 09:26 Dose: 300 mg Documented by: Discontinued Medications Hydromorphone HCl (Dilaudid) 0.5 mg IVPUSH ONETIME ONE Stop: 01/31/20 06:13 Last Admin: 01/31/20 06:33 Dose: 0.5 mg Documented by: Azithromycin 500 mg/ Sodium (Chloride) 250 mls @ 250 mls/hr IV ONETIME ONE Stop: 01/31/20 10:00 Last Admin: 01/31/20 09:23 Dose: 250 mls/hr Documented by: Ceftriaxone Sodium 2 gm/ (Sodium Chloride) 100 mls @ 200 mls/hr IV ONETIME ONE Stop: 01/31/20 09:31 Last Admin: 01/31/20 09:25 Dose: 200 mls/hr Documented by: Insulin Glargine (Lantus) 60 unit SUBCUT BEDTIME [facility] Insulin Glargine (Lantus) 60 unit SUBCUT DAILY [facility] Last Admin: 02/01/20 10:08 Dose: Not Given Documented by: Ondansetron HCl (Zofran) 4 mg IVPUSH ONETIME ONE Stop: 01/31/20 06:13 Last Admin: 01/31/20 06:33 Dose: 4 mg Documented by: Ropinirole HCl (Requip) 1 mg PO TID [facility] Last Admin: 01/31/20 20:57 Dose: Not Given Documented by: Ropinirole HCl (Requip) 1 mg PO BEDTIME [facility] Last Admin: 01/31/20 20:57 Dose: 1 mg Documented by: - Exam Quality Assessment: Denies: Supplemental Oxygen General: Reports: Alert, Oriented HEENT: Reports: Pupils Equal, Mucous Membr. Moist/[place] Neck: Reports: Supple Lungs: Reports: Clear to Auscultation, Normal Respiratory Effort Cardiovascular: Reports: Regular Rate, Regular Rhythm GI/Abdominal Exam: Normal Bowel Sounds, Soft, Non-Tender, No Distention Extremities: Normal Inspection, Normal Range of Motion, No Pedal Edema Skin: Reports: Warm, Dry, Intact Neurological: Reports: No New Focal Deficit Psy/Mental Status: Reports: Alert, Normal Affect, Normal Mood
[2020-02-02 12:22] VITALS: BP 149/78; PULSE 58
== END 2020-02-02 12:33 | disposition home or self-care (01) | DRG 871 ==
LOC: JD.ED 05:37 → JD.MS 09:51
PROVIDERS: ADMIT Family Medicine; ATTEND Family Medicine
DX: A41.9 Sepsis, unspecified organism (principal); J18.9 Pneumonia, unspecified organism; I50.9 Heart failure, unspecified; Z20.828 Contact with and (suspected) exposure to other viral communicable diseases; J34.89 Other specified disorders of nose and nasal sinuses; E78.00 Pure hypercholesterolemia, unspecified; I25.2 Old myocardial infarction; I11.0 Hypertensive heart disease with heart failure; K21.9 Gastro-esophageal reflux disease without esophagitis; G47.30 Sleep apnea, unspecified; J45.909 Unspecified asthma, uncomplicated; R32 Unspecified urinary incontinence; E11.40 Type 2 diabetes mellitus with diabetic neuropathy, unspecified; E66.9 Obesity, unspecified; K59.09 Other constipation; F41.9 Anxiety disorder, unspecified; F32.9 Major depressive disorder, single episode, unspecified; D64.9 Anemia, unspecified; G89.29 Other chronic pain; Z88.6 Allergy status to analgesic agent; E11.42 Type 2 diabetes mellitus with diabetic polyneuropathy; Z79.4 Long term (current) use of insulin; H54.7 Unspecified visual loss; E11.51 Type 2 diabetes mellitus with diabetic peripheral angiopathy without gangrene; M54.40 Lumbago with sciatica, unspecified side; Z88.0 Allergy status to penicillin; Z88.1 Allergy status to other antibiotic agents; Z88.5 Allergy status to narcotic agent; Z88.8 Allergy status to other drugs, medicaments and biological substances; Z79.899 Other long term (current) drug therapy; Z79.82 Long term (current) use of aspirin; Z85.51 Personal history of malignant neoplasm of bladder; Z98.890 Other specified postprocedural states; Z90.710 Acquired absence of both cervix and uterus
CPT/HCPCS: 36415; 71046; 80053; 81001; 83605; 83735; 83880; 84484; 85007; 85027; 85379; 86140; 87040 ×2; 87804 ×2; 93005; J0456; J0696; J1170; J2405; J7050 ×2; U0002; 82962; 85025; 93010; 94761; 96365; 96375; 97162-GP; 99222; 99231; 99239; 99285; 99285-25; A9270-GY; J1650; J1815-GY

== ENCOUNTER 2020-08-16 15:21 | Emergency (ER) | payer MEDICARE, BC ==
[2020-08-16 15:44] VITALS: BP 145/62; PULSE 87
[2020-08-16] MEDS ORDERED: Acetaminophen/HYDROcodone 325-5 MG Tab PO ONE (16:03)
[2020-08-16] MEDS ORDERED: Ketorolac 60 MG/2 ML SDV IM ONE (16:06)
--- NOTE | 2020-08-16 16:15 | EDM.PDOC ---
ED HPI GENERAL MEDICAL PROBLEM - General Chief Complaint: Back Pain or Injury Stated Complaint: LOWER BACK PAIN Time Seen by Provider: 08/16/20 15:45 Source of Information: Reports: Patient, RN Notes Reviewed History Limitations: Reports: No Limitations - History of Present Illness INITIAL COMMENTS - FREE TEXT/NARRATIVE: Patient is a 65-year-old female presenting to the emergency department with complaints of worsening of her chronic low back pain. She reports that she had a stress test done about 1 week ago. This test required her to lay on her back for an extended period of time. Reports that she told the provider that she would not build tolerate this, however she proceeded with the testing anyway. Since that time she has been experiencing intense worsening of pain in her low back. She had MRI done approximately 4 weeks ago and she is scheduled to have spinal fusion surgery with Dr. Hernandez in [place] pending results of her stress test. She is currently on a 25 mcg fentanyl patch as well as hydrocodone 5/325 every 4 hours and Flexeril 10 mg every 8 hours as needed. She changed her fentanyl patch today. Last dose of hydrocodone and Flexeril was approximately 2 hours prior to coming to ER. She reports as long as she is not moving she does well, however any movement since intense/sharp/spasming pain into her low back. She is had no recent falls. Denies any bowel or bladder dysfunction. Left Lower Back Pain Score (Numeric/FACES): 10 - Related Data Allergies Allergy/AdvReac Type Severity Reaction Status Date / Time esomeprazole magnesium Allergy Severe Edema Verified 08/16/20 15:31 [From Vimovo] esomeprazole [From Nexium] Allergy Swelling Verified 08/16/20 15:31 naproxen Allergy Edema Verified 08/16/20 15:31 sitagliptin Allergy Shortness Verified 08/16/20 15:31 of Breath amoxicillin AdvReac Dizziness Verified 08/16/20 15:31 cefdinir AdvReac Diarrhea Verified 08/16/20 15:31 clindamycin AdvReac Blurred Verified 08/16/20 15:31 Vision duloxetine AdvReac Delusions Verified 08/16/20 15:31 levofloxacin [From Levaquin] AdvReac Insomnia Verified 08/16/20 15:31 morphine AdvReac Tachycardia Verified 08/16/20 15:31 rivaroxaban [From Xarelto] AdvReac Change Verified 08/16/20 15:31 Mental Status Home Meds: Home Meds Mirtazapine [Remeron] 15 mg PO DAILY 05/22/15 [History] Venlafaxine [Effexor XR] 300 mg PO DAILY 05/22/15 [History] atorvaSTATin [Lipitor] 40 mg PO DAILY 05/22/15 [History] Docusate Sodium [Colace] 100 mg PO DAILY PRN 10/02/18 [History] Fluticasone Propionate [Flonase] 2 spray NASBOTH DAILY 10/02/18 [History] Gabapentin [Neurontin] 800 mg PO TID 10/02/18 [History] Insulin Glargine,Hum.Rec.Anlog [Touchanoo Solostar] 76 units SQ BEDTIME 10/02/18 [History] Trolamine Salicylate/Aloe Vera [Aspercreme 10% Cream] 1 dose TOP ASDIRECTED PRN 10/02/18 [History] fentaNYL [Duragesic] 25 mcg TOP Q72H 10/02/18 [History] Pantoprazole Sodium [Protonix] 40 mg PO BID 08/06/19 [History] Aspirin 81 mg PO DAILY 11/20/19 [History] Mupirocin Oint [Bactroban Oint] 1 dose TOP BID 11/20/19 [History] Potassium Chloride 20 meq PO TID 11/20/19 [History] Torsemide 20 mg PO BID 11/20/19 [History] carvediloL [Coreg] 25 mg PO BID 11/21/19 [History] Cyclobenzaprine [Flexeril] 10 mg PO TID PRN #20 tab 01/19/20 [Rx] Ondansetron [Zofran ODT] 4 mg PO Q6H PRN #20 tab.dis 01/19/20 [Rx] Acetaminophen/HYDROcodone [Protem 325-5 MG] 1 - 2 tab PO Q6H PRN 01/31/20 [History] rOPINIRole [Requip] 1 mg PO QID 02/01/20 [History] Ibuprofen [Advil Liqui-Gels] 200 mg PO 08/16/20 [History] Past Medical History HEENT History: Reports: Impaired Vision, Other (See Below) Other HEENT History: sinus polyp, disease of lips, visual loss, wears glasses Cardiovascular History: Reports: Heart Failure, High Cholesterol, Hypertension, Other (See Below) Other Cardiovascular History: Bilat. venous stasis Respiratory History: Reports: Asthma, Bronchitis, Recurrent, Pneumonia, Recurrent, Sleep Apnea, SOB Other Respiratory History: SOB r/t pneumonia, not present w/o pneumonia. Gastrointestinal History: Reports: Chronic Constipation, Chronic Diarrhea, GERD Genitourinary History: Reports: Other (See Below), UTI, Recurrent Other Genitourinary History: bladder cancer, cervical mucous polyp, hematuria, incontinence, bladder surgery [employer] History: Reports: , Other (See Below) Other [employer] History: dysmenorrhea, vaginitis, breast biopsy Musculoskeletal History: Reports: Arthritis, Back Pain, Chronic, Osteoarthritis, Other (See Below) Other Musculoskeletal History: tarsal tunnel syndrome, left knee pain, patellofemoral syndrome, joint pain, myalgia, myositis Neurological History: Reports: Migraines, Neuropathy, Diabetic, Other (See Below) Other Neuro History: cervical herniated nucleus pulposus, meningioma Psychiatric History: Reports: Anxiety, Depression, Other (See Below) Other Psychiatric History: insomnia, pain management Endocrine/Metabolic History: Reports: Diabetes, Type II, Obesity/BMI 30+ Hematologic History: Reports: Anemia Immunologic History: Reports: None Oncologic (Cancer) History: Reports: Bladder Dermatologic History: Reports: Other (See Below) Other Dermatologic History: SQ skin infection, hair follicle infection, skin hypertrophy, viral warts, sore on left buttock. - Infectious Disease History Infectious Disease History: Reports: Chicken Pox, Measles, Mumps - Past Surgical History HEENT Surgical History: Reports: Adenoidectomy, Naso-Sinus Surgery, Tonsillectomy Cardiovascular Surgical History: Reports: None Respiratory Surgical History: Reports: None GI Surgical History: Reports: None Female Surgical History: Reports: Hysterectomy Other Female Surgeries/Procedures: cancerous bladder tumor removed. Endocrine Surgical History: Reports: None Neurological Surgical History: Reports: Other (See Below), Spinal Fusion Other Neurological Surgeries/Procedures: spine surgery, brain surgery Musculoskeletal Surgical History: Reports: Carpal Tunnel, Knee Replacement, Other (See Below) Other Musculoskeletal Surgeries/Procedures:: foot surgery x2, RTK, tarsal tunnel surgery Oncologic Surgical History: Reports: None Other Oncologic Surgeries/Procedures: Meningioma removed from brain. Dermatological Surgical History: Reports: None Social & Family History - Family History Family Medical History: No Pertinent Family History - Tobacco Use Tobacco Use Status *Q: Never Tobacco User - Caffeine Use Caffeine Use: Reports: Soda - Recreational Drug Use Recreational Drug Use: No - Living Situation & Occupation Living situation: Reports: , with Family (Mother) Occupation: Retired ED ROS GENERAL - Review of Systems Review Of Systems: Comprehensive ROS is negative, except as noted in HPI. ED EXAM,LOWER BACK PAIN/INJURY - Physical Exam Exam: See Below General Appearance: Alert, WD/WN, No Apparent Distress Respiratory/Chest: No Respiratory Distress, Lungs Clear, Normal Breath Sounds, No Accessory Muscle Use, Chest Non-Tender Cardiovascular: Normal Peripheral Pulses, Regular Rate, Rhythm, No Edema, No Gallop, No JVD, No Murmur, No Rub Back Exam: Normal Inspection, Vertebral Tenderness (L4-L5) Extremities: Normal Inspection, Normal Range of Motion, Non-Tender, No Pedal Edema, Normal Capillary Refill Neurological: Alert, Normal Mood/Affect, Normal Dorsiflexion, CN II-XII Intact, Normal Plantar Flexion, Normal Gait, Normal Reflexes, No Motor/Sensory Deficits, Oriented x 3 Psychiatric: Normal Affect, Normal Mood Skin Exam: Warm, Dry, Intact, Normal Color, No Rash Course - Vital Signs Last Recorded V/S: Last Vital Signs Temp 98.1 F 08/16/20 15:41 Pulse 87 08/16/20 15:41 Resp 22 H 08/16/20 15:41 BP 145/62 H 08/16/20 15:41 Pulse Ox 94 L 08/16/20 15:41 - Orders/Labs/Meds Meds: Medications Discontinued Medications Generic Name Dose Route Start Last Admin Trade Name Vaibhav PRN Reason Stop Dose Admin Hydrocodone Bitart/Acetaminophen 1 tab 08/16/20 16:03 08/16/20 16:08 Acetaminophen/Hydrocodone 325-5 Mg Tab PO 08/16/20 16:04 1 tab ONETIME ONE Administration Ketorolac Tromethamine 60 mg 08/16/20 16:06 08/16/20 16:11 Ketorolac 60 Mg/2 Ml Sdv IM 08/16/20 16:07 60 mg ONETIME ONE Administration - Re-Assessments/Exams Free Text/Narrative Re-Assessment/Exam: Patient is a 65-year-old female presenting to the emergency department with complaints of worsening of her chronic low back pain after having stress test completed approximately 1 week ago. She is currently on fentanyl patch 25 mcg as well as hydrocodone 5/325 every 4 hours as needed for discomfort. She also has Flexeril 10 mg every 8 hours. Review of the [employer] indicate that she has been on fentanyl and hydrocodone for at least the last 2 years. Given this long history, she likely has developed somewhat of a tolerance to opiates. She has had no recent injuries to the area. Given that this is a chronic problem and she is had no new injuries to the area, x-ray would not be indicated at this point. For today's purposes, we will give her an injection of Toradol 60 mg IM. Would recommend that she increase her Protem to 1-2 tabs every 4 hours as needed for discomfort. We will give her an additional 1 tab in the emergency department today. Recommend that she contact her primary care provider, Dr. Quiros, and her neurosurgeon, Dr. Alejandra on Monday to let them know of her worsening symptoms and the change in dosing on her hydrocodone. She is in agreement with this plan. Discharge instructions as documented. Departure - Departure Time of Disposition: 16:15 Disposition: Home, Self-Care 01 Condition: Good Clinical Impression: Exacerbation of chronic back pain - Discharge Information *PRESCRIPTION DRUG MONITORING PROGRAM REVIEWED*: Yes *COPY OF PRESCRIPTION DRUG MONITORING REPORT IN PATIENT SHRADDHA: No Instructions: Chronic Back Pain, [id number], Pain Medicine Instructions, [id number] Referrals: Bill Quiros MD [Primary Care Provider] - Forms: ED Department Discharge Additional Instructions: You were seen in the emergency department today for worsening of your chronic low back pain. While in the ER, you received an injection of Toradol and an additional tablet of hydrocodone with Tylenol. I would recommend that you continue your fentanyl patch as prescribed. You may increase your Protem to 1-2 tabs every 4 hours as needed for pain. Also continue your Flexeril 10 mg as previously prescribed. I would recommend starting with 1 tablet of hydrocodone every 4 hours. If you not have relief after 1 hour, you may take a second tablet. Do not exceed 2 tablets in a 4 hour period. Call Monday to follow-up with your primary care provider and also contact Dr. Hernandez's office to let him know of your worsening symptoms. Return to ER as needed. Sepsis Event Note (ED) - Evaluation Sepsis Screening Result: No Definite Risk
== END 2020-08-16 16:30 | disposition home or self-care (01) ==
LOC: JD.ED 15:21
DX: G89.29 Other chronic pain (principal); M54.5 Low back pain; E78.00 Pure hypercholesterolemia, unspecified; I11.0 Hypertensive heart disease with heart failure; I50.9 Heart failure, unspecified; K21.9 Gastro-esophageal reflux disease without esophagitis; E11.9 Type 2 diabetes mellitus without complications; E66.9 Obesity, unspecified; Z68.30 Body mass index [BMI] 30.0-30.9, adult; Z79.4 Long term (current) use of insulin; Z79.899 Other long term (current) drug therapy; Z88.0 Allergy status to penicillin; Z79.82 Long term (current) use of aspirin; Z88.5 Allergy status to narcotic agent; Z88.1 Allergy status to other antibiotic agents; Z88.8 Allergy status to other drugs, medicaments and biological substances
CPT/HCPCS: 96372; 99283; A9270; J1885

== ENCOUNTER 2022-05-17 12:15 | Emergency (ER) | payer MEDICARE, BC ==
[2022-05-17] MEDS ORDERED: Sodium Chloride 0.9% 1,000 ML IV STA (12:33)
[2022-05-17] MEDS ORDERED: Ondansetron 4 MG/2 ML SDV IVPUSH ONE (12:33)
[2022-05-17] MEDS ORDERED: Sodium Chloride 0.9% 10 ML Syringe FLUSH PRN (12:33)
[2022-05-17 14:23] VITALS: PULSE 87
[2022-05-17] MEDS ORDERED: Metoclopramide 10 MG/2 ML SDV IVPUSH ONE (14:42)
[2022-05-17] MEDS ORDERED: Iopamidol 755 Mg/ML 100 ML Bottle IVPUSH ONE (14:43)
[2022-05-17] MEDS ORDERED: Sodium Chloride 0.9% 10 ML Syringe FLUSH ONE (14:43)
[2022-05-17] MEDS ORDERED: Sodium Chloride 0.9% 100 ML IV SCH (14:45)
[2022-05-17 15:26] VITALS: BP 143/55
== END 2022-05-17 22:25 | disposition home or self-care (01) ==
LOC: JD.ED 12:15
DX: K52.9 Noninfective gastroenteritis and colitis, unspecified (principal); Z88.1 Allergy status to other antibiotic agents; Z88.5 Allergy status to narcotic agent; Z88.8 Allergy status to other drugs, medicaments and biological substances; Z79.82 Long term (current) use of aspirin; Z79.4 Long term (current) use of insulin
CPT/HCPCS: 36415; 74018; 74177; 80053; 82947; 83690; 85025; 96361; 96374; 96375; 99285; J2405; J2765; J3490; J7030; Q9967

== ENCOUNTER 2022-11-14 07:11 | Day surgery (SDC) | payer MEDICARE, BC ==
[~2022-11-14 07:11] MED LIST changes: +Dexmedetomidine 200 MCG/2 ML SDV ONE; +EPINEPHrine 1 MG/ML SDV ONE; -Lidocaine 1%/Sod Bicarbonate in NS 8.4% 1 ML Syringe IDERM PRN; +Midazolam 1 MG/ML 2 ML SDV ONE; +Propofol 200 MG/20 ML SDV ONE; +Ropivacaine 0.5% 5 MG/ML 30 ML SDV ONE; +Scopolamine 1.5 MG Transdermal Patch TRDERM ONE; +Sodium Chloride 0.9% 10 ML Syringe FLUSH SCH; +ceFAZolin 2 GM Vial ONE
[2022-11-14] MEDS ORDERED: oxyCODONE ER 10 MG TAB.ER PO ONE (07:16)
[2022-11-14] MEDS ORDERED: Acetaminophen 325 MG Tab PO ONE (07:16)
[2022-11-14] MEDS ORDERED: Pregabalin 25 MG Cap PO SCH ×2 (07:29→09:00)
[2022-11-14] MEDS ORDERED: Midazolam 1 MG/ML 2 ML SDV ONE (07:48)
[2022-11-14] MEDS ORDERED: fentaNYL 100 MCG/2 ML SDV ONE (07:49)
[2022-11-14] MEDS ORDERED: Lidocaine 1% 5 ML VIAL ONE (07:54)
[2022-11-14] MEDS: Tranexamic Acid 1,000 MG/10 ML Vial ONE ×2 (08:34→09:15)
[2022-11-14] MEDS: Vancomycin 1 GM SDV ONE ×2 (08:34→09:15)
[2022-11-14] MEDS: Morphine 8 MG, EPINEPHrine 0.3 MG, Cefuroxime 750 MG, Ketorolac 30 MG, Sodium Chloride ... PRN ×10 (08:34→09:05)
[2022-11-14] MEDS ORDERED: Ondansetron 4 MG/2 ML SDV IVPUSH PRN (08:35)
[2022-11-14] MEDS ORDERED: fentaNYL 100 MCG/2 ML SDV IVPUSH PRN (08:35)
[2022-11-14] MEDS ORDERED: ePHEDrine 50 MG/ML SDV ONE ×2 (08:41→08:58)
[2022-11-14] MEDS ORDERED: Phenylephrine 1% 10 MG/ML SDV ONE (08:41)
[2022-11-14] MEDS ORDERED: Lactated Ringers 1,000 ML ONE (09:32)
[2022-11-14 11:47] VITALS: BP 140/89; PULSE 73
== END 2022-11-14 13:06 | disposition home or self-care (01) ==
LOC: JD.SDS 07:11
PROVIDERS: ATTEND Orthopaedic Surgery
DX: M17.12 Unilateral primary osteoarthritis, left knee (principal); F33.42 Major depressive disorder, recurrent, in full remission; I11.0 Hypertensive heart disease with heart failure; I50.32 Chronic diastolic (congestive) heart failure; G47.33 Obstructive sleep apnea (adult) (pediatric); M79.81 Nontraumatic hematoma of soft tissue; F41.9 Anxiety disorder, unspecified; K21.9 Gastro-esophageal reflux disease without esophagitis; J45.909 Unspecified asthma, uncomplicated; E78.00 Pure hypercholesterolemia, unspecified; G47.00 Insomnia, unspecified; G43.909 Migraine, unspecified, not intractable, without status migrainosus; I25.2 Old myocardial infarction; E11.42 Type 2 diabetes mellitus with diabetic polyneuropathy; E66.9 Obesity, unspecified; Z79.82 Long term (current) use of aspirin; Z79.4 Long term (current) use of insulin; Z79.899 Other long term (current) drug therapy; Z88.0 Allergy status to penicillin; Z88.1 Allergy status to other antibiotic agents; Z88.8 Allergy status to other drugs, medicaments and biological substances; Z79.01 Long term (current) use of anticoagulants; Z88.5 Allergy status to narcotic agent
CPT/HCPCS: 0055T; 27447; 73560; 97110; 97116; 97161; A9270; C1713; C1776; J0171; J0690; J0697; J1885; J2250; J2270; J2370; J2704; J2795; J3010; J3370; J7030; J7120; 01402; 64447; J3490